=== PATIENT | male | born 1965 | race Caucasian/White ===

== ENCOUNTER 2017-11-18 13:26 | Day surgery (SDC) | payer MEDICARE, SELFPAY ==
[2017-11-18 15:03] VITALS: BP 144/99; PULSE 89; RESP 18; O2SAT 95; BMI 32.5
[2017-11-18 15:48] VITALS: BP 114/93; PULSE 92; RESP 20; O2SAT 98
[2017-11-18 15:49] VITALS: BP 115/85; PULSE 76; RESP 20; O2SAT 99
--- NOTE | 2017-11-18 15:52 | HMH.PMPROC ---
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 He is doing well with his pump. He does have some increasing pain with increased activity. We will refill his pump and increase his infusion today. He does have a normal gait. Motor strength of the lower extremities is 5/5. There is no gross sensory deficit. He is currently going at 1.2 mg per day Procedure Details:: Informed consent was obtained and the risks and benefits of the procedure was explained to the patient. The patient was taken to the procedure room. The pump was interrogated. The area over the pump was prepped using ChloraPrep. The pump was accessed with a 22-gauge needle. Approximately 6 mL's of the intrathecal solution was withdrawn and discarded. The pump was then refilled with 20 mL's of intrathecal morphine 10 mg per ml. The pump was interrogated and the infusion was increased to 1.5 mg per day from 1.2 mg per day. The patient tolerated the procedure well with no complication. Plan and Disposition:: We will follow-up with him in 3 months at his next pump refill.
[2017-11-18 16:26] VITALS: BP 127/85; PULSE 82; RESP 16; O2SAT 97
[2017-11-18 21:06] LABS: Amphetamine/Metha Screen,Urine Negative ng/mL (<1000); Barbiturates Screen,Urine Negative ng/mL (<200); Benzodiazepines Screen,Urine Negative ng/mL (200); Cannabinoid Screen,Urine Negative ng/mL (<50); Cocaine Screen,Urine Negative ng/g (<300); Methadone Screen,Urine Negative ng/mL (<300); Opiate Screen,Urine Negative ng/mL (<300); Phencyclidine Screen,Urine Negative ng/mL (<25)
[2017-11-29 11:08] LABS: Codeine Negative (Cutoff=100); Hydrocodone Negative (Cutoff=100); Hydromorphone Negative (Cutoff=100); Morphine Positive (.)
[2017-11-29 18:28] LABS: Opiates Positive (.)
== END 2017-11-18 16:27 | disposition home or self-care (01) ==
LOC: SC.PAINP 13:28
PROVIDERS: PCP Internal Medicine Adolescent Medicine; Visit Provider Nurse Anesthetist, Certified Registered
DX: M51.16 Intervertebral disc disorders with radiculopathy, lumbar region (principal); M96.1 Postlaminectomy syndrome, not elsewhere classified
CPT/HCPCS: 62370; 80305; 80361; G0480

== ENCOUNTER 2018-02-05 10:05 | Day surgery (SDC) | payer MEDICARE, SELFPAY ==
[2018-02-05 10:16] VITALS: BP 130/70; PULSE 106; RESP 22; TEMP 36.8; O2SAT 96; BMI 33.2
--- NOTE | 2018-02-05 10:20 | PC.NURSE ---
PATIENT ALERT/ORIENTED AND AMBULATORY AT ASSESSMENT. NO RESPIRATORY DISTRESS NOTED, RATE/DEPTH/RHYTHM APPROPRIATE.
--- NOTE | 2018-02-05 10:44 | HMH.PMPROC ---
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 Is doing well with his intrathecal pump. He is currently going at 1.5 mg per day. He does have some increased pain with increased activity and is requesting an increase in his daily dose today. We will refill him and increase him to 1.7 mg per day. He does have a normal gait. Motor strength of the lower extremities is 5 out of 5 there is no gross sensory deficit. Procedure Details:: Informed consent was obtained and the risks and benefits of the procedure was explained to the patient. The patient was taken to the procedure room. The pump was interrogated. The area over the pump was prepped using ChloraPrep. The pump was accessed with a 22-gauge needle. Approximately 6 mL of the intrathecal solution was withdrawn and discarded. The pump was then refilled with 20 mL's of intrathecal morphine 10 mg/mL. The pump was interrogated and the infusion was increased to 1.7 mg per day. PTC will remain the same. The patient tolerated the procedure well with no complication. Plan and Disposition:: We will follow-up with him in 2 weeks. We will reevaluate his symptoms at that time.
[2018-02-05 10:45] VITALS: BP 138/88; PULSE 101; RESP 20; O2SAT 98
[2018-02-05 10:46] VITALS: BP 121/88; PULSE 106; RESP 18
[2018-02-05 11:00] VITALS: BP 134/83; PULSE 98; RESP 18; O2SAT 97
== END 2018-02-05 11:00 | disposition home or self-care (01) ==
LOC: SC.PAINP 10:08
PROVIDERS: PCP Internal Medicine Adolescent Medicine; Visit Provider Anesthesiology
DX: M51.16 Intervertebral disc disorders with radiculopathy, lumbar region (principal); M96.1 Postlaminectomy syndrome, not elsewhere classified
CPT/HCPCS: 62370

== ENCOUNTER → 2018-06-25 11:42 | Outpatient (POV) | payer MEDICARE, SELFPAY ==
[2018-06-25] MEDS: IOPAMIDOL-200 (41%);10ML VIAL 10 ML IV (14:02)
== END ==
PROVIDERS: PCP Internal Medicine Adolescent Medicine; Visit Provider Anesthesiology
DX: Y99.9 Unspecified external cause status (principal)
CPT/HCPCS: Q9966

== ENCOUNTER → 2018-11-08 09:36 | Outpatient (POV) | payer MEDICARE, SELFPAY ==
--- NOTE | 2018-11-08 09:56 | HMH.PMPROC ---
- Procedure Date: 11/08/18 Time: 09:56 Anesthesiologist:: Daphney Phillips APRN Complications:: None Pre-procedure Diagnosis:: Degenerative disc disease lumbar spine with lumbar radiculopathy and postlaminectomy syndrome, sacroiliitis Post-procedure Diagnosis:: Same Indications for Procedure:: Patient is a pleasant 53-year-old white male who presents today for intrathecal pain pump adjustment. Patient has had increasing right SI joint pain. Patient has had SI joint injections in the past with good relief getting up to 80% relief for up to 6 months. Patient is currently on a equal periodic flow of 0.3 mg every 2 hours. He does well with this it denies side effects. Patient is having slight increase in his back pain. We will increase him today. Physical Exam General: Alert and oriented x3, no acute distress, pleasant and cooperative, [on room air] Lungs: Resps E/U, Symmetrical chest expansion, Eyes: PERRL Musculoskeletal: Flexion and extension of lumbar spine somewhat guarded secondary to pain, deep tendon reflexes normal, strength in upper and lower extremities [5/5], [abnormal gait noted], positive Ricco's test on the right side Neurological: speech clear, operator coating furnace equal, no gross sensory deficits Procedure Details:: Informed consent was obtained and the risk and benefits of the procedure were explained to the patient. The patient was taken to the procedure room where noninvasive monitoring was placed including noninvasive blood pressure cuff and pulse oximeter. Patient's pump was interrogated. The infusion rate was increased to 0.325 mg every 2 hours of morphine.. The patient tolerated the procedure well. Plan and Disposition:: We will follow-up with the patient and schedule a right SI joint injection for him. I believe it would be beneficial given his symptomology and his good relief in the past with this injection. Patient has been instructed to call the office if he has any issues prior to his next appointment. This note was dictated using voice recognition software and may contain errors or omissions
[2018-11-08 10:43] VITALS: BP 138/96; PULSE 101; RESP 18; O2SAT 98; BMI 32.5
== END ==
PROVIDERS: PCP Internal Medicine Adolescent Medicine; Visit Provider Clinical Nurse Specialist Family Health
DX: M51.36 Other intervertebral disc degeneration, lumbar region (principal); M96.1 Postlaminectomy syndrome, not elsewhere classified; M46.1 Sacroiliitis, not elsewhere classified
CPT/HCPCS: 62368

== ENCOUNTER → 2019-08-16 13:20 | Outpatient (CLI) | payer MEDICARE, SELFPAY ==
[2019-08-16 16:02] LABS: Amphetamine/Metha Screen,Urine Negative ng/mL (<1000); Barbiturates Screen,Urine Negative ng/mL (<200); Benzodiazepines Screen,Urine Negative ng/mL (<200); Cannabinoid Screen,Urine Negative ng/mL (<50); Cocaine Screen,Urine Negative ng/mL (<300); Methadone Screen,Urine Negative ng/mL (<300); Opiate Screen,Urine Positive ng/mL (<300); Phencyclidine Screen,Urine Negative ng/mL (<25)
[2019-08-22 15:09] LABS: Codeine Negative (Cutoff=100); Hydrocodone Negative (Cutoff=100); Hydromorphone Negative (Cutoff=100); Morphine Positive (.)
[2019-08-23 14:59] LABS: Opiates Positive (.)
== END ==
PROVIDERS: Visit Provider Clinical Nurse Specialist Family Health
DX: Z79.899 Other long term (current) drug therapy (principal)
CPT/HCPCS: 80305; 80361; 80365; G0480

== ENCOUNTER → 2019-12-22 06:18 | Outpatient (CLI) | payer MEDICARE, SELFPAY ==
--- NOTE | 2019-12-22 06:21 | NM_ITS ---
APPROVED REPORT Exam: Nuclear Stress Test Indication: chest pain..short of breath..[id number] Patient Location: Outpatient Stress Tech: Nahomi Jones [place] Tech:Roselyn SidhuJEFFERSON RT(R)(N) Ht: 6 ft 0 in Wt: 237 lbs HR: 84 bpm BP: 123/72 mmHg BSA: 2.29 m2 History: chest pain..short of breath..fatique Procedure: Patient received a 0.4 mg of intravenous Lexiscan, resting heart rate 84 bpm, resting blood pressure 123/72 mmHg, with Lexiscan maximum heart rate achived was 132 bpm which is Less than 85 % of the maximum predicted heart rate and blood pressure was 126/75 mmHg. Electrocardiogram Resting electrocardiogram showed sinus rhythm right ventricular conduction delay, with Lexiscan less than 1.[address] segment depression noted from the baseline EKG. The EKG portion of the Lexiscan Myoview is nondiagnostic. Cardiac Stress and Resting SPECT Images: Cardiac Stress and Resting SPECT images were obtained using technetium 99m Myoview 31.0 mCi stress and 10.51 mCi at rest. Gated SPECT with analysis of segmental wall motion and calculation of the ejection fraction also done. Cardiac stress and resting SPECT images show uniform myocardial activity without segmental perfusion abnormality, computer derived ejection fraction is 54% with no regional wall motion abnormality, right ventricle is mildly enlarged with normal contractility. Conclusion: 1. The EKG portion of the Lexiscan Myoview is nondiagnostic. 2. No scintigraphic evidence of reversible ischemia seen, computer derived ejection fraction 54% with no regional wall motion abnormality, right ventricle is mildly enlarged with normal contractility. 3. Likely normal Lexiscan Myoview study. Electronically signed by : Percy Sims, 12/22/2019 15:11:09
--- NOTE | 2019-12-22 06:21 | CA_ITS ---
APPROVED REPORT Exam: Pharmacologic Technologist: Nahomi Jones, Ht: 6 ft 0 in Wt: 237 lbs BSA: 2.29 m2 Indications: SOB,CP Medical History Medications: Omepazole,,,,, Stress Test Details Test: LEXISCAN Reason for pharmacologic stress test: physical limitation. Reversal agent Aminophyline 100.0 mg, given intravenously for chest pain. HR Resting HR: 93 bpm Max Heart Rate (APMHR): 167 bpm Max HR Achieved: 136 bpm Target HR (85% APMHR): 141 bpm % of APMHR: 81 BP Resting BP: 123/72 mmHg Max BP: 126/75 mmHg ECG Clinical Exercise duration: 04:26 min Highest Stage Achieved: Exercise capacity: 1.0 METs Stress ECG Conclusion SOA, Malaise, Flushed, mild nausea, mild chest pressure symptoms were noted. / No arrhythmias / No significant ST-T changes Unremarkable Lexiscan stress / Myoview images reported separately Electronically signed by : Percy Sims, 12/22/2019 15:09:14
--- NOTE | 2019-12-22 06:21 | CA_ITS ---
APPROVED REPORT EXAM: Comprehensive 2D, Doppler, and color-flow Echocardiogram Silk Screen Processor: Coral Pierce RVT Ht: 6 ft 0 in Wt: 253lbs BSA: 2.35 BP: 121/81 mmHg Indications: Chest Pain, Shortness of Breath, Palpitations,Ex smoker,Fatigue,Edema, Liver disease 2D Dimensions LVOT 2.59 cm (M/F) 1.5-2.5 M-Mode Dimensions RVDd 3.26 cm (0.9-2.6) LVDd 4.15 cm (3.5-5.7) LVDs 2.95 cm (3.5-5.7) IVSd 1.34 cm (0.6-1.1) PWd 0.58 cm (0.6-1.1) EF (Teich) 56.00% FS 28.90% EDV (Teich) 76.40 mL ESV (Teich) 33.60 mL LV Diastology E/A Ratio 0.72 Mitral Valve MV A Velocity 44.00 (40-130 cm/s) Left Ventricle Left atrium is mildly enlarged, left ventricle is normal size, mild concentric left ventricular hypertrophy, visually estimated ejection fraction 55% with no regional wall motion abnormality, endocardial sounds are poorly visualized, grade 1 diastolic dysfunction seen without tissue Doppler evidence of raise left atrial pressure. Right Ventricle Right atrium and right ventricle are mildly enlarged with normal contractility. Aortic Valve Aortic valve is minimally thickened and fibrosed, there is no aortic stenosis or aortic insufficiency. Mitral Valve Mitral valve is grossly normal, there is no mitral stenosis, there is mild mitral regurgitation. Tricuspid Valve Tricuspid valve is grossly normal, there is mild tricuspid regurgitation. Tricuspid regurgitation jet velocity is inadequate for calculation of the right ventricular systolic pressure. Pulmonic Valve Pulmonic valve is poorly visualized. Great Vessels Aortic root is normal size. Pericardium No significant pericardial effusion noted Conclusion 1. Mild biatrial abdomen, normal left ventricular size, mild concentric left ventricular hypertrophy, visually estimated ejection fraction 55% with no regional wall motion abnormality, grade 1 diastolic dysfunction seen without tissue Doppler evidence of raise left atrial pressure. 2. Mildly enlarged right ventricle with normal contractility. 3. Mild mitral and tricuspid regurgitation. 4. No significant pericardial effusion noted. Electronically signed by : Percy Sims, 12/23/2019 13:29:24
--- NOTE | 2019-12-22 06:31 | CT_ITS ---
PROCEDURE: CT CHEST WO CON CLINICAL INDICATION: shortness of breath Multiple calcified splenic granulomas are noted. COMPARISON: No exams were available for comparison TECHNIQUE: Axial images obtained with sagittal and coronal reformats. All CT scans at the facility use one or more dose reduction, viz: automated exposure control, ma/kV adjustment per patient size (including targeted exams where dose is matched to indication, i.e. head), or iterative reconstruction technique. FINDINGS: HEART AND MEDIASTINAL STRUCTURES: Multiple calcified mediastinal and left hilar lymph nodes compatible with healed granulomatous disease is noted. LUNGS AND PLEURAL SPACES: There is no acute infiltrate. There is scarring in the left apex. There is a calcified granuloma in the left upper lobe. There is no pleural or pericardial effusion or intrathoracic mass. There is mild bilateral gynecomastia. BONY STRUCTURES: No acute bony abnormalities apparent. A 5 millimeter sclerotic focus is seen in the anterior right lateral aspect of T9. Benign bone island is favored. UPPER ABDOMEN: There is splenomegaly spleen measuring up to 15.1 centimeters pole to pole. Multiple calcified splenic granulomas are noted. There has been prior cholecystectomy. ADDITIONAL FINDINGS: Spinal electro projects along the posterior central spinal canal at T11. IMPRESSION: No acute cardiopulmonary pathology. Healed granulomatous disease. Nonspecific splenomegaly. Dictated by: Cristobal Licona 12/22/2019 09:45 Electronically signed by Cristobal Licona in [place] 12/22/2019 09:45
--- NOTE | 2019-12-22 08:56 | HMH.ITSHM ---
Current Home Medications as stated by this patient Duke Espinoza or industrial relations representative. [] omeprazole
== END ==
PROVIDERS: PCP Family Medicine; Visit Provider Urology
DX: R06.02 Shortness of breath; R07.89 Other chest pain; R42 Dizziness and giddiness
CPT/HCPCS: 71250; 78452; 93017; 93306; A9502; J2785

== ENCOUNTER 2020-01-26 08:19 | Day surgery (SDC) | payer MEDICARE, SELFPAY ==
[2020-01-26] VITALS (11 sets, daily range): BP systolic 96–134; BP diastolic 56–81; PULSE 54–92; RESP 16–20; TEMP 36.5; O2SAT 90–98; BMI 33.6
--- NOTE | 2020-01-26 | IR_ITS ---
APPROVED REPORT Patient Location: Outpatient Corporate Relations Director: JEFFERSON Soni RT (R) PROCEDURES Left heart catheterization Left ventriculogram Selective coronary angiogram INDICATION Recalcitrant angina pectoris Informed consent was obtained prior to the procedure. COMPLICATIONS none Estimated Blood Loss: less than 10 mls TECHNIQUE One percent lidocaine used to anesthetize the right anterior aspect of the wrist. The right radial artery was accessed via the Seldinger technique. A 6 German sheath was placed in the right radial artery. 2.5 mg of verapamil, 800 mcg of nitroglycerin, 1mg Lidocaine and 5000 U Heparin were given through the arterial sheath. The trap catheter was also used to perform left heart catheterization, left ventriculogram and selective coronary angiogram. At the end of the procedure the sheath was removed good hemostasis was achieved using Traclet band, patient was transferred to the postop holding area in stable condition. ANGIOGRAPHIC RESULTS The left main artery Normal The left anterior descending artery Is proximally normal and has mid vessel 10% luminal irregularities The circumflex artery Mild 10% luminal irregularities The right coronary artery Large dominant normal The KRAUSE ventriculogram reveals Normal 65% The left ventricular end-diastolic pressure 25 mmHg IMPRESSION Mild vwk-oara-cakijyyh coronary artery disease Normal ejection fraction Elevated LVEDP consistent with diastolic dysfunction PLAN 1. Medical management Electronically signed by : Arden Baez, 01/26/2020 10:14:41
[2020-01-26 09:12] LABS: Basophils # 0.1 K/mm3 (0-0.2); Basophils % 1.3 % (0.1-2.0); Eosinophils # 0.1 K/mm3 (0.0-0.4); Eosinophils % 2.7 % (0.1-12.0); Hematocrit 44.6 % (42.0-52.0); Hemoglobin 14.5 g/dL (14.1-18.0); Lymphocytes # 1.6 K/mm3 (0.7-4.5); Lymphocytes % 33.4 % (10-50); Mean Corpuscular HGB Conc 32.5 g/dL (31.8-35.4); Mean Corpuscular Hemoglobin 28.1 pg (27.0-31.2); Mean Corpuscular Volume 86.6 fl (80-94); Mean Platelet Volume 9.6 fl (7.4-10.4); Monocytes # 0.3 K/mm3 (0.1-1.0); Monocytes % 6.3 % (1.7-9.3); Neutrophils # 2.7 K/mm3 (1.8-7.8); Neutrophils % 56.3 % (37.0-80.0); Platelet Count 182 K/mm3 (142-424); Red Blood Count 5.15 M/mm3 (4.60-6.20); Red Cell Distribution Width 13.1 % (11.5-17.5); White Blood Count 4.9 K/mm3 (4.8-10.8)
[2020-01-26 09:15] LABS: Chloride 101 mmol/L (98-107); Potassium 3.9 mmoL/L (3.5-5.1); Sodium 137 mmol/L (136-145)
[2020-01-26 09:18] LABS: Anion Gap 14.9 mEq/L (5-15); Blood Urea Nitrogen 15 mg/dl (9-20); Calcium 9.5 mg/dl (8.4-10.2); Carbon Dioxide 25 mmol/L (22.0-30.0); Creatinine Clearance Estimated 170 mL/min (50-200); Estimated Glomerular Filt Rate 101 ml/min (>60); GFR (African American) 122 ML/MIN (>60); Glucose 119 mg/dl (74-100)
--- NOTE | 2020-01-26 10:18 | CA_ITS ---
APPROVED REPORT Ribber: NARA Laterality: Bilateral Study Quality: Good Indications: dizziness and syncope Doppler Spectral Velocity Analysis dICA (R) 47.10/13.50 cm/s dICA (L) 53.60/19.90 cm/s Maryann (R) 55.90/23.80 cm/s Maryann (L) 51.10/16.60 cm/s pICA (R) 63.10/10.70 cm/s pICA (L) 69.20/14.30 cm/s dCCA (R) 96.00/20.10 cm/s dCCA (L) 121.90/26.40 cm/s pCCA (R) 78.60/10.70 cm/s pCCA (L) 133.90/22.10 cm/s Vert (R) 54.20/5.90 cm/s Vert (L) 41.00/12.90 cm/s ICA/CCA 0.70 ICA/CCA 0.60 Findings Duplex evaluation demonstrates stenosis of the right proximal internal carotid artery <20% with PSV <140 cm/sec, EDV <100 cm/sec, and IC/CC Ratio <4.0.Duplex evaluation demonstrates stenosis of the left proximal internal carotid artery <20% with PSV <140 cm/sec, EDV <100 cm/sec, and IC/CC Ratio <4.0.Antegrade flow seen bilateral vertebral arteries. Conclusion No increased velocities to suggest hemodynamically significant stenosis in either internal carotid artery. Electronically signed by : Rajesh Cruz MD 01/26/2020 16:16:38
--- NOTE | 2020-01-26 13:13 | SUR.PHASEII ---
instructions done over phone with family member, stated understanding.
== END 2020-01-26 13:01 | disposition home or self-care (01) ==
LOC: RT 08:22
PROVIDERS: Internal Medicine; PCP Family Medicine; Visit Provider Physician Assistant
DX: R42 Dizziness and giddiness (principal); R55 Syncope and collapse; I25.118 Atherosclerotic heart disease of native coronary artery with other forms of angina pectoris; I11.0 Hypertensive heart disease with heart failure; I50.9 Heart failure, unspecified; Z87.891 Personal history of nicotine dependence; Z79.899 Other long term (current) drug therapy
CPT/HCPCS: 80048; 85025; 93458; 93880; 99152; C1725; C1769; J1644; Q9967

== ENCOUNTER → 2020-02-16 13:06 | Outpatient (CLI) | payer MEDICARE, SELFPAY ==
[2020-02-16 15:01] LABS: Blood Urea Nitrogen 13 mg/dl (9-20); Calcium 9.9 mg/dl (8.4-10.2); Carbon Dioxide 28 mmol/L (22.0-30.0); Chloride 97 mmol/L (98-107); Estimated Glomerular Filt Rate 88 ml/min (>60); GFR (African American) 107 ML/MIN (>60); Glucose 128 mg/dl (74-100); Sodium 136 mmol/L (136-145)
== END ==
PROVIDERS: Visit Provider Nurse Practitioner Family
DX: I25.118 Atherosclerotic heart disease of native coronary artery with other forms of angina pectoris (principal); R06.02 Shortness of breath; R94.30 Abnormal result of cardiovascular function study, unspecified
CPT/HCPCS: 36415; 80048

== ENCOUNTER → 2020-03-04 09:24 | Outpatient (CLI) | payer MEDICARE, SELFPAY ==
[2020-03-05 17:20] LABS: Covid-19 Nasal PCR Sendout Lex Not Detected
--- NOTE | 2020-03-05 17:36 | PC.NURSE ---
Notified PM retail pharmacy manager of negative COVID results. Attempted to reach patient by phone to give results, no answer, left message for pt to return call.
--- NOTE | 2020-03-05 19:00 | PC.NURSE ---
pt notified of negative COVID 19 results.
== END ==
PROVIDERS: PCP Family Medicine; Visit Provider Anesthesiology
DX: Z03.818 Encounter for observation for suspected exposure to other biological agents ruled out (principal)
CPT/HCPCS: U0003

== ENCOUNTER 2020-03-06 13:51 | Day surgery (SDC) | payer MEDICARE, SELFPAY ==
[2020-03-06 14:08] VITALS: BP 126/72; PULSE 95; RESP 18; O2SAT 96; BMI 32.5
[2020-03-06 14:39] VITALS: BP 123/77; PULSE 79; RESP 18
[2020-03-06 14:40] VITALS: BP 125/78; PULSE 85; RESP 18; O2SAT 99
--- NOTE | 2020-03-06 14:48 | P.PCN_ITS ---
- Procedure Date: 03/06/20 Time: 14:49 Anesthesiologist:: Daphney Phillips APRN Complications:: None Pre-procedure Diagnosis:: Degenerative disc disease lumbar spine with lumbar radiculopathy Post-procedure Diagnosis:: Same Indications for Procedure:: Patient is a very pleasant 54-year-old white male who presents today for intrathecal Pain pump refill and reprogram. Patient's Cyril #[id number] reviewed and appropriate. Patient is currently on morphine periodic flow 0.6 mg every 2 hours. He would like a slight increase today. He rates his pain a 6 out of 10 Physical Exam General: Alert and oriented x3, no acute distress, pleasant and cooperative, [on room air] Lungs: Resps E/U, Symmetrical chest expansion, Eyes: PERRL Musculoskeletal: Flexion and extension of lumbar spine somewhat guarded secondary to pain, deep tendon reflexes normal, strength in upper and lower extremities [5/5], [abnormal gait noted] Neurological: speech clear, criminal analyst equal, no gross sensory deficits Procedure Details:: Informed consent was obtained and the risk and benefits of the procedure were explained to the patient. The patient was taken to the procedure room where noninvasive monitoring was placed including noninvasive blood pressure cuff and pulse oximeter. Patient's pump was interrogated. The area over the pump was cleansed with chlorhexidine as a cleansing solution. In sterile fashion the pump was accessed with a 22-gauge needle. Approximately 7.5 mL's were removed of the pump solution and discarded appropriately. The pump was then refilled with 20 mL's of morphine 35 mg/mL. The needle was withdrawn and a bandage was placed over the puncture site. The infusion rate was reprogrammed to increased 0.7 mg per 2 hours. The patient tolerated the procedure well. Plan and Disposition:: I will follow-up with the patient at his next intrathecal pain pump refill and reprogram he is been instructed to call the office if he has any issues prior to his next appointment. Dr. Schwartz has reviewed this note and agrees with this plan of care. This note was dictated using voice recognition software and may contain errors or omissions
[2020-03-06 14:51] VITALS: BP 115/70; PULSE 83; RESP 18; O2SAT 96
== END 2020-03-06 14:53 | disposition home or self-care (01) ==
LOC: SC.PAINP 13:53
PROVIDERS: PCP Family Medicine; Visit Provider Clinical Nurse Specialist Family Health
DX: M51.16 Intervertebral disc disorders with radiculopathy, lumbar region (principal)
CPT/HCPCS: 62370

== ENCOUNTER 2020-05-07 14:28 | Day surgery (SDC) | payer MEDICARE, SELFPAY ==
[2020-05-07 14:40] VITALS: BP 127/75; PULSE 61; RESP 18; TEMP 36.7; O2SAT 96; BMI 31.8
--- NOTE | 2020-05-07 14:46 | P.PCN_ITS ---
- Procedure Date: 05/07/20 Time: 14:47 Anesthesiologist:: Daphney Phillips APRN Complications:: None Pre-procedure Diagnosis:: Degenerative disc disease lumbar spine with lumbar radiculopathy bilateral knee pain Post-procedure Diagnosis:: Same Indications for Procedure:: Patient is a pleasant 54-year-old white male who presents today for intrathecal pain pump refill and reprogram. Patient's Cyril reviewed and appropriate. Currently on morphine periodic flow going 0.7 mg every 2 hours. Overall doing well. He denies side effects to his medication. He rates his pain today 4 out of 10. Physical Exam General: Alert and oriented x3, no acute distress, pleasant and cooperative, [on room air] Lungs: Resps E/U, Symmetrical chest expansion, Eyes: PERRL Musculoskeletal: Flexion and extension of lumbar spine somewhat guarded secondary to pain, deep tendon reflexes normal, strength in upper and lower extremities [5/5], [abnormal gait noted] Neurological: speech clear, special procedures tech equal, no gross sensory deficits Procedure Details:: Informed consent was obtained and the risk and benefits of the procedure were explained to the patient. The patient was taken to the procedure room where noninvasive monitoring was placed including noninvasive blood pressure cuff and pulse oximeter. Patient's pump was interrogated. The area over the pump was c leansed with chlorhexidine as a cleansing solution. In sterile fashion the pump was accessed with a 22-gauge needle. Approximately 5 mL's were removed of the pump solution and discarded appropriately. The pump was then refilled with 20 mL's of morphine 35 mg/mL. The needle was withdrawn and a bandage was placed over the puncture site. The infusion rate was reprogrammed to continued on periodic flow 0.7 mg every 2 hours. The patient tolerated the procedure well. Plan and Disposition:: We will set the patient up for bilateral intra-articular knee injections given his symptomology I do believe this would be beneficial. We will continue his intrathecal therapy. He is been instructed to call the office if he has any issues prior to his next appointment. Dr. Schwartz has reviewed this note and agrees with this plan of care. This note was dictated using voice recognition software and may contain errors or omissions
[2020-05-07 14:56] VITALS: BP 145/85; PULSE 88; RESP 18; O2SAT 95
[2020-05-07 15:08] VITALS: BP 145/88; PULSE 85; RESP 18; O2SAT 96
[2020-05-07 15:14] VITALS: BP 120/75; PULSE 79; RESP 18; O2SAT 96
== END 2020-05-07 15:15 | disposition home or self-care (01) ==
LOC: SC.PAINP 14:31
PROVIDERS: PCP Family Medicine; Visit Provider Clinical Nurse Specialist Family Health
DX: M51.16 Intervertebral disc disorders with radiculopathy, lumbar region (principal); M25.561 Pain in right knee; M25.562 Pain in left knee; K21.9 Gastro-esophageal reflux disease without esophagitis; Z87.39 Personal history of other diseases of the musculoskeletal system and connective tissue; Z90.49 Acquired absence of other specified parts of digestive tract; Z88.8 Allergy status to other drugs, medicaments and biological substances; Z79.899 Other long term (current) drug therapy
CPT/HCPCS: 62370

== ENCOUNTER 2020-05-25 09:19 | Day surgery (SDC) | payer MEDICARE, SELFPAY ==
[2020-05-25 09:43] VITALS: BP 123/72; PULSE 84; RESP 18; TEMP 36.4; O2SAT 95; BMI 31.1
--- NOTE | 2020-05-25 10:25 | P.PCN_ITS ---
- Procedure Date: 05/25/20 Time: 10:25 Anesthesiologist:: Silvestre Schwartz MD Complications:: None Pre-procedure Diagnosis:: Bilateral knee pain with degenerative osteoarthritis Post-procedure Diagnosis:: Same Indications for Procedure:: This patient is a pleasant 54-year-old white male who we have been treating for low back pain with lumbar radicular symptoms. He does currently have an in trathecal morphine pain pump currently going at 0.7 mg every 2 hours on periodic flow. He is doing very well with his pump. He does have some increasing pain over both knees with degenerative osteoarthritis and chronic knee pain. We will do bilateral intra-articular knee injections today to help him with his pain symptoms. Procedure Details:: Bilateral knee pain Informed consent was obtained and the risk and benefits of the procedure was explained to the patient. Patient was taken to the procedure room. Both knees were prepped using ChloraPrep. a 25-gauge needle was used first laterally then medially to inject 10 mL bupivacaine 0.25% and Depo-Medrol 40 mg into each knee. We used a total of 80 mg Depo-Medrol for both knees. Patient tolerated procedure well with no complications. Plan and Disposition:: We will follow-up with him in 2 weeks. Will reevaluate symptoms at that time. He is commenting that he is having some increasing shoulder pain. Left shoulder is worse. He has had a previous rotator cuff tear. We will look at possibly doing injections in his left shoulder in the future.
[2020-05-25 10:27] VITALS: BP 135/88; BP 140/78; PULSE 85; RESP 18; O2SAT 98
[2020-05-25 10:45] VITALS: BP 105/68; PULSE 69; RESP 20; O2SAT 95
== END 2020-05-25 10:45 | disposition home or self-care (01) ==
LOC: SC.PAINP 09:21
PROVIDERS: PCP Family Medicine; Visit Provider Anesthesiology
DX: M17.0 Bilateral primary osteoarthritis of knee (principal); I10 Essential (primary) hypertension; K21.9 Gastro-esophageal reflux disease without esophagitis; Z87.891 Personal history of nicotine dependence; I25.10 Atherosclerotic heart disease of native coronary artery without angina pectoris; J44.9 Chronic obstructive pulmonary disease, unspecified; F41.9 Anxiety disorder, unspecified; F32.9 Major depressive disorder, single episode, unspecified; Z87.39 Personal history of other diseases of the musculoskeletal system and connective tissue; Z90.49 Acquired absence of other specified parts of digestive tract; G47.9 Sleep disorder, unspecified; Z79.899 Other long term (current) drug therapy
CPT/HCPCS: 20610; J1030

== ENCOUNTER → 2020-06-16 10:31 | Outpatient (CLI) | payer MEDICARE, SELFPAY ==
[2020-06-16 11:43] LABS: Basophils # 0.1 K/mm3 (0-0.2); Eosinophils # 0.1 K/mm3 (0.0-0.4); Eosinophils % 1.6 % (0.1-12.0); Hematocrit 43.1 % (42.0-52.0); Hemoglobin 14.8 g/dL (14.1-18.0); Lymphocytes # 1.7 K/mm3 (0.7-4.5); Lymphocytes % 29.7 % (10-50); Mean Corpuscular HGB Conc 34.3 g/dL (31.8-35.4); Mean Corpuscular Hemoglobin 28.9 pg (27.0-31.2); Mean Corpuscular Volume 84.1 fl (80-94); Mean Platelet Volume 7.7 fl (7.4-10.4); Monocytes # 0.3 K/mm3 (0.1-1.0); Monocytes % 4.8 % (1.7-9.3); Neutrophils # 3.5 K/mm3 (1.8-7.8); Neutrophils % 62.9 % (37.0-80.0); Platelet Count 163 K/mm3 (142-424); Red Blood Count 5.12 M/mm3 (4.60-6.20); Red Cell Distribution Width 13.7 % (11.5-17.5); White Blood Count 5.6 K/mm3 (4.8-10.8)
[2020-06-16 13:02] LABS: Alanine Aminotransferase 14 U/L (12-78); Albumin Level 4.4 g/dl (3.5-5.0); Albumin/Globulin Ratio 1.4 (1.1-1.8); Alkaline Phosphatase 159 U/L (38-126); Anion Gap 15.1 mEq/L (5-15); Aspartate Amino Transferase 22 U/L (17-59); Bilirubin,Total 0.7 mg/dl (0.2-1.3); Blood Urea Nitrogen 15 mg/dl (9-20); Calcium 9.3 mg/dl (8.4-10.2); Carbon Dioxide 27 mmol/L (22.0-30.0); Chloride 99 mmol/L (98-107); Chol/HDL Ratio 6.9 (1-3.5); Cholesterol 264 mg/dl (140-200); Estimated Glomerular Filt Rate 101 ml/min (>60); GFR (African American) 122 ML/MIN (>60); Globulin 3.1 g/dL (1.3-3.2); Glucose 100 mg/dl (74-100); HDL Cholesterol 38 mg/dl (40-60); Potassium 4.1 mmoL/L (3.5-5.1); Sodium 137 mmol/L (136-145); Total Protein,Serum 7.5 g/dl (6.3-8.2); Triglycerides 232 mg/dl (30-150); VLDL Cholesterol 46 mg/dL (0-40)
[2020-06-16 13:13] LABS: Direct LDL Cholesterol 177.31 mg/dL (100-129)
[2020-06-16 13:32] LABS: Thyroid Stimulating Hormone 4.28 uIU/mL (0.465-4.68)
== END ==
PROVIDERS: Visit Provider Family Medicine
DX: I10 Essential (primary) hypertension (principal); F41.1 Generalized anxiety disorder
CPT/HCPCS: 36415; 80053; 80061; 84443; 85025

== ENCOUNTER 2020-07-02 12:26 | Day surgery (SDC) | payer MEDICARE, SELFPAY ==
[2020-07-02 12:45] VITALS: BP 111/66; BP 111/69; PULSE 87; PULSE 91; RESP 18; TEMP 36.4; O2SAT 95; BMI 31.3
[2020-07-02 12:55] VITALS: BP 118/75; PULSE 91
[2020-07-02 12:56] VITALS: BP 119/78; PULSE 92; RESP 18; O2SAT 96
--- NOTE | 2020-07-02 12:59 | P.PCN_ITS ---
- Procedure Date: 07/02/20 Time: 12:59 Anesthesiologist:: Daphney Phillips APRN Complications:: None Pre-procedure Diagnosis:: Degenerative disc disease lumbar spine with lumbar radiculopathy Post-procedure Diagnosis:: Same Indications for Procedure:: Patient is a pleasant 54-year-old white male who we are treating for low back pain with lumbar radiculopathy. He is currently on intrathecal morphine pain pump going at 0.7 mg every 2 hours. Patient denies side effects with medication overall does well. He is going to have a urine drug screen today. His past drug screens have been appropriate. Patient Cyril reviewed and appropriate. Physical Exam General: Alert and oriented x3, no acute distress, pleasant and cooperative, Lungs: Resps E/U, Symmetrical chest expansion, Eyes: PERRL Musculoskeletal: Flexion and extension of lumbar spine somewhat guarded secondary to pain, deep tendon reflexes normal, strength in upper and lower extremities [5/5], normal gait noted Neurological: speech clear, hard hat diver equal, no gross sensory deficits Procedure Details:: Informed consent was obtained and the risk and benefits of the procedure were explained to the patient. The patient was taken to the procedure room where noninvasive monitoring was placed including noninvasive blood pressure cuff and pulse oximeter. Patient's pump was interrogated. The area over the pump was cleansed with chlorhexidine as a cleansing solution. In sterile fashion the pump was accessed with a 22-gauge needle. Approximately 7 mL's were removed of the pump solution and discarded appropriately. The pump was then refilled with 20 mL's of morphine 35 mg/mL. The needle was withdrawn and a bandage was placed over the puncture site. The infusion rate was reprogrammed to continue at 0.7 mg every 2 hours. The patient tolerated the procedure well. Plan and Disposition:: I will see the patient back at his next intrathecal pain pump refill and reprogram he has been instructed to call the office if he has any issues prior to his next appointment. Dr. Schwartz has reviewed this note and agrees with this plan of care. This note was dictated using voice recognition software and may contain errors or omissions
== END 2020-07-02 13:09 | disposition home or self-care (01) ==
LOC: SC.PAINP 12:29
PROVIDERS: PCP Family Medicine; Visit Provider Clinical Nurse Specialist Family Health
DX: M51.16 Intervertebral disc disorders with radiculopathy, lumbar region (principal); I10 Essential (primary) hypertension; K21.9 Gastro-esophageal reflux disease without esophagitis; Z87.39 Personal history of other diseases of the musculoskeletal system and connective tissue; Z90.49 Acquired absence of other specified parts of digestive tract
CPT/HCPCS: 95991

== ENCOUNTER 2020-09-03 13:43 | Day surgery (SDC) | payer MEDICARE, SELFPAY ==
[2020-09-03 14:00] VITALS: BP 122/78; PULSE 96; RESP 18; TEMP 36.4; O2SAT 95; BMI 31.1
[2020-09-03 14:24] VITALS: BP 114/75; PULSE 95; RESP 18
[2020-09-03 14:25] VITALS: BP 117/84; PULSE 85; RESP 18; O2SAT 98
--- NOTE | 2020-09-03 14:32 | HMH.PMPROC ---
- Procedure Date: 09/03/20 Time: 14:32 Anesthesiologist:: Daphney Phillips APRN Complications:: None Pre-procedure Diagnosis:: Degenerative disc disease lumbar spine lumbar radiculopathy Post-procedure Diagnosis:: Same Indications for Procedure:: Patient is a very pleasant 54-year-old white male who presents today for intrathecal pain pump refill and reprogram he would like a slight increase today. He rates the pain today a 5 out of 10. He denies any side effects his medication. [facility] #[id number] reviewed and appropriate. Drug screens have been appropriate Physical Exam General: Alert and oriented x3, no acute distress, pleasant and cooperative, [on room air] Lungs: Resps E/U, Symmetrical chest expansion, Eyes: PERRL Musculoskeletal: Flexion and extension of lumbar spine somewhat guarded secondary to pain, deep tendon reflexes normal, strength in upper and lower extremities [5/5], [abnormal gait noted] Neurological: speech clear, central sterile tech equal, no gross sensory deficits Procedure Details:: Informed consent was obtained and the risk and benefits of the procedure were explained to the patient. The patient was taken to the procedure room where noninvasive monitoring was placed including noninvasive blood pressure cuff and pulse oximeter. Patient's pump was interrogated. The area over the pump was cleansed with chlorhexidine as a cleansing solution. In sterile fashion the pump was accessed with a 22-gauge needle. Approximately 5.5 mL's were removed of the pump solution and discarded appropriately. The pump was then refilled with 20 mL's of morphine 35 mg/mL. The needle was withdrawn and a bandage was placed over the puncture site. The infusion rate was reprogrammed to 0.8 mg every 2 hours. The patient tolerated the procedure well. Plan and Disposition:: We will follow up with the patient at his next intrathecal pain pump refill and reprogram he has been instructed to call the office if he has any issues prior to his next appointment. Dr. Schwartz has reviewed this note and agrees with this plan of care. This note was dictated using voice recognition software and may contain errors or omissions
[2020-09-03 14:35] VITALS: BP 109/73; PULSE 89; RESP 18; O2SAT 95
== END 2020-09-03 14:36 | disposition home or self-care (01) ==
LOC: SC.PAINP 13:45
PROVIDERS: PCP Family Medicine; Visit Provider Clinical Nurse Specialist Family Health
DX: M51.16 Intervertebral disc disorders with radiculopathy, lumbar region (principal); Z45.1 Encounter for adjustment and management of infusion pump; I10 Essential (primary) hypertension; E78.5 Hyperlipidemia, unspecified; I25.10 Atherosclerotic heart disease of native coronary artery without angina pectoris; K21.9 Gastro-esophageal reflux disease without esophagitis; Z90.49 Acquired absence of other specified parts of digestive tract
CPT/HCPCS: 62370

== ENCOUNTER 2020-10-22 13:57 | Day surgery (SDC) | payer MEDICARE, SELFPAY ==
[2020-10-22 14:07] VITALS: BP 117/73; PULSE 90; RESP 18; TEMP 36.4; O2SAT 98; BMI 31.8
[2020-10-22 14:23] VITALS: BP 129/78; PULSE 85; RESP 18
[2020-10-22 14:27] VITALS: BP 130/75; PULSE 94; RESP 18; O2SAT 97
--- NOTE | 2020-10-22 14:30 | HMH.PMPROC ---
- Procedure Date: 10/22/20 Time: 14:30 Anesthesiologist:: Daphney Phillips APRN Complications:: None Pre-procedure Diagnosis:: Degenerative disc disease lumbar spine lumbar radiculopathy Post-procedure Diagnosis:: Same Indications for Procedure:: Patient is a pleasant 55-year-old white male who presents today for intrathecal pain pump refill and reprogram. He rates his pain today 4 out of 10. He denies any side effects his medication he would like a slight increase. [facility] #[id number] reviewed and appropriate. Patient struck screens have been appropriate. Procedure Details:: Informed consent was obtained and the risk and benefits of the procedure were explained to the patient. The patient was taken to the procedure room where noninvasive monitoring was placed including noninvasive blood pressure cuff and pulse oximeter. Patient's pump was interrogated. The area over the pump was cleansed with chlorhexidine as a cleansing solution. In sterile fashion the pump was accessed with a 22-gauge needle. Approximately 7.5 mL's were removed of the pump solution and discarded appropriately. The pump was then refilled with 20 mL's of morphine 35 mg/mL. The needle was withdrawn and a bandage was placed over the puncture site. The infusion rate was reprogrammed to 0.85 mg every 2 hours. The patient tolerated the procedure well. Plan and Disposition:: We will see the patient back at his next intrathecal pain pump refill and reprogram he has been instructed to call the office if he has any issues prior to his next appointment. Dr. Schwartz has reviewed this note and agrees with this plan of care. This note was dictated using voice recognition software and may contain errors or omissions
[2020-10-22 14:42] VITALS: BP 115/68; PULSE 91; RESP 20; O2SAT 98
== END 2020-10-22 14:44 | disposition home or self-care (01) ==
LOC: SC.PAINP 13:59
PROVIDERS: PCP Family Medicine; Visit Provider Clinical Nurse Specialist Family Health
DX: M51.16 Intervertebral disc disorders with radiculopathy, lumbar region (principal); I10 Essential (primary) hypertension; K21.9 Gastro-esophageal reflux disease without esophagitis; F41.9 Anxiety disorder, unspecified; F32.9 Major depressive disorder, single episode, unspecified; K75.9 Inflammatory liver disease, unspecified; Z88.6 Allergy status to analgesic agent; Z79.899 Other long term (current) drug therapy
CPT/HCPCS: 62370

== ENCOUNTER → 2020-12-10 15:17 | Day surgery (SDC) | payer MEDICARE, SELFPAY ==
[2020-12-10 15:34] VITALS: BP 139/83; PULSE 100; RESP 20; TEMP 36.3; O2SAT 98; BMI 32.5
[2020-12-10 15:38] VITALS: BP 124/83; PULSE 107; RESP 18; TEMP 36.8; O2SAT 97
[2020-12-10 15:46] VITALS: BP 125/88; BP 125/89; PULSE 108; RESP 18; O2SAT 98
--- NOTE | 2020-12-10 15:49 | HMH.PMPROC ---
- Procedure Date: 12/10/20 Time: 15:55 Anesthesiologist:: Daphney Phillips APRN Complications:: None Pre-procedure Diagnosis:: Degenerative disc disease lumbar spine lumbar radiculopathy Post-procedure Diagnosis:: Same Indications for Procedure:: Patient is a pleasant 55-year-old white male who presents today for intrathecal pain pump refill and reprogram he rates his pain a 4 out of 10 he does not need any changes to his intrathecal infusion. [facility] #[id number] reviewed and appropriate drug screens have been appropriate. Patient denies side effects with medications. Procedure Details:: Informed consent was obtained and the risk and benefits of the procedure were explained to the patient. The patient was taken to the procedure room where noninvasive monitoring was placed including noninvasive blood pressure cuff and pulse oximeter. Patient's pump was interrogated. The area over the pump was cleansed with chlorhexidine as a cleansing solution. In sterile fashion the pump was accessed with a 22-gauge needle. Approximately 6 mL's were removed of the pump solution and discarded appropriately. The pump was then refilled with 20 mL's of morphine 35 mg/mL. The needle was withdrawn and a bandage was placed over the puncture site. The infusion rate was reprogrammed to continue at 0.85 mg every 2 hours. The patient tolerated the procedure well. Plan and Disposition:: We will follow up with the patient and his next intrathecal pain pump refill and reprogram he has been instructed to call the office if he has any issues prior to his next appointment. Dr. Schwartz has reviewed this note and agrees with this plan of care. This note was dictated using voice recognition software and may contain errors or omissions
[2020-12-10 16:03] VITALS: BP 117/77; PULSE 95; RESP 18; O2SAT 98
== END | disposition home or self-care (01) ==
PROVIDERS: PCP Family Medicine; Visit Provider Clinical Nurse Specialist Family Health
DX: M51.16 Intervertebral disc disorders with radiculopathy, lumbar region (principal); Z45.1 Encounter for adjustment and management of infusion pump; I50.9 Heart failure, unspecified; I11.0 Hypertensive heart disease with heart failure; I25.10 Atherosclerotic heart disease of native coronary artery without angina pectoris; E78.5 Hyperlipidemia, unspecified; K21.9 Gastro-esophageal reflux disease without esophagitis; F32.9 Major depressive disorder, single episode, unspecified; J44.9 Chronic obstructive pulmonary disease, unspecified; Z79.899 Other long term (current) drug therapy; Z88.8 Allergy status to other drugs, medicaments and biological substances
CPT/HCPCS: 95991

== ENCOUNTER 2021-02-04 14:17 | Day surgery (SDC) | payer MEDICARE, SELFPAY ==
[2021-02-04 14:35] VITALS: BP 123/71; PULSE 87; RESP 20; TEMP 36.4; O2SAT 98; BMI 31.8
[2021-02-04 14:52] VITALS: BP 117/73; PULSE 84; RESP 18
[2021-02-04 14:54] VITALS: BP 117/77; PULSE 83; RESP 18; O2SAT 98
[2021-02-04 14:57] VITALS: BP 118/79; PULSE 85; RESP 18; O2SAT 98
--- NOTE | 2021-02-04 15:01 | P.PCN_ITS ---
- Procedure Date: 02/04/21 Time: 15:01 Anesthesiologist:: Daphney Phillips APRN Complications:: None Pre-procedure Diagnosis:: Degenerative disc disease lumbar spine lumbar radiculopathy and back pain Post-procedure Diagnosis:: Same Indications for Procedure:: Patient is a pleasant 55-year-old white male who presents today for intrathecal pain pump refill and reprogram he rates his pain a 6 out of 10. He is recently felt a pop in his lower back and states that he is having increased pain since then. We discussed getting a MRI however we will move forward with ordering steroids prior to this. We will see if this is beneficial for him. We will also increase his intrathecal therapy slightly. [facility] #[id number] reviewed and appropriate. He is currently on intrathecal morphine going at 0.85 mg every 2 hours. He denies side effects to the medication. Procedure Details:: Informed consent was obtained and the risk and benefits of the procedure were explained to the patient. The patient was taken to the procedure room where noninvasive monitoring was placed including noninvasive blood pressure cuff and pulse oximeter. Patient's pump was interrogated. The area over the pump was cleansed with chlorhexidine as a cleansing solution. In sterile fashion the pump was accessed with a 22-gauge needle. Approximately 3.5 mL's were removed of the pump solution and discarded appropriately. The pump was then refilled with 20 mL's of morphine 35 mg/mL. The needle was withdrawn and a bandage was placed over the puncture site. The infusion rate was reprogrammed to 0.875 mg every 2 hours. The patient tolerated the procedure well. Plan and Disposition:: We will give him prednisone 20 mg 1 p.o. twice daily for 5 days if he does not get any relief from this we will move forward with an updated MRI to help determine pathology of his new pain. He has been instructed to call the office if he has any issues. If he does not we will move forward with seeing him at his next intrathecal pain pump refill and reprogram. Dr. Schwartz has reviewed this note and agrees with this plan of care. This note was dictated using voice recognition software and may contain errors or omissions
== END 2021-02-04 14:58 | disposition home or self-care (01) ==
LOC: SC.PAINP 14:18
PROVIDERS: PCP Family Medicine; Visit Provider Clinical Nurse Specialist Family Health
DX: M51.16 Intervertebral disc disorders with radiculopathy, lumbar region (principal); Z45.1 Encounter for adjustment and management of infusion pump; I25.10 Atherosclerotic heart disease of native coronary artery without angina pectoris; J44.9 Chronic obstructive pulmonary disease, unspecified; I10 Essential (primary) hypertension; E78.5 Hyperlipidemia, unspecified; Z88.6 Allergy status to analgesic agent; K21.9 Gastro-esophageal reflux disease without esophagitis; F41.9 Anxiety disorder, unspecified; F32.9 Major depressive disorder, single episode, unspecified; Z79.899 Other long term (current) drug therapy
CPT/HCPCS: 62370

== ENCOUNTER → 2021-03-25 13:41 | Day surgery (SDC) | payer MEDICARE, SELFPAY ==
[2021-03-25 13:59] VITALS: BP 146/86; PULSE 91; RESP 18; TEMP 36.7; O2SAT 96; BMI 29.5
[2021-03-25 14:21] VITALS: BP 123/76; PULSE 87; RESP 18; O2SAT 95
[2021-03-25 14:25] VITALS: BP 123/76; PULSE 87; RESP 18; O2SAT 95
--- NOTE | 2021-03-25 14:33 | P.PCN_ITS ---
- Procedure Date: 03/25/21 Time: 14:34 Anesthesiologist:: Daphney Phillips APRN Complications:: None Pre-procedure Diagnosis:: Degenerative disc disease lumbar spine lumbar radiculopathy back pain, knee pain Post-procedure Diagnosis:: Same Indications for Procedure:: Patient is a pleasant 55-year-old white male who presents today for thecal pain pump refill and reprogram he would like an increase in his morphine infusion. He is currently on 0.875 mg every 2 hours. [facility] #[id number] reviewed and appropriate. Patient is having quite a bit of knee pain. Patient would like to move forward with bilateral intra-articular knee injections has had this in the past with extremely good relief. We will move forward with scheduling this for him today. Procedure Details:: Informed consent was obtained and the risk and benefits of the procedure were explained to the patient. The patient was taken to the procedure room where noninvasive monitoring was placed including noninvasive blood pressure cuff and pulse oximeter. Patient's pump was interrogated. The area over the pump was cleansed with chlorhexidine as a cleansing solution. In sterile fashion the pump was accessed with a 22-gauge needle. Approximately 3 mL's were removed of the pump solution and discarded appropriately. The pump was then refilled with 20 mL's of morphine 35 mg/mL. The needle was withdrawn and a bandage was placed over the puncture site. The infusion rate was reprogrammed to 1 mg every 2 hours. The patient tolerated the procedure well. Plan and Disposition:: We will see the patient back at his next appointment we will schedule him for bilateral intra-articular knee injections has been instructed to call the office if he has any issues prior to his next appointment. Dr. Schwartz has reviewed this note and agrees with this plan of care. This note was dictated using voice recognition software and may contain errors or omissions
== END ==
PROVIDERS: PCP Family Medicine; Visit Provider Clinical Nurse Specialist Family Health
DX: M51.16 Intervertebral disc disorders with radiculopathy, lumbar region (principal); Z45.1 Encounter for adjustment and management of infusion pump; I25.10 Atherosclerotic heart disease of native coronary artery without angina pectoris; E78.5 Hyperlipidemia, unspecified; I10 Essential (primary) hypertension; J44.9 Chronic obstructive pulmonary disease, unspecified; F41.9 Anxiety disorder, unspecified; F32.9 Major depressive disorder, single episode, unspecified
CPT/HCPCS: 62370

== ENCOUNTER 2021-04-12 10:29 | Day surgery (SDC) | payer MEDICARE, SELFPAY ==
[2021-04-12 10:49] VITALS: BP 134/80; PULSE 105; RESP 18; O2SAT 94; BMI 32.5
[2021-04-12 11:19] VITALS: BP 119/99; PULSE 94; RESP 18; O2SAT 99
[2021-04-12 11:22] VITALS: BP 119/75; PULSE 102; RESP 18; O2SAT 96
[2021-04-12 11:35] VITALS: BP 111/81; PULSE 85; RESP 18; O2SAT 94
--- NOTE | 2021-04-12 14:02 | P.PCN_ITS ---
- Procedure Date: 04/12/21 Time: 14:02 Anesthesiologist:: Ana Hylton MD Complications:: None Pre-procedure Diagnosis:: Bilateral knee osteoarthritis Post-procedure Diagnosis:: Same Indications for Procedure:: Patient is a very pleasant 55-year-old white male who presents today with bilateral knee pain related to bilateral knee osteoarthritis. He has previously undergone multiple injections to his knee joint with significant pain relief. He states the last 1 gave him greater than 80% pain relief for many months. He has trialed and failed conservative treatment including oral pain medications as well as physical therapy. Plan for today is for him to undergo repeat intra- articular knee injections today. Procedure Details:: Informed consent was obtained. Risks and benefits of the procedure were explained to the patient. Patient was taken back to the procedure room. Right and left knee was prepped using ChloraPrep. 5 gauge needle was used in a lateral to medial trajectory and the needle was advanced until the intra- articular knee joint was approached. An injectate solution of 10 mL of bupivacaine 0.25% and Depo-Medrol 40 mg was injected into the left knee. This was then repeated on the right side. Patient tolerated the procedure well with no complications. Plan and Disposition:: We will follow up with the patient in 2 weeks. Will reevaluate his pain symptoms at that time.
== END 2021-04-12 11:36 | disposition home or self-care (01) ==
LOC: SC.PAINP 10:30
PROVIDERS: PCP Family Medicine; Visit Provider Anesthesiology Pain Medicine
DX: M17.0 Bilateral primary osteoarthritis of knee (principal)
CPT/HCPCS: 20610; J1030

== ENCOUNTER 2021-05-20 15:12 | Day surgery (SDC) | payer MEDICARE, SELFPAY ==
[2021-05-20 15:23] VITALS: BP 136/79; PULSE 92; RESP 18; TEMP 36.6; O2SAT 98; BMI 31.8
[2021-05-20 15:39] VITALS: BP 118/76; PULSE 94; RESP 18; O2SAT 95
[2021-05-20 15:41] VITALS: BP 118/76; PULSE 90; RESP 18; O2SAT 95
--- NOTE | 2021-05-20 15:45 | P.PCN_ITS ---
- Procedure Date: 05/20/21 Time: 15:45 Anesthesiologist:: Gianna Gustafson APRN Complications:: None Pre-procedure Diagnosis:: Generative disc disease lumbar spine with lumbar radiculopathy symptoms, sacroiliitis bilateral, bilateral knee osteoarthritis Post-procedure Diagnosis:: Same Indications for Procedure:: Patient is a pleasant 55-year-old white male who presents today for intrathecal pain pump refill and reprogram. He is being treated for degenerative disc disease lumbar spine with lumbar radiculopathy symptoms. Patient rates his pain a 5 out of 10 today. He is having bilateral low back pain with radicular symptoms into his bilateral hip and groin. He is having difficulty standing and walking due to the pain. He does not want a change in his intrathecal therapy, however, says that he would like to undergo bilateral SI joint injections he has had these in the past and has done excellent with the injections getting up to 80 to 90% relief for greater than 6 weeks. He is tender to palpation to his bilateral SI joints. He also has positive Ricco's, compression, distraction test today. His [facility] #[id number] has been reviewed and is appropriate. Morphine equivalent is 0. He is continue with home stretching. Physical exam General: Alert and oriented x3, no acute distress, pleasant and cooperative, [on room air] Lungs: Respirations even and unlabored, symmetrical chest expansion Eyes: PERRL Musculoskeletal: Flexion and extension of lumbar spine somewhat guarded secondary to pain, deep tendon reflexes normal, strength in upper and lower extremities [5/5], [abnormal gait noted] Neurological: Speech clear, administrative assistant equal, no gross sensory deficit Procedure Details:: Informed consent was obtained and the risk and benefits of the procedure were explained to the patient. The patient was taken to the procedure room where noninvasive monitoring was placed including noninvasive blood pressure cuff and pulse oximeter. Patient's pump was interrogated. The area over the pump was cleansed with chlorhexidine as a cleansing solution. In sterile fashion the pump was accessed with a 22-gauge needle. Approximately 0.5 mls of the pump solution was removed and discarded appropriately. The pump was then refilled with 20 mL's of morphine 35 mg/mL. The needle was withdrawn and a bandage was placed over the puncture site. The infusion rate was reprogrammed at morphine 12 mg/day. The patient tolerated well with no complication. Plan and Disposition:: We will schedule the patient for bilateral SI joint injections. He does have a positive Ricco's test today as well as positive compression and distraction test. He is tender to palpation to his bilateral SI joints. We will see him back after his injections for reevaluation of symptoms. Patient has been instructed to contact the clinic with any concerns before the next appointment. Dr. Schwartz has reviewed this note and agrees with this plan of care. This note was dictated using voice recognition software and make contain errors or omissions.
[2021-05-20 15:49] VITALS: BP 135/79; PULSE 92; RESP 18; O2SAT 98
== END 2021-05-20 15:51 | disposition home or self-care (01) ==
LOC: SC.PAINP 15:13
PROVIDERS: PCP Family Medicine; Visit Provider Clinical Nurse Specialist Family Health
DX: M51.16 Intervertebral disc disorders with radiculopathy, lumbar region (principal); M46.1 Sacroiliitis, not elsewhere classified; M17.0 Bilateral primary osteoarthritis of knee; Z45.1 Encounter for adjustment and management of infusion pump
CPT/HCPCS: 62370

== ENCOUNTER 2021-05-27 14:58 | Day surgery (SDC) | payer MEDICARE, SELFPAY ==
[2021-05-27 15:11] VITALS: BP 121/70; PULSE 94; RESP 18; TEMP 36.7; O2SAT 98; BMI 31.8
[2021-05-27 15:57] VITALS: BP 126/81; PULSE 89; RESP 18; O2SAT 95
[2021-05-27 15:58] VITALS: BP 128/86; PULSE 91; RESP 18; O2SAT 95
--- NOTE | 2021-05-27 16:05 | P.PCN_ITS ---
- Procedure Date: 05/27/21 Time: 16:05 Anesthesiologist:: Gianna Gustafson APRN Complications:: None Pre-procedure Diagnosis:: Degenerative disc disease lumbar spine with lumbar radiculopathy symptoms, bilateral sacroiliitis Post-procedure Diagnosis:: Same Indications for Procedure:: Patient is a 55-year-old white male who presents today for bilateral SI joint injections. He has pain in bilateral low back with radiation into bilateral buttock and groin. He rates his pain a 7 out of 10. We will perform bilateral SI joint injections today to see if he gets relief. He has positive Ricco's, compression, distraction test. Physical exam General: Alert and oriented x3, no acute distress, pleasant and cooperative, [on room air] Lungs: Respirations even and unlabored, symmetrical chest expansion Eyes: PERRL Musculoskeletal: Flexion and extension of lumbar [spine] somewhat guarded secondary to pain, strength in upper and lower extremities [5/5], [antalgic gait noted] positive Ricco's test, positive distraction test, positive compression test Neurological: Speech clear, [special delivery worker equal], no gross sensory deficit Procedure Details:: Informed consent was obtained and the risk and benefits of the procedure were explained to the patient. The patient was taken to the procedure room and noninvasive monitors were placed including noninvasive blood pressure cuff and pulse oximeter. The patient was placed prone on the procedure table. The left side joint was cleansed using chlorhexidine as a cleansing solution. C-arm fluoroscopy was used to view the left SI joint. The skin and subcutaneous tissue were anesthetized using lidocaine 1.5% and 25-gauge needle. After this a 22-gauge spinal needle was inserted under fluoroscopic guidance into the inferior aspect of the left SI joint. Omnipaque dye was injected and good spread was seen throughout the joint. After this approximately 5 mils of bupivacaine 0.25% and Depo-Medrol 40 mg were incrementally injected into the sacroiliac joint. Then proceeded to the right SI joint. The skin and subcutaneous tissue were anesthetized using lidocaine 1.5% and 25-gauge needle. After this a 22-gauge spinal needle was inserted under fluoroscopic guidance into the inferior aspect of the right SI joint. Omnipaque dye was injected and good spread was seen throughout the right SI joint. After this approximately 5 mils of bupivacaine 0.25% and Depo-Medrol 40 mg were incrementally injected into the right sacroiliac joint The patient tolerated the procedure well with no complications. Plan and Disposition:: We will see the patient back in the clinic in 2 weeks for reevaluation of symptoms. Patient has been instructed to contact the clinic with any concerns before the next appointment. Dr. Schwartz has reviewed this note and agrees with this plan of care. This note was dictated using voice recognition software and make contain errors or omissions.
[2021-05-27 16:10] VITALS: BP 126/80; PULSE 80; RESP 18; O2SAT 98
== END 2021-05-27 16:10 | disposition home or self-care (01) ==
LOC: SC.PAINP 14:59
PROVIDERS: PCP Family Medicine; Visit Provider Clinical Nurse Specialist Family Health
DX: M51.16 Intervertebral disc disorders with radiculopathy, lumbar region (principal); M46.1 Sacroiliitis, not elsewhere classified
CPT/HCPCS: 27096; G0260; J1030; Q9966

== ENCOUNTER 2021-07-05 12:43 | Day surgery (SDC) | payer MEDICARE, SELFPAY ==
[2021-07-05 12:57] VITALS: BP 117/69; PULSE 86; RESP 20; TEMP 37.1; O2SAT 94; BMI 32.5
[2021-07-05 13:07] VITALS: BP 125/72; PULSE 84; RESP 18; O2SAT 95
[2021-07-05 13:17] VITALS: BP 130/76; PULSE 77; RESP 18; O2SAT 95
[2021-07-05 13:36] VITALS: BP 105/66; PULSE 71; RESP 18; O2SAT 94
--- NOTE | 2021-07-05 13:59 | HMH.PMPROC ---
- Procedure Date: 07/05/21 Time: 13:59 Anesthesiologist:: Silvestre Schwartz MD Complications:: None Pre-procedure Diagnosis:: Degenerative disc disease of lumbar spine with lumbar radiculopathy symptoms Post-procedure Diagnosis:: Same Indications for Procedure:: Patient is a pleasant 55-year-old white male who we have been treating for low back pain with lumbar radiculopathy symptoms and sacroiliitis. He is doing very well after his SI joint injections. He presents for refill of his intrathecal morphine pain pump today. Overall he is doing well with his pump. He has no side effects with the medication. [facility] and drug screen are all appropriate. We will refill his pump with intrathecal morphine and keep him at 12 mg/day. Procedure Details:: Informed consent was obtained and the risks and benefits of the procedure was explained to the patient. The patient was taken to the procedure room. The pump was interrogated. The area over the pump was prepped using ChloraPrep. The pump was accessed with a 22-gauge needle. Approximately 4 mL's of the intrathecal solution was withdrawn and discarded. The pump was then refilled with 20 mL's of intrathecal morphine 35 mg/mL. The pump was interrogated and the infusion was continued at 12 mg/day. Patient is on periodic flow so his PTC is disabled. The patient tolerated the procedure well with no complication. Plan and Disposition:: We will follow-up with him at his next pump refill. He has any problems or questions he is to call us back in the pain clinic.
== END 2021-07-05 13:37 | disposition home or self-care (01) ==
LOC: SC.PAINP 12:45
PROVIDERS: PCP Family Medicine; Visit Provider Anesthesiology
DX: M51.16 Intervertebral disc disorders with radiculopathy, lumbar region (principal); Z45.1 Encounter for adjustment and management of infusion pump; E78.5 Hyperlipidemia, unspecified; I11.0 Hypertensive heart disease with heart failure; K21.9 Gastro-esophageal reflux disease without esophagitis; I50.9 Heart failure, unspecified
CPT/HCPCS: 95991

== ENCOUNTER 2021-08-12 13:06 | Day surgery (SDC) | payer MEDICARE, SELFPAY ==
[2021-08-12 13:09] VITALS: BP 120/83; PULSE 92; RESP 18; TEMP 36.8; O2SAT 92; BMI 44.8
--- NOTE | 2021-08-12 13:09 | HMH.PMPROC ---
- Procedure Date: 08/12/21 Time: 13:09 Anesthesiologist:: Gianna Gustafson APRN Complications:: None Pre-procedure Diagnosis:: Degenerative disc disease lumbar spine with lumbar radiculopathy symptoms, chronic back pain Post-procedure Diagnosis:: Same Indications for Procedure:: Patient is a 55-year-old white male who presents today for intrathecal pain pump refill and reprogram. He has been treated for degenerative disc disease lumbar spine with lumbar radiculopathy symptoms. [facility] #[id number] has been reviewed and is appropriate. Drug screens are appropriate. Morphine equivalent is 0. She is currently on periodic flow at morphine 1 mg/day with a daily dose of 12 mg/day. He would like an increase today. He does rate his pain a 7 out of 10. He denies any side effects to the medication. The patient is having worsening low back pain with radiation into bilateral lower extremities. He does say that the pump gives him up to 60% relief, however. Physical exam General: Alert and oriented x3, no acute distress, pleasant and cooperative Lungs: Respirations even and unlabored, symmetrical chest expansion Eyes: PERRL Musculoskeletal: Flexion and extension of lumbar [spine] somewhat guarded secondary to pain, [antalgic gait noted] Neurological: Speech clear, no gross sensory deficit Procedure Details:: Informed consent was obtained and the risk and benefits of the procedure were explained to the patient. The patient was taken to the procedure room where noninvasive monitoring was placed including noninvasive blood pressure cuff and pulse oximeter. Patient's pump was interrogated. The area over the pump was cleansed with chlorhexidine as a cleansing solution. In sterile fashion the pump was accessed with a 22-gauge needle. Approximately 7 mls of the pump solution was removed and discarded appropriately. The pump was then refilled with 20 mL's of morphine 35 mg/mL. The needle was withdrawn and a bandage was placed over the puncture site. The infusion rate was reprogrammed at morphine at 13 mg/day, periodic flow at 1.08 mg every 2 hours.. The patient tolerated well with no complication. Plan and Disposition:: We will see the patient back in the clinic at the next intrathecal refill. Patient has been instructed to contact the clinic with any concerns before the next appointment. Dr. Schwartz has reviewed this note and agrees with this plan of care. This note was dictated using voice recognition software and make contain errors or omissions.
[2021-08-12 13:32] VITALS: BP 118/77; PULSE 84; RESP 18; O2SAT 96
[2021-08-12 13:33] VITALS: PULSE 93; RESP 18; O2SAT 96
[2021-08-12 13:41] VITALS: BP 123/75; PULSE 92; TEMP 36.8; O2SAT 95
== END 2021-08-12 13:40 | disposition home or self-care (01) ==
LOC: SC.PAINP 13:07
PROVIDERS: PCP Family Medicine; Visit Provider Clinical Nurse Specialist Family Health
DX: M51.16 Intervertebral disc disorders with radiculopathy, lumbar region (principal); G89.29 Other chronic pain; Z45.1 Encounter for adjustment and management of infusion pump
CPT/HCPCS: 62370

== ENCOUNTER 2021-09-23 14:47 | Day surgery (SDC) | payer MEDICARE, SELFPAY ==
[2021-09-23 14:50] VITALS: BP 145/83; PULSE 98; RESP 18; TEMP 36.6; O2SAT 95; BMI 32.5
--- NOTE | 2021-09-23 15:10 | HMH.PMPROC ---
- Procedure Date: 09/23/21 Time: 15:11 Anesthesiologist:: Gianna Gustafson APRN Complications:: None Pre-procedure Diagnosis:: Degenerative disc disease lumbar spine with lumbar radiculopathy symptoms Post-procedure Diagnosis:: Same Indications for Procedure:: Patient is a pleasant 56-year-old white male who presents today for intrathecal pain pump [refill] [and reprogram]. The patient is being treated for continued low back pain. He says he is having worsening low back pain at this time with radicular pain into his lower extremities. The pain in his lower extremities has not changed. He says it is the low back pain that has worsened. Injective therapy has not been beneficial for the pain in the past. He has tried home stretching and does take Tylenol which does not give him any long-term relief.. Patient rates pain a 7 out of 10. Drug screen is appropriate. Cyril [ ] has been reviewed and is appropriate. He is currently on morphine at 13 mg/day and is asking for an increase. He is on periodic flow at 1.08 mg every 2 hours. We discussed today the option of changing to Dilaudid. He is on a concentration of morphine at 35 mg per mill. We will increase him today. If he continues to have significant pain, changing him to Dilaudid may be a better option for him rather than continuing to increase his morphine dose. He does not want any imaging of his lumbar spine at this time. Physical exam General: Alert and oriented x3, no acute distress, pleasant and cooperative, [on room air] Lungs: Respirations even and unlabored, symmetrical chest expansion Eyes: PERRL Musculoskeletal: Flexion and extension of lumbar [spine] somewhat guarded secondary to pain, [antalgic gait noted] Neurological: Speech clear, no gross sensory deficit Procedure Details:: Informed consent was obtained and the risk and benefits of the procedure were explained to the patient. The patient was taken to the procedure room where noninvasive monitoring was placed including noninvasive blood pressure cuff and pulse oximeter. Patient's pump was interrogated. The area over the pump was cleansed with chlorhexidine as a cleansing solution. In sterile fashion the pump was accessed with a 22-gauge needle. Approximately 6 mls of the pump solution was removed and discarded appropriately. The pump was then refilled with 20 mL's of morphine 35 mg per mill. The needle was withdrawn and a bandage was placed over the puncture site. The infusion rate was reprogrammed at morphine 13.65 mg/day, periodic flow at 1.16 mg every 2 hours. The patient tolerated well with no complication. Plan and Disposition:: We will see if the patient gets relief with the change in dosing. He may benefit from change of medication to Dilaudid. He is currently on a concentration of morphine 5 mg per male at a dose of 13.65 mg/day. He has been advised we will not be able to continue to increase in this dosing due to high risk of granuloma. He is in agreement he would like to change out to Dilaudid if he does not get relief with his increase today. He has not had any discrepancies in his intrathecal therapy to date. Patient has been instructed to contact the clinic with any concerns before the next appointment. Dr. Schwartz has reviewed this note and agrees with this plan of care. This note was dictated using voice recognition software and make contain errors or omissions.
[2021-09-23 15:21] VITALS: BP 128/79; PULSE 97; RESP 18; O2SAT 96
[2021-09-23 15:22] VITALS: PULSE 95; RESP 18; O2SAT 96
[2021-09-23 15:30] VITALS: BP 133/76; PULSE 87; RESP 20; O2SAT 100
[2021-09-23 19:24] LABS: Amphetamine/Metha Screen,Urine Negative ng/ml (<1000)
[2021-09-23 19:25] LABS: Barbiturates Screen,Urine Negative ng/ml (<200)
[2021-09-23 19:26] LABS: Benzodiazepines Screen,Urine Negative ng/ml (<200); Cannabinoid Screen,Urine Negative ng/ml (<50)
[2021-09-23 19:27] LABS: Cocaine Screen,Urine Negative ng/ml (<300)
[2021-09-23 19:28] LABS: Methadone Screen,Urine Negative ng/ml (<300); Opiate Screen,Urine Positive ng/ml (<300)
[2021-09-23 19:29] LABS: Phencyclidine Screen,Urine Negative ng/ml (<25)
[2021-10-03 18:09] LABS: Codeine Negative (Cutoff=100); Hydrocodone Negative (Cutoff=100); Hydromorphone Negative (Cutoff=100); Morphine Positive (.); Opiates Positive (.)
== END 2021-09-23 15:30 | disposition home or self-care (01) ==
PROVIDERS: PCP Family Medicine; Visit Provider Clinical Nurse Specialist Family Health
DX: M51.16 Intervertebral disc disorders with radiculopathy, lumbar region (principal); Z45.1 Encounter for adjustment and management of infusion pump; Z79.891 Long term (current) use of opiate analgesic
CPT/HCPCS: 62370; 80305; 80361; 80365; G0480

== ENCOUNTER 2021-11-04 12:45 | Day surgery (SDC) | payer MEDICARE, SELFPAY ==
--- NOTE | 2021-11-04 13:23 | HMH.PMPROC ---
- Procedure Date: 11/04/21 Time: 13:23 Anesthesiologist:: IRMA Castro Complications:: None Pre-procedure Diagnosis:: Degenerative disease of lumbar spine with no radiculopathy symptoms Post-procedure Diagnosis:: Same Indications for Procedure:: Patient is a pleasant 56-year-old male who presents today for intrathecal pain pump [refill] [and reprogram]. The patient is being treated for degenerative disc disease of lumbar spine with lumbar radiculopathy symptoms. Patient denies any side effect from this medication. Patient denies any translocation, pain. Patient rates pain a [7] out of 10. Drug screen is appropriate. Cyril [id number] has been reviewed and is appropriate. ORT score is low risk Physical exam General: Alert and oriented x3, no acute distress, pleasant and cooperative, [on room air] Lungs: Respirations even and unlabored, symmetrical chest expansion Eyes: PERRL Musculoskeletal: Flexion and extension of lumbar [spine] somewhat guarded secondary to pain, [antalgic gait noted] Neurological: Speech clear, no gross sensory deficit Procedure Details:: Informed consent was obtained and the risk and benefits of the procedure were explained to the patient. The patient was taken to the procedure room where noninvasive monitoring was placed including noninvasive blood pressure cuff and pulse oximeter. Patient's pump was interrogated. The area over the pump was cleansed with chlorhexidine as a cleansing solution. In sterile fashion the pump was accessed with a 22-gauge needle. Approximately 4.5 mls of the pump solution was removed and discarded appropriately. The pump was then refilled with 20 mL's of morphine 35 mg/mL. The needle was withdrawn and a bandage was placed over the puncture site. The infusion rate was reprogrammed and continued at periodic flow of 1.13 mg every 2 hours with a total dose of 13.56 mg/day. The patient tolerated well with no complication. Plan and Disposition:: We will see the patient back in the clinic at the next intrathecal refill. Patient has been instructed to contact the clinic with any concerns before the next appointment. Dr. Schwartz has reviewed this note and agrees with this plan of care. This note was dictated using voice recognition software and make contain errors or omissions.
[2021-11-04 13:34] VITALS: BP 138/80; PULSE 77; TEMP 36.8; O2SAT 92; BMI 32.5
[2021-11-04 13:42] VITALS: BP 128/81; PULSE 88; RESP 18; O2SAT 96
[2021-11-04 13:46] VITALS: PULSE 81; RESP 18; O2SAT 96
[2021-11-04 13:55] VITALS: BP 124/72; PULSE 71; RESP 20; O2SAT 93
--- NOTE | 2021-11-05 07:52 | HMH.PMPROC ---
- Procedure Date: 11/04/21 Time: 13:00 Anesthesiologist:: Gianna Gustafson APRN Complications:: None Pre-procedure Diagnosis:: Degenerative Disc Disease lumbar spine with lumbar radiculopathy Post-procedure Diagnosis:: same Indications for Procedure:: -Patient is a pleasant 56-year-old male who presents today for intrathecal pain pump [refill] [and reprogram]. The patient is being treated for degenerative disc disease of lumbar spine with lumbar radiculopathy symptoms. Patient denies any side effect from this medication. Patient denies any translocation, pain. Patient rates pain a [7] out of 10. Drug screen is appropriate. Cyril [id number] has been reviewed and is appropriate. ORT score is low risk Physical exam General: Alert and oriented x3, no acute distress, pleasant and cooperative, [on room air] Lungs: Respirations even and unlabored, symmetrical chest expansion Eyes: PERRL Musculoskeletal: Flexion and extension of lumbar [spine] somewhat guarded secondary to pain, [antalgic gait noted] Neurological: Speech clear, no gross sensory deficit Procedure Details:: Procedure Details:: Informed consent was obtained and the risk and benefits of the procedure were explained to the patient. The patient was taken to the procedure room where noninvasive monitoring was placed including noninvasive blood pressure cuff and pulse oximeter. Patient's pump was interrogated. The area over the pump was cleansed with chlorhexidine as a cleansing solution. In sterile fashion the pump was accessed with a 22-gauge needle. Approximately 4.5 mls of the pump solution was removed and discarded appropriately. The pump was then refilled with 20 mL's of morphine 35 mg/mL. The needle was withdrawn and a bandage was placed over the puncture site. The infusion rate was reprogrammed and continued at periodic flow of 1.13 mg every 2 hours with a total dose of 13.56 mg/day. The patient tolerated well with no complication. Plan and Disposition:: We will see the patient back in the clinic at the next intrathecal refill. Patient has been instructed to contact the clinic with any concerns before the next appointment. Dr. Schwartz has reviewed this note and agrees with this plan of care. This note was dictated using voice recognition software and make contain errors or omissions.
== END 2021-11-04 13:57 | disposition home or self-care (01) ==
LOC: SC.PAINP 12:46
PROVIDERS: PCP Family Medicine; Visit Provider Clinical Nurse Specialist Family Health
DX: M51.36 Other intervertebral disc degeneration, lumbar region (principal); Z45.1 Encounter for adjustment and management of infusion pump; E78.5 Hyperlipidemia, unspecified; I11.0 Hypertensive heart disease with heart failure; I50.9 Heart failure, unspecified; K21.9 Gastro-esophageal reflux disease without esophagitis; I25.10 Atherosclerotic heart disease of native coronary artery without angina pectoris; J44.9 Chronic obstructive pulmonary disease, unspecified; M19.90 Unspecified osteoarthritis, unspecified site; F41.9 Anxiety disorder, unspecified; F32.A Depression, unspecified; Z72.0 Tobacco use
CPT/HCPCS: 95991

== ENCOUNTER 2021-12-09 13:07 | Day surgery (SDC) | payer MEDICARE, SELFPAY ==
[2021-12-09 13:13] VITALS: BP 143/78; PULSE 109; RESP 20; TEMP 37.1; O2SAT 96; BMI 33.2
[2021-12-09 13:26] VITALS: BP 140/94; PULSE 55; RESP 20; O2SAT 98
[2021-12-09 13:28] VITALS: BP 142/90; PULSE 98; RESP 18; O2SAT 96
--- NOTE | 2021-12-09 13:28 | P.PCN_ITS ---
- Procedure Date: 12/09/21 Time: 13:28 Anesthesiologist:: Gianna Gustafson APRN Complications:: None Pre-procedure Diagnosis:: Degenerative disc disease lumbar spine with lumbar radiculopathy symptoms Post-procedure Diagnosis:: Same Indications for Procedure:: Patient is a 56-year-old male who presents today for intrathecal pain pump refill and reprogram. Patient is currently being treated for degenerative disease of the lumbar spine with lumbar radiculopathy symptoms. Patient is currently being managed with morphine 35 mg/mL at a periodic flow rate of 1.13 mg every 2 hours total dose of 13.56 mg/day. Side effects from this medication. Patient denies any change in location type of pain. Patient rates his pain today as 7 out of 10. Patient is wanting to change his medication from morphine to Dilaudid and he is also complaining of worsening joint pains. [facility] #[id number] with an active morphine equivalent of 0. Procedure Details:: Informed consent was obtained and the risk and benefits of the procedure were explained to the patient. The patient was taken to the procedure room where noninvasive monitoring was placed including noninvasive blood pressure cuff and pulse oximeter. Patient's pump was interrogated. The area over the pump was cleansed with chlorhexidine as a cleansing solution. In sterile fashion the pump was accessed with a 22-gauge needle. Approximately 7 mls of the pump solution was removed and discarded appropriately. The pump was then refilled with 20 mL's of morphine 35 mg/mL. The needle was withdrawn and a bandage was placed over the puncture site. The infusion rate was continued 1.13 mg every 2 hours with a total dose of 13.56 mg/day. The patient tolerated well with no complication. Plan and Disposition:: I will start the patient on compounding cream for his joint pains. Patient is wanting to change his medication to Dilaudid from Morphine. He is currently on Morphine 35mg/mL at a periodic flow rate of 1.13mg q2h with a total daily dose of 13.56mg/day. I have discussed the patient with Dr. Schwartz and he would like to start the patient on Dilaudid 10 mg/mL at a rate of 1.5 mg/day. Patient will see Dr. Schwartz at his next pain pump refill for a double cap Refill. Dr. Schwartz has reviewed this note and agrees with this plan of care. This note was dictated using voice recognition software and make contain errors or omissions.
[2021-12-09 13:35] VITALS: BP 159/79; PULSE 102; RESP 20; O2SAT 95
[2021-12-09 16:15] LABS: Benzodiazepines Screen,Urine Negative ng/ml (<200)
[2021-12-09 16:16] LABS: Amphetamine/Metha Screen,Urine Negative ng/ml (<1000)
[2021-12-09 16:17] LABS: Barbiturates Screen,Urine Negative ng/ml (<200); Cannabinoid Screen,Urine Negative ng/ml (<50)
[2021-12-09 16:18] LABS: Cocaine Screen,Urine Negative ng/ml (<300); Methadone Screen,Urine Negative ng/ml (<300)
[2021-12-09 16:19] LABS: Opiate Screen,Urine Positive ng/ml (<300)
[2021-12-09 16:20] LABS: Phencyclidine Screen,Urine Negative ng/ml (<25)
[2021-12-22 13:19] LABS: Codeine Negative (Cutoff=100); Hydrocodone Negative (Cutoff=100); Hydromorphone Negative (Cutoff=100); Morphine Positive (.); Opiates Positive (.)
== END 2021-12-09 13:35 | disposition home or self-care (01) ==
LOC: SC.PAINP 13:08
PROVIDERS: PCP Family Medicine; Visit Provider Clinical Nurse Specialist Family Health
DX: M51.16 Intervertebral disc disorders with radiculopathy, lumbar region (principal); Z45.1 Encounter for adjustment and management of infusion pump
CPT/HCPCS: 80305; 80361; 80365; 95991; G0480

== ENCOUNTER 2021-12-20 11:35 | Day surgery (SDC) | payer MEDICARE, SELFPAY ==
[2021-12-20 11:45] VITALS: BP 134/90; PULSE 90; RESP 20; TEMP 36.4; O2SAT 95; BMI 33.2
[2021-12-20 11:46] VITALS: BP 131/89; PULSE 91; RESP 20; O2SAT 93
[2021-12-20 11:50] VITALS: BP 130/88; PULSE 91; RESP 20; O2SAT 93
[2021-12-20 12:04] VITALS: BP 130/71; PULSE 80; RESP 20; O2SAT 95
--- NOTE | 2021-12-20 12:08 | HMH.PMPROC ---
- Procedure Date: 12/20/21 Time: 12:08 Anesthesiologist:: Silvestre Schwartz MD Complications:: None Pre-procedure Diagnosis:: Degenerative disc disease of lumbar spine with lumbar radiculopathy symptoms Post-procedure Diagnosis:: Same Indications for Procedure:: Patient is a pleasant 56-year-old white male who we are treating for low back pain with lumbar radiculopathy symptoms. He currently has an intrathecal morphine pain pump going at 13.5 mg/day. He has good pain relief however has some side effects and is both tolerates this medication. We will rotate opioids and change him to intrathecal Dilaudid today and start him at 1.5 mg/day. Cyril and drug screen are all appropriate. He does have an antalgic gait. Motor strength of the lower extremities is 5/5. There is no gross sensory deficit. Procedure Details:: Informed consent was obtained and the risks and benefits of the procedure was explained to the patient. The patient was taken to the procedure room. The pump was interrogated. The area over the pump was prepped using ChloraPrep. The pump was accessed with a 22-gauge needle. Approximately 16 mL's of the intrathecal solution was withdrawn and discarded. The pump was then refilled with 20 mL's of intrathecal Dilaudid 10 mg per ml. The pump was interrogated and the infusion was started at 1.5 mg/day with a bridge bolus of 22 hours and 10 minutes. The patient tolerated the procedure well with no complication. Plan and Disposition:: This patient will have a 22-hour bridge bolus. Since we are rotating opioids he will go through a period of temporary withdrawal. We'll follow-up with him on Thursday to make adjustments to his intrathecal infusion. Also in the meantime I'll give him Valium 5 mg twice a day for 5 days to help with withdrawal symptoms during the transition.
== END 2021-12-20 12:05 | disposition home or self-care (01) ==
LOC: SC.PAINP 11:36
PROVIDERS: PCP Family Medicine; Visit Provider Anesthesiology
DX: M51.16 Intervertebral disc disorders with radiculopathy, lumbar region (principal); Z45.1 Encounter for adjustment and management of infusion pump; I50.9 Heart failure, unspecified; E78.5 Hyperlipidemia, unspecified; I10 Essential (primary) hypertension; K21.9 Gastro-esophageal reflux disease without esophagitis
CPT/HCPCS: 62370

== ENCOUNTER → 2021-12-26 12:33 | Outpatient (POV) | payer MEDICARE, SELFPAY ==
--- NOTE | 2021-12-26 13:02 | HMH.PAINSOAP ---
[facility] Pain Management SOAP Note Subjective:: Patient is a very pleasant 56-year-old white male who presents today for intrathecal pump adjustment. He is currently being treated for degenerative disease of the lumbar spine lumbar radiculopathy. He was previously on intrathecal morphine at 13.5 mg/day but began experiencing side effects and we switched him to intrathecal Dilaudid and started him at 1.5 mg/day. He states that he has been pretty sick in the past couple days after undergoing this medication change. He notes nausea vomiting as well as diarrhea since the medication change and states that he has not been feeling well overall. He is continuing to take the Valium. He is requesting an increase in his dose settings today. His rates his pain today as a 7 out of 10. [facility] History Medical History: Reports:: Congestive Heart Failure, Coronary Artery Disease, Gastroesophageal Reflux Disease(GERD), Hyperlipidemia, Hypertension Denies:: Cancer, Diabetes Mellitus Type 1, Diabetes Mellitus Type 2, Internal Pacemaker, MRSA, Seizures *Have you ever received a pneumonia vaccine?: No *Have you received a flu vaccine this season?: No Other Medical History: Reports: Arthritis, Liver Disease. Denies: Blood Transfusion Reaction Laterality Cases: Bilateral: Arthroscopy Shoulder Other Surgeries: Yes: Cholecystectomy, Other (pain pump implant). No: Pacemaker Amputation: No Fractures: No - *Social History Smoking Status: Current some day smoker Tobacco Type: smokeless tobacco # Packs/Day (cigarettes): 0 #Yrs smoked (if former smoker): 20 Alcohol Intake: never Substance Use Type: denies use *Occupational Status:: disabled Housing: house Household Members: spouse Family Hx:: Other
--- NOTE | 2021-12-26 13:07 | HMH.PMPROC ---
- Procedure Date: 12/26/21 Time: 13:07 Anesthesiologist:: Ana Hylton MD Complications:: None Pre-procedure Diagnosis:: Degenerative disc disease of lumbar spine with lumbar radiculopathy Post-procedure Diagnosis:: Same Indications for Procedure:: Patient is a very pleasant 56-year-old white male who presents today for intrathecal pump adjustment. He is currently being treated for degenerative disease of the lumbar spine lumbar radiculopathy. He was previously on intrathecal morphine at 13.5 mg/day but began experiencing side effects and we switched him to intrathecal Dilaudid and started him at 1.5 mg/day. He states that he has been pretty sick in the past couple days after undergoing this medication change. He notes nausea vomiting as well as diarrhea since the medication change and states that he has not been feeling well overall. He is continuing to take the Valium. He is requesting an increase in his dose settings today. His rates his pain today as a 7 out of 10. Procedure Details:: Analysis and reprogramming of intrathecal morphine pain pump Informed consent was obtained. The risk and benefits of the procedure were explained to the patient. Patient was taken to the procedure room. The pump was interrogated. Intrathecal Dilaudid infusion was increased by [20]% to [1.95] mg/day. Patient tolerated the procedure well with no complications. Plan and Disposition:: Follow-up with this patient in a week. We will assess his chronic pain symptoms and make further pump adjustments if indicated. [facility] #[id number] was reviewed and appropriate. I discussed with the patient to continue Valium and will prescribe oral Zofran as well to help with his nausea symptoms.
[2021-12-26 13:19] VITALS: BP 148/78; PULSE 109; RESP 18; O2SAT 96; BMI 33.2
== END ==
PROVIDERS: Visit Provider Anesthesiology Pain Medicine
DX: M51.16 Intervertebral disc disorders with radiculopathy, lumbar region (principal); Z45.1 Encounter for adjustment and management of infusion pump
CPT/HCPCS: 62368

== ENCOUNTER → 2022-01-09 10:49 | Outpatient (POV) | payer MEDICARE, SELFPAY ==
[2022-01-09 11:20] VITALS: BP 143/78; PULSE 92; RESP 20; TEMP 36.4; O2SAT 95; BMI 33.9
--- NOTE | 2022-01-09 15:50 | HMH.PMPROC ---
- Procedure Date: 01/09/22 Time: 15:50 Anesthesiologist:: IRMA Castro Complications:: None Pre-procedure Diagnosis:: Degenerative disc disease of the lumbar spine with lumbar radiculopathy symptoms Post-procedure Diagnosis:: Same Indications for Procedure:: Patient is a pleasant 56-year-old male who presents today for follow-up and pump adjustment. We recently changed the patient from morphine to Dilaudid. Patient is currently being managed with Dilaudid 1.95 mg/day. Patient denies any side effects from this medication. Patient denies any change to the location and type of pain. Patient rates his pain today as 5 out of 10. Procedure Details:: Informed consent was obtained and the risk and benefits of the procedure were explained to the patient. Patient was taken to the procedure room where noninvasive monitoring was placed including noninvasive blood pressure cuff and pulse oximeter. Patient's pump was interrogated and was reprogrammed and increased to Dilaudid 2.15 mg/day. The patient tolerated the procedure well with no complications. Plan and Disposition:: We will see the patient back in the clinic at the next intrathecal refill. Patient has been instructed to contact the clinic with any concerns before the next appointment. Dr. Schwartz has reviewed this note and agrees with this plan of care. This note was dictated using voice recognition software and make contain errors or omissions.
== END ==
PROVIDERS: Visit Provider Student in an Organized Health Care Education/Training Program
DX: M51.16 Intervertebral disc disorders with radiculopathy, lumbar region (principal); Z45.1 Encounter for adjustment and management of infusion pump
CPT/HCPCS: 62368

== ENCOUNTER 2022-03-10 12:53 | Day surgery (SDC) | payer MEDICARE, SELFPAY ==
[2022-03-10 13:16] VITALS: BP 108/75; PULSE 81; RESP 20; TEMP 37.2; O2SAT 95; BMI 33.9
[2022-03-10 13:28] VITALS: BP 122/81; PULSE 85; RESP 18; O2SAT 94
[2022-03-10 13:29] VITALS: BP 136/73; PULSE 82; RESP 18; O2SAT 94
--- NOTE | 2022-03-10 13:36 | HMH.PMPROC ---
- Procedure Date: 03/10/22 Time: 13:36 Anesthesiologist:: IRMA Castro Complications:: None Pre-procedure Diagnosis:: Degenerative disc disease of lumbar spine with lumbar radiculopathy symptoms Post-procedure Diagnosis:: Same Indications for Procedure:: Patient is a pleasant 56-year-old male who presents today for intrathecal pain pump [refill] [and reprogram]. The patient is being treated for degenerative disc disease of lumbar spine with lumbar radiculopathy symptoms. Patient is currently being managed with Dilaudid 10 mg/mL at a rate of 2.15 mg/day. Denies any side effect from this medication. Adequately managing his pain. Patient is wanting adjustment today. Patient rates pain a 5 out of 10. Drug screen is appropriate. Cyril [id number] with an active morphine equivalent of 0 has been reviewed and is appropriate. Physical exam General: Alert and oriented x3, no acute distress, pleasant and cooperative, [on room air] Lungs: Respirations even and unlabored, symmetrical chest expansion Eyes: PERRL Musculoskeletal: Flexion and extension of lumbar [spine] somewhat guarded secondary to pain, [antalgic gait noted] Neurological: Speech clear, no gross sensory deficit Procedure Details:: Informed consent was obtained and the risk and benefits of the procedure were explained to the patient. The patient was taken to the procedure room where noninvasive monitoring was placed including noninvasive blood pressure cuff and pulse oximeter. Patient's pump was interrogated. The area over the pump was cleansed with chlorhexidine as a cleansing solution. [Fluoroscopy was used to access the pump]. In sterile fashion the pump was accessed with a 22-gauge needle. Approximately 3.5 mls of the pump solution was removed and discarded appropriately. The pump was then refilled with 20 mL's of Dilaudid 10 mg/mL. The needle was withdrawn and a bandage was placed over the puncture site. The infusion rate was reprogrammed and increased to Dilaudid 2.35 mg/day. The patient tolerated well with no complication. Plan and Disposition:: We will see the patient back in the clinic at the next intrathecal refill. Patient has been instructed to contact the clinic with any concerns before the next appointment. Dr. Schwartz has reviewed this note and agrees with this plan of care. This note was dictated using voice recognition software and make contain errors or omissions.
[2022-03-10 13:41] VITALS: BP 115/76; PULSE 79; RESP 20; O2SAT 97
== END 2022-03-10 13:42 | disposition home or self-care (01) ==
LOC: SC.PAINP 12:54
PROVIDERS: PCP Family Medicine; Visit Provider Student in an Organized Health Care Education/Training Program
DX: M51.16 Intervertebral disc disorders with radiculopathy, lumbar region (principal); Z45.1 Encounter for adjustment and management of infusion pump; I25.10 Atherosclerotic heart disease of native coronary artery without angina pectoris; I10 Essential (primary) hypertension; Z87.891 Personal history of nicotine dependence; J44.9 Chronic obstructive pulmonary disease, unspecified; K21.9 Gastro-esophageal reflux disease without esophagitis; M19.90 Unspecified osteoarthritis, unspecified site; Z88.8 Allergy status to other drugs, medicaments and biological substances
CPT/HCPCS: 62370; Q9966

== ENCOUNTER 2022-05-13 12:49 | Day surgery (SDC) | payer MEDICARE, SELFPAY ==
[2022-05-13 12:59] VITALS: BP 119/73; BP 142/77; PULSE 82; PULSE 88; RESP 18; RESP 20; TEMP 36.9; O2SAT 95; O2SAT 96; BMI 33.9
--- NOTE | 2022-05-13 13:17 | HMH.PMPROC ---
- Procedure Date: 05/13/22 Time: 13:17 Anesthesiologist:: Andrew Zimmer CRNA Complications:: None Pre-procedure Diagnosis:: Degenerative disc disease of lumbar spine with lumbar radiculopathy symptoms Post-procedure Diagnosis:: Same Indications for Procedure:: Patient is a pleasant 56-year-old male who presents today for an intrathecal pain pump refill. Patient is being treated for degenerative disc disease of lumbar spine with lumbar radiculopathy symptoms. Patient is currently being managed with Dilaudid 10 mg/mL at a rate of 2.35 mg/day. He denies any side effects from this medication. He states this is adequately managing his pain. Patient rates his pain a 5 out of 10. His Cyril is [id number]. It has been reviewed and is appropriate. Procedure Details:: Informed consent was obtained and the risk and benefits of the procedure were explained to the patient. The patient was taken to the procedure room where noninvasive monitoring was placed, including a noninvasive blood pressure cuff and pulse oximeter. Patient's pump was interrogated. The area over the pump was cleansed with chlorhexidine as a cleansing solution. In a sterile fashion the pump was accessed with a 22-gauge needle. Approximately 5.5 mL of the pump solution was removed and discarded appropriately. The pump was then refilled with 20 mL of Dilaudid 10 mg/mL. The needle with was withdrawn and a bandage was placed over the puncture site. The infusion rate was continued at Dilaudid 2.35 mg/day. The patient tolerated well with no complication. Plan and Disposition:: Patient was discharged home without incident. We will see the patient back in clinic at the next intrathecal refill. Patient has been instructed to contact the clinic with any questions or concerns before the next appointment. Dr. Schwartz is reviewed this note and agrees with this plan of care. The note was dictated using voice recognition software and may contain errors or admissions.
[2022-05-13 13:18] VITALS: BP 131/74; PULSE 78; RESP 20; O2SAT 95
== END 2022-05-13 13:18 | disposition home or self-care (01) ==
LOC: SC.PAINP 12:50
PROVIDERS: PCP Family Medicine; Visit Provider Nurse Anesthetist, Certified Registered
DX: M51.16 Intervertebral disc disorders with radiculopathy, lumbar region (principal); I10 Essential (primary) hypertension; I25.10 Atherosclerotic heart disease of native coronary artery without angina pectoris
CPT/HCPCS: 95991

== ENCOUNTER 2022-07-22 11:33 | Day surgery (SDC) | payer MEDICARE, SELFPAY ==
[2022-07-22 11:40] VITALS: BP 140/78; PULSE 75; RESP 18; TEMP 36.9; O2SAT 96; BMI 34.5
[2022-07-22 11:45] VITALS: RESP 18; O2SAT 94
[2022-07-22 11:47] VITALS: BP 148/86; PULSE 78; RESP 18; O2SAT 96
--- NOTE | 2022-07-22 11:50 | P.PCN_ITS ---
Procedure Date: 07/22/22 Time: 11:50 Anesthesiologist:: Andrew Zimmer CRNA Complications:: None Pre-procedure Diagnosis:: Degenerative disc disease of lumbar spine with lumbar radiculopathy symptoms Post-procedure Diagnosis:: Same Indications for Procedure:: Patient is a pleasant 56-year-old male who presents today for intrathecal pain pump refill. We are currently treating the patient for degenerative disc disease of lumbar spine with lumbar radiculopathy symptoms. Patient is current ly managed with Dilaudid 10 mg/mL at a rate of 2.35 mg/day. Patient denies any side effects from this medication. Today he rates his pain a 8 out of 10. He states the pain is primarily in his low back that radiates into his lower extremities. Patient also states he has some bilateral knee pain and SI joint pain. Patient denies any new trauma or injury to the site. He is requesting an adjustment of his pump medication at today's visit. Physical exam General: Alert and oriented x3, no acute distress, pleasant and cooperative on room air Lungs: Respirations even and unlabored, symmetrical chest expansion Eyes: PERRL Musculoskeletal: Flexion and extension of lumbar spine somewhat guarded secondary to pain antalgic gait noted Neurological: Speech clear, no gross sensory deficit Procedure Details:: Informed consent was obtained and the risk and benefits of the procedure were discussed with the patient. The patient was taken to the procedure room where noninvasive monitoring was added to the patient including a noninvasive blood pressure cuff and pulse oximeter. Pump was interrogated. The skin around the area of the pump was cleansed with a chlorhexidine as a cleansing solution. In a sterile fashion the pump was accessed using a 22-gauge needle. Then from the interrogation of the system 3.7 mL of pump solution was expected. Approximately 4 mL of pump solution was removed and discarded appropriately. The pump was then refilled with 20 mL of Dilaudid 10 mg/mL. The needle was withdrawn and a bandage placed over the puncture site. The infusion rate was increased by 10% to Dilaudid 2.585 mg/day. The patient tolerated the procedure well with no complication Plan and Disposition:: We will follow-up with the patient in clinic in 2 weeks. At that time we will discuss whether or not the patient needs additional knee injections or SI injections. Patient has been instructed to contact the clinic with any concerns before the next appointment. Dr. Schwartz has read and agrees with this plan of care. This note was dictated using voice recognition and may contain errors or omissions.
[2022-07-22 12:00] VITALS: BP 126/74; PULSE 78; RESP 18; O2SAT 96
== END 2022-07-22 12:00 | disposition home or self-care (01) ==
PROVIDERS: PCP Family Medicine; Visit Provider Nurse Anesthetist, Certified Registered
DX: M51.16 Intervertebral disc disorders with radiculopathy, lumbar region (principal); Z72.0 Tobacco use
CPT/HCPCS: 62370

== ENCOUNTER 2022-09-19 11:02 | Day surgery (SDC) | payer MEDICARE, SELFPAY ==
[2022-09-19 11:14] VITALS: BP 138/81; PULSE 85; RESP 18; O2SAT 94; BMI 32.9
[2022-09-19 11:21] VITALS: BP 131/86; PULSE 89; RESP 18; O2SAT 98
[2022-09-19 11:22] VITALS: BP 131/86; PULSE 89; RESP 18; O2SAT 98
--- NOTE | 2022-09-19 11:25 | EXP.PAIN.PRO ---
Procedure Date: 09/19/22 Time: 11:20 Anesthesiologist:: Andrew Zimmer CRNA Complications:: None Pre-procedure Diagnosis:: Degenerative disc disease of lumbar spine with lumbar radiculopathy symptoms Post-procedure Diagnosis:: Same Indications for Procedure:: Patient is a pleasant 57-year-old male who presents today for intrathecal pain pump refill and reprogram. We are currently treating the patient for degenerative disc disease of lumbar spine with lumbar radiculopathy symptoms. Today he rates his pain a 6 out of 10. Patient denies any new trauma or injury. Patient denies any change of location or type of pain he experiences. Patient is currently managed with Dilaudid 10 mg/mL with a daily rate of 2.585 mg/day. Patient denies any side effects from this medication. He states this medication does help his pain symptoms. Patient does state today that he continues to have pain and he has bilateral hands due to arthritis. General: Alert and oriented x3, no acute distress, pleasant and cooperative Lungs: Respiration even unlabored, symmetrical chest expansion Eyes: PERRL Musculoskeletal: Flexion and extension of lumbar spine somewhat guarded secondary to pain, antalgic gait noted Neurological: Speech clear, no gross sensory deficit Procedure Details:: Informed consent was obtained and the risk and the benefits of the procedure were explained to the patient. The patient was taken to the procedure room where noninvasive monitoring such as a noninvasive blood pressure cuff and pulse oximeter was placed on the patient. The patient's pump was interrogated with 4.1mL expected. The area over the patient's pump was cleansed with ChloraPrep as a cleansing solution. Using a 22-gauge needle and aseptic technique the pump was accessed with 5 mL of solution withdrawn and discarded appropriately. In the pump was filled with 20 mL of solution of Dilaudid 10 mg/mL. The needle was withdrawn and a sterile bandage was placed over the site. The pump was then reinterrogated and continued at morphine 2.585 mg per day. Patient tolerated the procedure well with no complications. Plan and Disposition:: Patient was monitored in the clinic setting for short period of time following this procedure and discharged neurologically intact. I will order the patient a compounding cream at today's visit to help with his hand arthritis. Patient will return to clinic at his next intrathecal refill date. Patient has been counseled to contact the office with any questions or concerns before the next appointment date. Dr. Schwartz is read this note and agrees with this plan of care. This note was dictated using voice recognition software and may contain errors or omissions.
[2022-09-19 11:43] VITALS: BP 103/66; PULSE 80; RESP 20
== END 2022-09-19 11:44 | disposition home or self-care (01) ==
PROVIDERS: PCP Family Medicine; Visit Provider Nurse Anesthetist, Certified Registered
DX: M51.16 Intervertebral disc disorders with radiculopathy, lumbar region (principal)
CPT/HCPCS: 95991

== ENCOUNTER 2022-11-11 09:12 | Day surgery (SDC) | payer MEDICARE, SELFPAY ==
[2022-11-11 09:30] VITALS: BP 127/75; PULSE 85; RESP 18; TEMP 36.9; O2SAT 95; BMI 33.6
--- NOTE | 2022-11-11 09:47 | EXP.PAIN.PRO ---
Procedure Date: 11/11/22 Time: 09:47 Anesthesiologist:: Maranda Mariee APRN Complications:: None Pre-procedure Diagnosis:: Generative disc disease of lumbar spine with lumbar radiculopathy symptoms Post-procedure Diagnosis:: Same Indications for Procedure:: Patient is a pleasant 57-year-old male who presents today for intrathecal pain pump refill and reprogram. The patient is being treated for degenerative disc disease of lumbar spine with lumbar radiculopathy symptoms. Patient is currently being managed with Dilaudid 10 mg/mL with a daily dose of 2.585 mg/day. Patient denies any side effects from this medication. Patient rates pain a 6 out of 10. Patient denies any new trauma or injury. Patient denies any change to location or type of pain he experiences. Patient does state he has been experiencing a more consistent increase of pain and would like a small increase if possible today. Drug screen is appropriate. Cyril has been reviewed and is appropriate. Physical exam General: Alert and oriented x3, no acute distress, pleasant and cooperative Lungs: Respirations even and unlabored, symmetrical chest expansion Eyes: PERRL Musculoskeletal: Flexion and extension of lumbar [spine] somewhat guarded secondary to pain, [antalgic gait noted] Neurological: Speech clear, no gross sensory deficit Procedure Details:: Informed consent was obtained and the risk and benefits of the procedure were explained to the patient. The patient was taken to the procedure room where noninvasive monitoring was placed including noninvasive blood pressure cuff and pulse oximeter. Patient's pump was interrogated. The area over the pump was cleansed with chlorhexidine as a cleansing solution. In sterile fashion the pump was accessed with a 22-gauge needle. Approximately 5.7 mls of solution was expected from the pump interrogation and 6 mL of the pump solution was removed and discarded appropriately. The pump was then refilled with 20 mL's of Dilaudid 15 mg/mL. The needle was withdrawn and a bandage was placed over the puncture site. The infusion rate was reprogrammed and increased to Dilaudid 2.8435 mg/day. The patient tolerated well with no complication. Plan and Disposition:: We will see the patient back in the clinic at the next intrathecal refill. Patient has been instructed to contact the clinic with any concerns before the next appointment. Dr. Schwartz has reviewed this note and agrees with this plan of care. This note was dictated using voice recognition software and make contain errors or omissions. -- It Is medically necessary for this patient to continue to have their intrathecal pump refilled at regular intervals. This patient had an intrathecal pain pump implanted after meeting criteria of chronic intractable pain for greater than 3 months and failing conservative treatments. Patient has committed and been compliant to the treatment plan and all planned follow up care. Since implantation of the intrathecal pain pump, the patient has had decreased pain and been more functional. Oral medications have been reduced including intake of oral opioids. Patient continues to do well with intrathecal therapy with decrease in pain symptoms and increase in functional status. Stopping intrathecal medications can lead to life threatening withdrawal, seizures, cardiac arrest, severe pain, and possible . Pumps that are not refilled at regular intervals can be damages and cause and need for replacement. We continually titrate dose and concentration to optimize pain relief and function. We are limited in concentration for certain drugs to safely deliver medications through the pump and stay within the recommendations from the Polyanalges[employer] Consensus Committee Guidelines. Depending on dose and concentration these pumps may need to be refilled sooner than 3 months as we titrate.
[2022-11-11 09:51] VITALS: BP 127/73; PULSE 79; RESP 18; O2SAT 100
== END 2022-11-11 09:51 | disposition home or self-care (01) ==
PROVIDERS: PCP Family Medicine; Visit Provider Nurse Anesthetist, Certified Registered
DX: M51.16 Intervertebral disc disorders with radiculopathy, lumbar region (principal); F17.290 Nicotine dependence, other tobacco product, uncomplicated
CPT/HCPCS: 62370

== ENCOUNTER 2023-01-27 09:56 | Day surgery (SDC) | payer MEDICARE, SELFPAY ==
[2023-01-27 10:19] VITALS: BP 131/75; PULSE 83; RESP 18; TEMP 36.9; O2SAT 95; BMI 33.9
--- NOTE | 2023-01-27 10:47 | EXP.PAIN.PRO ---
Procedure Date: 01/27/23 Time: 10:40 Anesthesiologist:: Andrew Zimmer CRNA Complications:: None Pre-procedure Diagnosis:: Degenerative disc lumbar spine multilevels. Lumbar radiculopathy. Post-procedure Diagnosis:: Same. Indications for Procedure:: Very pleasant 57-year-old male that comes to clinic today for intrathecal pain pump interrogation refill. Patient states his intrathecal pain pump is doing very well. However, he is asking for a slight increase today due to increased back pain. Patient has been very active with the weather being warm. He is outside doing projects around the house. He rates his pain today 4/10. We will increase his pump by 10% today. He is currently being managed with Dilaudid 15 mg/mL at 2.8435 mg/day. We will increase him to 3.1300 mg/day Procedure Details:: Details of the procedure explained to the patient. The patient taken to procedure room placed in the sitting position. The area over the pump was cleansed using chlorhexidine as a cleansing solution. The pump was interrogated. The pump was accessed with ease using 22-gauge inch and half needle. 5 mL of solution was withdrawn and discarded appropriately. The pump was then filled incrementally with Dilaudid 15 mg/mL at 20 cc. The pump was increased by 10%. The new rate will be 3.1300 mg/day. Patient tolerated procedure without difficulty. There are no complications Plan and Disposition:: Patient was discharged without incident.
[2023-01-27 10:50] VITALS: BP 117/71; PULSE 77; RESP 18; O2SAT 95
== END 2023-01-27 10:50 | disposition home or self-care (01) ==
PROVIDERS: PCP Family Medicine; Visit Provider Nurse Anesthetist, Certified Registered
DX: Z45.1 Encounter for adjustment and management of infusion pump (principal); M51.16 Intervertebral disc disorders with radiculopathy, lumbar region
CPT/HCPCS: 95991

== ENCOUNTER → 2023-02-13 12:45 | Outpatient (POV) | payer MEDICARE, SELFPAY ==
[2023-02-13 13:34] VITALS: BP 132/75; PULSE 82; RESP 20; TEMP 36.7; O2SAT 98; BMI 33.9
--- NOTE | 2023-02-13 14:21 | EXP.PAIN.PRO ---
Procedure Date: 02/13/23 Time: 14:21 Anesthesiologist:: Silvestre Schwartz MD Complications:: None Pre-procedure Diagnosis:: Increasing pain over the pain pump reservoir Post-procedure Diagnosis:: Same Indications for Procedure:: This patient is a pleasant 57-year-old white male who has an intrathecal Dilaudid pain pump in place. He is currently going at 3.13 mg/day. Approximately 2 to 3 days ago he started having pain in the lower lumbar paraspinous area underneath his pump. This pain does seem to be myofascial in origin. Trigger points are identified. We will plan on doing trigger point injections today to help with his pain symptoms. Procedure Details:: Trigger point injections x4 Informed consent was obtained the risk and benefits of the procedure were explained to the patient. Patient was taken the procedure room. The area over the pump was prepped using ChloraPrep. 25-gauge needle was used to inject 10 mL bupivacaine 0.25% and Depo-Medrol underneath the pump into the lumbar paraspinous area. Patient tolerated procedure well with no complications. Plan and Disposition:: We will follow-up with this patient in 2 weeks. Will reevaluate symptoms at that time. We did interrogate the pump. We did not make any changes. He is due for refill on April 15, 2023.
== END | disposition home or self-care (01) ==
PROVIDERS: PCP Family Medicine; Visit Provider Anesthesiology
DX: T85.840A Pain due to nervous system prosthetic devices, implants and grafts, initial encounter (principal); M54.89 Other dorsalgia; M51.16 Intervertebral disc disorders with radiculopathy, lumbar region
CPT/HCPCS: 20552; 99212; G0463

== ENCOUNTER 2023-02-17 14:20 | Day surgery (SDC) | payer MEDICARE, SELFPAY ==
[2023-02-17 14:31] VITALS: BP 119/77; PULSE 80; RESP 18; TEMP 37.1; O2SAT 95; BMI 33.9
[2023-02-17 14:36] VITALS: BP 130/79; PULSE 85; RESP 18; O2SAT 95
--- NOTE | 2023-02-17 14:48 | EXP.PAIN.PRO ---
Procedure Date: 02/17/23 Time: 14:25 Anesthesiologist:: Andrew Zimmer CRNA Complications:: None Pre-procedure Diagnosis:: Right sacroiliitis Post-procedure Diagnosis:: Same. Indications for Procedure:: Very pleasant 57-year-old male that comes our clinic today for right sacroiliac joint injection. He has extreme point tenderness over the right sacroiliac joint. Patient has had this injection in the past with significant improvement. Patient has intrathecal pain pump just above the superior border of the right SI joint. Procedure Details:: Procedure: Right sacroliliac joint injection under fluoroscopy Informed consent was obtained and the risk and benefits of the procedure were explained to the patient.~ The patient was taken to the procedure room and noninvasive monitors were placed including noninvasive blood pressure cuff and pulse oximeter.~ The patient was placed prone on the procedure table.~ The~ right hip was cleansed using Betadine as a cleansing solution.~ C-arm fluorosocpy was used to view the right SI joint.~ The skin and subcutaneous tissues were anesthetized using Lidocaine 1.5% and a 25-gauge needle.~ After this, a 22-gauge spinal needle was inserted under fluoroscopic guidance into the inferior aspect of the right SI joint.~ Omnipaque dye was injected and a good spread was seen throughout the joint.~ After this, approximately 5 mL of bupivacaine 0.25% and Depo-Medrol 40 mg was incrementally injected into the sacroiliac joint.~ The patient tolerated the procedure well with no complications.~ The patient was observed in the Pain Clinic, then discharged home neurologically intact.~ Plan and Disposition:: Patient was discharged without incident.
== END 2023-02-17 14:36 | disposition home or self-care (01) ==
LOC: SC.PAINP 14:21
PROVIDERS: PCP Family Medicine; Visit Provider Nurse Anesthetist, Certified Registered
DX: M46.1 Sacroiliitis, not elsewhere classified (principal)
CPT/HCPCS: 27096; G0260; J1040

== ENCOUNTER 2023-04-07 13:21 | Day surgery (SDC) | payer MEDICARE, SELFPAY ==
[2023-04-07 13:33] VITALS: BP 109/76; PULSE 75; RESP 18; TEMP 36.4; O2SAT 97; BMI 32.3
[2023-04-07 13:38] VITALS: BP 117/72; PULSE 76; RESP 18; O2SAT 98
[2023-04-07 13:41] VITALS: BP 117/72; PULSE 76; RESP 18; O2SAT 97
--- NOTE | 2023-04-07 13:47 | EXP.PAIN.PRO ---
Procedure Date: 04/07/23 Time: 13:45 Anesthesiologist:: Andrew Zimmer CRNA Complications:: None Pre-procedure Diagnosis:: Degenerative disc disease lumbar spine multilevels. Lumbar radiculopathy. Post-procedure Diagnosis:: Same. Indications for Procedure:: Very pleasant 57-year-old male who comes our clinic today for intrathecal pain pump interrogation refill. He is currently being managed with Dilaudid 15 mg/mL at 3.13 mg/day. Patient has no complaints regarding the current rate and/or medication. He is doing very well with his current settings. Procedure Details:: Details of the procedure explained to the patient. Patient taken the procedure room placed in the sitting position. The area over the pump was cleansed using chlorhexidine as a cleansing solution. The pump was interrogated. The pump was accessed with ease using a 22-gauge inch and half needle. 5.5 mL of solution was withdrawn and discarded appropriately. The pump was then filled incrementally with 20 cc of Dilaudid 15 mg/mL. The pump rate will remain the same. Patient tolerated the procedure without incident. Plan and Disposition:: Patient was discharged without incident.
[2023-04-07 13:48] VITALS: BP 108/76; PULSE 77; RESP 16; O2SAT 97
== END 2023-04-07 13:48 | disposition home or self-care (01) ==
PROVIDERS: PCP Family Medicine; Visit Provider Nurse Anesthetist, Certified Registered
DX: Z45.1 Encounter for adjustment and management of infusion pump (principal); M51.16 Intervertebral disc disorders with radiculopathy, lumbar region
CPT/HCPCS: 95991

== ENCOUNTER → 2023-04-27 09:50 | Outpatient (POV) | payer MEDICARE, SELFPAY ==
--- NOTE | 2023-04-27 10:31 | EXP.PAIN.SOA ---
[facility] Pain Management SOAP Note Subjective:: Patient is a pleasant 57-year-old male who presents today for follow-up. We are currently treating the patient for degenerative disc disease of lumbar spine with lumbar radiculopathy symptoms. Today he rates his pain a 5 out of 10. Patient denies any new trauma or injury. He does state that his pain is all in his bilateral knees and describes it as an aching, throbbing sensation that is worse with increased activity. He states the pain does interfere with his ability to perform activities of daily living such as cooking and cleaning or just simple ambulation. Patient states this has been going on for years and progressively worsened over time. Patient denies any previous knee replacement or recent imaging. He does use [id number] medications such as Tylenol and ibuprofen along with heat and Biofreeze however he states over the last couple of months this is not doing as well for relief. Patient is currently being managed with an intrathecal pain pump of Dilaudid 15 mg/mL with a daily dose of 3.13 mg/day. Patient denies any side effects from this medication. P his Cyril is [id number]. Its been reviewed and appropriate. Review of Systems: General: No recent weight changes, no fever, no sleep disturbances Respiratory: No cough, no shortness of air, no recurring pulmonary infections Cardiovascular/peripheral vascular: No chest pain, no palpitations, no edema, no shortness of breath Gastrointestinal: No new onset incontinence, normal bowel movements reported Genitourinary: No new onset incontinence Musculoskeletal: Bilateral knee pain Psychiatric: [Normal mood/affect] Neurological: [Denies weakness in extremities], [denies balance issues] Objective:: Physical Exam: General: Alert and oriented x3, no acute distress, pleasant and cooperative Lungs: Respirations even and unlabored, symmetrical chest expansion Eyes: PERRL Musculoskeletal: Flexion and extension of bilateral knees somewhat guarded secondary to pain, [antalgic gait noted] Neurological: Speech clear, no gross sensory deficit Assessment:: Degenerative disc disease of lumbar spine with lumbar radiculopathy symptoms, bilateral knee pain Plan:: Patient is experiencing significant pain in his bilateral knees with limited range of motion. I will order x-ray imaging of his bilateral knees and I have also discussed with the patient that he may benefit from bilateral intra-articular knee injections. Risk and benefits were discussed with the patient and he would like to proceed forward with this plan of care. We will schedule the patient for bilateral knee intra-articular injections. Patient has been instructed to contact the clinic with any concerns before the next appointment. Dr. Schwartz has reviewed this note and agrees with this plan of care. This note was dictated using voice recognition software and make contain errors or omissions. -- It Is medically necessary for this patient to continue to have their intrathecal pump refilled at regular intervals. This patient had an intrathecal pain pump implanted after meeting criteria of chronic intractable pain for greater than 3 months and failing conservative treatments. Patient has committed and been compliant to the treatment plan and all planned follow up care. Since implantation of the intrathecal pain pump, the patient has had decreased pain and been more functional. Oral medications have been reduced including intake of oral opioids. Patient continues to do well with intrathecal therapy with decrease in pain symptoms and increase in functional status. Stopping intrathecal medications can lead to life threatening withdrawal, seizures, cardiac arrest, severe pain, and possible . Pumps that are not refilled at regular intervals can be damages and cause and need for replacement. We continually titrate dose and concentration to optimize pain relief and function. We are limited in concentration for certain drugs
[2023-04-27 11:45] VITALS: BP 116/76; PULSE 81; RESP 18; O2SAT 99; BMI 32.3
== END ==
PROVIDERS: PCP Family Medicine; Visit Provider Nurse Practitioner Family
DX: M51.16 Intervertebral disc disorders with radiculopathy, lumbar region (principal); M25.561 Pain in right knee; M25.562 Pain in left knee
CPT/HCPCS: 99212; G0463

== ENCOUNTER → 2023-04-27 10:38 | Outpatient (CLI) | payer MEDICARE, SELFPAY ==
--- NOTE | 2023-04-27 10:44 | XR_ITS ---
FINAL REPORT CLINICAL HISTORY: NO INJURY FINDINGS: LEFT KNEE: Three views of the left knee were obtained. There is no acute fracture or dislocation. There is mild degenerative change present. Visualized joint spaces are normally aligned. There is no joint effusion. Soft tissues are unremarkable. IMPRESSION: No acute bony abnormality. Mild degenerative change. Reviewed, Interpreted and Dictated by Remy Mendoza III, MD Transcribed by Gardenia Lund Authenticated and [facility]
--- NOTE | 2023-04-27 10:44 | XR_ITS ---
FINAL REPORT CLINICAL HISTORY: NO INJURY FINDINGS: Three views of the right knee reveal no evidence of fracture or dislocation. The bony alignment is normal. Mild degenerative changes present. There is no evidence of joint effusion. No localized soft tissue abnormality is identified. IMPRESSION: No acute abnormality identified. Mild degenerative change present. Reviewed, Interpreted and Dictated by Remy Mendoza III, MD Transcribed by Gardenia Lund Authenticated and [facility]
== END ==
PROVIDERS: PCP Family Medicine; Visit Provider Nurse Practitioner Family
DX: M25.561 Pain in right knee (principal); M25.562 Pain in left knee
CPT/HCPCS: 73562; 99212; G0463

== ENCOUNTER 2023-05-12 10:55 | Day surgery (SDC) | payer MEDICARE, SELFPAY ==
[2023-05-12 11:04] VITALS: BP 113/67; PULSE 88; RESP 18; TEMP 36.8; O2SAT 94; BMI 32.5
[2023-05-12 11:09] VITALS: BP 121/74; PULSE 89; RESP 18; O2SAT 98
[2023-05-12 11:11] VITALS: BP 121/74; PULSE 89; RESP 18; O2SAT 98
[2023-05-12 11:15] VITALS: BP 117/74; PULSE 81; RESP 18; O2SAT 94
--- NOTE | 2023-05-12 11:27 | P.PCN_ITS ---
Procedure Date: 05/12/23 Time: 11:20 Anesthesiologist:: Andrew Zimmer CRNA Complications:: None Pre-procedure Diagnosis:: Osteoarthritis bilateral knees. Post-procedure Diagnosis:: Same. Indications for Procedure:: Very pleasant 57-year-old male that comes our clinic today for bilateral intra- articular knee injections. Patient describes knee pain as constant, dull, aching. Patient rates his pain 7/10. Patient reports pain increases significantly when ambulating. Procedure Details:: . Procedure Details: Bilateral intra-articular knee injection Informed consent was obtained risk and benefits of the procedure were explained to the patient. Patient was taken the procedure room both knees were prepped using ChloraPrep. A 25-gauge needle was used to inject 10 mL bupivacaine 0.25% and Depo-Medrol 40 mg into each knee. We did a total of 80 mg Depo-Medrol for both knees. The patient tolerated the procedure well with no complications. Plan and Disposition:: Patient was discharged without incident
== END 2023-05-12 11:15 | disposition home or self-care (01) ==
PROVIDERS: PCP Family Medicine; Visit Provider Nurse Anesthetist, Certified Registered
DX: M17.0 Bilateral primary osteoarthritis of knee (principal)
CPT/HCPCS: 20610; J1040

== ENCOUNTER → 2023-05-27 10:44 | Outpatient (POV) | payer MEDICARE, SELFPAY ==
[2023-05-27 10:56] VITALS: BP 121/74; PULSE 75; RESP 20; BMI 33.2
--- NOTE | 2023-05-27 11:42 | EXP.PAIN.SOA ---
[facility] Pain Management SOAP Note Subjective:: Patient is a pleasant 57-year-old male who presents today for follow-up of bilateral intra-articular knee injection on 05/12/2023. We are currently treating the patient for degenerative disc disease of lumbar spine with lumbar radiculopathy symptoms, bilateral knee pain. Today he rates his pain a 4 out of 10. Patient denies any new trauma or injury. Patient denies any change to location or type of pain he experiences. He does state that he had at least 50% improvement in his left knee and that the popping sensation has diminished following this injection. He does state though that the right knee he noticed no additional improvement. Patient does state that his pain today is mostly related to the right knee. He does describe this as an aching, throbbing sensation that is worse with increased activity and does have catching sensations. At her last visit we did send him for x-ray imaging. Patient denies seeing a orthopedic surgeon for his chronic knee pain. He has tried [id number] medications such as Tylenol and ibuprofen along with multiple topicals such as Biofreeze and IcyHot with no additional relief. He does state that he uses a heating pad daily for temporary relief. Patient does have an intrathecal pain pump of Dilaudid 15 mg/mL with a daily dose of 3.13 mg/day. Patient denies any side effects from this medication. His Cyril is [id number]. Its been reviewed and appropriate. Review of Systems: General: No recent weight changes, no fever, no sleep disturbances Respiratory: No cough, no shortness of air, no recurring pulmonary infections Cardiovascular/peripheral vascular: No chest pain, no palpitations, no edema, no shortness of breath Gastrointestinal: No new onset incontinence, normal bowel movements reported Genitourinary: No new onset incontinence Musculoskeletal: Right knee pain Psychiatric: [Normal mood/affect] Neurological: [Denies weakness in extremities], [denies balance issues] Objective:: Physical Exam: General: Alert and oriented x3, no acute distress, pleasant and cooperative Lungs: Respirations even and unlabored, symmetrical chest expansion Eyes: PERRL Musculoskeletal: Flexion and extension of right knee somewhat guarded secondary to pain, [antalgic gait noted] Neurological: Speech clear, no gross sensory deficit FINDINGS: Three views of the right knee reveal no evidence of fracture or dislocation. The bony alignment is normal. Mild degenerative changes present. There is no evidence of joint effusion. No localized soft tissue abnormality is identified. IMPRESSION: No acute abnormality identified. Mild degenerative change present. Reviewed, Interpreted and Dictated by Remy Mendoza III, MD Transcribed by Gardenia Lund Authenticated and . [facility] FINDINGS: LEFT KNEE: Three views of the left knee were obtained. There is no acute fracture or dislocation. There is mild degenerative change present. Visualized joint spaces are normally aligned. There is no joint effusion. Soft tissues are unremarkable. IMPRESSION: No acute bony abnormality. Mild degenerative change. Reviewed, Interpreted and Dictated by Remy Mendoza III, MD Transcribed by Gardenia Lund Authenticated and . [facility] Assessment:: Degenerative disc disease of lumbar spine with lumbar radiculopathy symptoms, bilateral knee pain Plan:: Patient continues to experience significant pain in his right knee with limited range of motion. I will order an MRI without contrast of his right knee. His intrathecal pump will have to be emptied prior to this procedure. I will also send the patient for referral to [facility] for possible surgical intervention. Patient will return to clinic in 4 weeks for reevaluation of symptoms an
== END ==
PROVIDERS: PCP Family Medicine; Visit Provider Nurse Practitioner Family
DX: M51.16 Intervertebral disc disorders with radiculopathy, lumbar region (principal); M25.561 Pain in right knee; M25.562 Pain in left knee
CPT/HCPCS: 99212; G0463

== ENCOUNTER 2023-06-26 13:49 | Day surgery (SDC) | payer MEDICARE, SELFPAY ==
[2023-06-26 14:02] VITALS: BP 120/77; BP 129/73; PULSE 73; PULSE 85; RESP 20; TEMP 36.7; O2SAT 96; BMI 32.5
[2023-06-26 14:05] VITALS: BP 114/79; PULSE 89; RESP 18; O2SAT 98
[2023-06-26 14:06] VITALS: BP 114/79; PULSE 89; RESP 18; O2SAT 98
--- NOTE | 2023-06-26 16:41 | EXP.PAIN.PRO ---
Procedure Date: 06/26/23 Time: 16:41 Anesthesiologist:: Silvestre Schwartz MD Complications:: None Pre-procedure Diagnosis:: Degenerative disc disease of lumbar spine with lumbar radiculopathy symptoms Post-procedure Diagnosis:: Same Indications for Procedure:: The patient is a pleasant 57-year-old white male who we are treating for low back pain with lumbar radiculopathy symptoms. He has an intrathecal Dilaudid pain pump in place. He is having some increasing pain. We will refill his pump today and increase his infusion. He does have an antalgic gait. Motor strength of lower extremities is 5/5. There is no gross sensory deficit. Cyril and drug screen are all appropriate. Procedure Details:: Informed consent was obtained and the risks and benefits of the procedure was explained to the patient. The patient was taken to the procedure room. The pump was interrogated. The area over the pump was prepped using ChloraPrep. The pump was accessed with a 22-gauge needle. Approximately 2 mL's of the intrathecal solution was withdrawn and discarded. The pump was then refilled with 20 mL's of intrathecal Dilaudid 15 mg/mL. The pump was interrogated and the infusion was increased to 3.44 mg/day. The patient tolerated the procedure well with no complication. Plan and Disposition:: We will follow-up with this patient at his next pump refill. This would be on or before September 05, 2023
== END 2023-06-26 14:19 | disposition home or self-care (01) ==
PROVIDERS: PCP Family Medicine; Visit Provider Anesthesiology
DX: M51.16 Intervertebral disc disorders with radiculopathy, lumbar region (principal); Z97.8 Presence of other specified devices
CPT/HCPCS: 95991

== ENCOUNTER 2023-08-25 12:31 | Day surgery (SDC) | payer MEDICARE, SELFPAY ==
[2023-08-25 12:45] VITALS: BP 124/79; PULSE 96; RESP 16; TEMP 36.8; O2SAT 97; BMI 31.7
[2023-08-25 12:57] VITALS: BP 122/78; PULSE 91; RESP 18; O2SAT 98
[2023-08-25 12:58] VITALS: BP 122/78; PULSE 91; RESP 18; O2SAT 98
[2023-08-25 13:00] VITALS: BP 111/83; PULSE 88; RESP 18; O2SAT 97
--- NOTE | 2023-08-25 13:10 | EXP.PAIN.PRO ---
Procedure Date: 08/25/23 Time: 13:12 Anesthesiologist:: Andrew Zimmer CRNA Complications:: None Pre-procedure Diagnosis:: Degenerative disc lumbar spine multilevels. Lumbar radiculopathy. Post-procedure Diagnosis:: Same. Indications for Procedure:: Patient is a very pleasant 57-year-old male that comes our clinic today for intrathecal pain pump interrogation refill. Patient is currently being managed with Dilaudid 15 mg/mL at 3.44 mg/day. Patient reports having some increased low back pain with activity. Having difficulty sleeping at times due to the lumbar back pain. He is requesting an increase today. He rates his pain 6/10. Patient also complained of right sacroiliac joint pain. Upon examination has extreme point tenderness over the right sacroiliac joint. Patient has positive Ricco's test. Positive Gaenslen's test. Positive right sacroiliac joint compression test. Procedure Details:: Details of the procedure explained to the patient. Patient taken to procedure room placed in the sitting position. The air over the pump was cleaned using chlorhexidine as a cleansing solution. The pump was interrogated. The pump was accessed with ease using a 22-gauge inch and a half needle. 5.5 mL of solution was withdrawn from the pump and discarded appropriately. The pump was then filled with 20 mL of solution containing Dilaudid 15 mg/mL. Pump will be increased by 10%. Patient's new rate will be 3.8 mg/day. Patient tolerated procedure without difficulty. There are no complications. Plan and Disposition:: Patient was discharged without incident.
== END 2023-08-25 13:00 | disposition home or self-care (01) ==
LOC: SC.PAINP 12:33
PROVIDERS: PCP Family Medicine; Visit Provider Nurse Anesthetist, Certified Registered
DX: M51.16 Intervertebral disc disorders with radiculopathy, lumbar region (principal); Z97.8 Presence of other specified devices; M46.1 Sacroiliitis, not elsewhere classified
CPT/HCPCS: 95991

== ENCOUNTER 2023-09-22 07:33 | Day surgery (SDC) | payer MEDICARE, SELFPAY ==
[2023-09-22 11:25] VITALS: BP 117/69; PULSE 50; RESP 15; TEMP 36.6; O2SAT 97; BMI 31.7
[2023-09-22 11:37] VITALS: BP 138/75; PULSE 92; O2SAT 94
[2023-09-22 11:39] VITALS: BP 138/75; PULSE 94; O2SAT 95
[2023-09-22 11:49] VITALS: BP 132/85; PULSE 87; RESP 16; O2SAT 97
--- NOTE | 2023-09-22 11:50 | EXP.PAIN.PRO ---
Procedure Date: 09/22/23 Time: 11:40 Anesthesiologist:: Andrew Zimmer CRNA Complications:: None Pre-procedure Diagnosis:: Degenerative disc lumbar spine multilevels. Lumbar radiculopathy. Right sacroiliitis. Post-procedure Diagnosis:: Same. Indications for Procedure:: Patient is a pleasant 58-year-old male comes our clinic today for right sacroiliac joint injection. We currently manage the patient with Dilaudid 15 mg/mL intrathecally. Patient is complaining of right low lumbar hip pain as well as right posterior hip pain. He has extreme point tenderness upon examination of the right sacroiliac joint. He rates his pain 6/10. Procedure Details:: Procedure: Right sacroliliac joint injection under fluoroscopy Informed consent was obtained and the risk and benefits of the procedure were explained to the patient.~ The patient was taken to the procedure room and noninvasive monitors were placed including noninvasive blood pressure cuff and pulse oximeter.~ The patient was placed prone on the procedure table.~ The~ right hip was cleansed using Betadine as a cleansing solution.~ C-arm fluorosocpy was used to view the right SI joint.~ The skin and subcutaneous tissues were anesthetized using Lidocaine 1.5% and a 25-gauge needle.~ After this, a 22-gauge spinal needle was inserted under fluoroscopic guidance into the inferior aspect of the right SI joint.~ Omnipaque dye was injected and a good spread was seen throughout the joint.~ After this, approximately 5 mL of bupivacaine 0.25% and Depo-Medrol 40 mg was incrementally injected into the sacroiliac joint.~ The patient tolerated the procedure well with no complications.~ The patient was observed in the Pain Clinic, then discharged home neurologically intact.~ Plan and Disposition:: Patient was discharged without incident.
== END 2023-09-22 11:49 | disposition home or self-care (01) ==
LOC: SC.PAINP 07:35
PROVIDERS: PCP Family Medicine; Visit Provider Nurse Anesthetist, Certified Registered
DX: M51.16 Intervertebral disc disorders with radiculopathy, lumbar region (principal); M46.1 Sacroiliitis, not elsewhere classified
CPT/HCPCS: 27096; G0260; J1040

== ENCOUNTER 2023-10-30 07:50 | Day surgery (SDC) | payer MEDICARE, SELFPAY ==
[2023-10-30 08:15] VITALS: BP 120/73; BP 126/78; PULSE 86; PULSE 93; PULSE 94; RESP 16; RESP 18; TEMP 37; O2SAT 95; BMI 31.4
--- NOTE | 2023-10-30 08:25 | EXP.PAIN.PRO ---
Procedure Date: 10/30/23 Time: 08:20 Anesthesiologist:: Andrew Zimmer CRNA Complications:: None Pre-procedure Diagnosis:: Degenerative disc lumbar spine multilevels. Lumbar radiculopathy. Lumbar postlaminectomy syndrome. Post-procedure Diagnosis:: Same. Indications for Procedure:: This patient is a very pleasant 58-year-old male comes our clinic today for intrathecal pain pump interrogation and refill. He is currently being managed with Dilaudid 15 mg/mL rate of 3.8 mg/day. He is doing very well with his current settings. He is not requesting any changes. He does not report any side effects or complications from his current intrathecal pain pump management. Procedure Details:: Details of the procedure explained to the patient. The patient taken procedure room placed in the sitting position. The area of the pump was cleansed using chlorhexidine's cleansing solution. The pump was interrogated. The pump was accessed with ease using 22-gauge inch and half needle. 3 mL of solution was withdrawn and discarded appropriately. The pump was then filled with 20 cc of solution containing of Dilaudid 15 mg/mL. Patient tolerated procedure without difficulty. General complications. Plan and Disposition:: Patient was discharged without incident.
[2023-10-30 08:28] VITALS: BP 105/80; PULSE 94; RESP 16; O2SAT 95
== END 2023-10-30 08:28 | disposition home or self-care (01) ==
PROVIDERS: PCP Family Medicine; Visit Provider Nurse Anesthetist, Certified Registered
DX: M51.16 Intervertebral disc disorders with radiculopathy, lumbar region (principal); M96.1 Postlaminectomy syndrome, not elsewhere classified; Z97.8 Presence of other specified devices; Z45.1 Encounter for adjustment and management of infusion pump
CPT/HCPCS: 95991

== ENCOUNTER 2023-12-22 08:24 | Day surgery (SDC) | payer MEDICARE, SELFPAY ==
[2023-12-22 08:34] VITALS: BP 123/74; PULSE 86; RESP 16; TEMP 36.2; O2SAT 94; BMI 31.8
[2023-12-22 08:55] VITALS: BP 142/87; PULSE 84; RESP 18; O2SAT 97
[2023-12-22 08:57] VITALS: BP 142/87; PULSE 84; RESP 18; O2SAT 97
[2023-12-22 09:05] VITALS: BP 119/79; PULSE 83; RESP 16; O2SAT 94
--- NOTE | 2023-12-22 09:11 | EXP.PAIN.PRO ---
Procedure Date: 12/22/23 Time: 08:45 Anesthesiologist:: Andrew Zimmer CRNA Complications:: None Pre-procedure Diagnosis:: Degenerative disc lumbar spine multilevels. Lumbar radiculopathy. Lumbar postlaminectomy syndrome. Right sacroiliitis. Pump end-of-life approaching. Post-procedure Diagnosis:: Same. Indications for Procedure:: Patient is a very pleasant 58-year-old male comes our clinic today for intrathecal pain pump interrogation refill. He is currently being managed with Dilaudid 15 mg/mL at a rate of 3.8 mg/day. Patient is reporting increased low back pain with activity. He describes the low back pain as constant, dull, aching. Patient's main complaint is low right posterior hip pain. Low lumbar back pain off the midline to the right. Patient has extreme point tenderness over the right sacroiliac joint upon examination. Patient has positive Ricco's test on the right. Positive Gaenslen's test on the right. Positive right SI joint compression test. Patient has had success in the past with right sacroiliac joint injections. He is tried and failed conservative measures in addition to his intrathecal pain pump management. Such as acetaminophen, ibuprofen, home exercise program, physical therapy. Patient is nearing end-of-life with his flow Dustin pump. We discussed pump replacement. I answered the patient's questions. I assured him we would do the replacement here in [place]. He wishes to proceed when needed. Procedure Details:: Details of the procedure explained to the patient. The patient taken procedure room placed in the sitting position. The area of the pump is cleansed using chlorhexidine's cleansing solution. The pump was interrogated. The pump was accessed with ease using 22-gauge inch and half needle. 6.5 mL of solution was withdrawn discarded appropriate. The pump was then filled with 20 cc of solution containing Dilaudid 15 mg/mL. The pump rate will be increased by 10% today. His new rate will be 4.18 mg/day. Patient tolerated procedure without difficulty. There are no complications. Plan and Disposition:: We will seek approval from insurance for right sacroiliac joint injection of cortisone. Patient was discharged without incident.
[2023-12-22 10:18] LABS: Benzodiazepines Screen,Urine Negative ng/ml (<200)
[2023-12-22 10:19] LABS: Amphetamine/Metha Screen,Urine Negative ng/ml (<1000); Barbiturates Screen,Urine Negative ng/ml (<200)
[2023-12-22 10:20] LABS: Cannabinoid Screen,Urine Negative ng/ml (<50)
[2023-12-22 10:21] LABS: Cocaine Screen,Urine Negative ng/ml (<300); Methadone Screen,Urine Negative ng/ml (<300)
[2023-12-22 10:23] LABS: Phencyclidine Screen,Urine Negative ng/ml (<25)
[2023-12-22 10:24] LABS: Opiate Screen,Urine Positive ng/ml (<300)
[2023-12-28 00:07] LABS: Codeine Negative (Cutoff=100); Hydrocodone Negative (Cutoff=100); Hydromorphone Positive (.); Morphine Negative (Cutoff=100); Opiates Positive (.)
== END 2023-12-22 09:05 | disposition home or self-care (01) ==
LOC: SC.PAINP 08:25
PROVIDERS: PCP Family Medicine; Visit Provider Nurse Anesthetist, Certified Registered
DX: M51.16 Intervertebral disc disorders with radiculopathy, lumbar region (principal); M96.1 Postlaminectomy syndrome, not elsewhere classified; M46.1 Sacroiliitis, not elsewhere classified; Z97.8 Presence of other specified devices; Z45.1 Encounter for adjustment and management of infusion pump
CPT/HCPCS: 80307; 80361; 80365; 95991; G0480

== ENCOUNTER 2024-02-09 10:49 | Day surgery (SDC) | payer MEDICARE, SELFPAY ==
[2024-02-09 11:21] VITALS: BP 134/77; PULSE 94; RESP 18; TEMP 36.7; O2SAT 98; BMI 30.1
[2024-02-09 11:38] VITALS: BP 128/63; PULSE 96; RESP 18; O2SAT 93
[2024-02-09 11:39] VITALS: BP 128/63; PULSE 96; RESP 18; O2SAT 96
[2024-02-09 11:46] VITALS: BP 118/71; PULSE 74; RESP 18; O2SAT 95
--- NOTE | 2024-02-09 11:53 | P.PCN_ITS ---
Procedure Date: 02/09/24 Time: 11:50 Anesthesiologist:: Andrew Zimmer CRNA Complications:: None Pre-procedure Diagnosis:: Degenerative disc lumbar spine multilevels. Lumbar radiculopathy. Lumbar postlaminectomy syndrome. Post-procedure Diagnosis:: Same. Indications for Procedure:: Patient is a very pleasant 58-year-old male comes our clinic today for intrathecal interrogation and refill. Patient currently being managed with Dilaudid 15 mg/mL at a rate of 4.18 mg/day. He is doing very well with his current settings. He reports today bilateral knee pain. We have injected both knees in the past with significant improvement. However, is been over 6 months since last injection. He reports bilateral knee pain with flexion, extension. Also, pain increases with standing and/or ambulation. Procedure Details:: Details of the procedure explained to the patient. The patient taken the procedure room placed in the sitting position. The area over the pump was cleansed using chlorhexidine as a cleansing solution. The pump was inte rrogated. The pump was accessed with ease using a 22-gauge inch and half needle. 6 mL of solution was withdrawn discarded appropriately. The pump was then filled with 20 cc of a solution containing hydromorphone 15 mg/mL. Patient tolerated procedure without difficulty. There are no complications. Plan and Disposition:: Patient was discharged without incident.
== END 2024-02-09 11:46 | disposition home or self-care (01) ==
PROVIDERS: PCP Family Medicine; Visit Provider Nurse Anesthetist, Certified Registered
DX: M51.16 Intervertebral disc disorders with radiculopathy, lumbar region (principal); M96.1 Postlaminectomy syndrome, not elsewhere classified; Z97.8 Presence of other specified devices; Z45.1 Encounter for adjustment and management of infusion pump
CPT/HCPCS: 95991

== ENCOUNTER 2024-03-01 12:58 | Day surgery (SDC) | payer MEDICARE, SELFPAY ==
[2024-03-01 13:15] VITALS: BP 157/65; PULSE 60; RESP 18; TEMP 36.8; O2SAT 94; BMI 31.1
[2024-03-01 13:20] VITALS: BP 127/74; PULSE 85; RESP 18; O2SAT 98
[2024-03-01] MEDS: BUPIVACAINE 0.25% 10ML INJ 25 MG IJ (13:20)
[2024-03-01] MEDS: LIDOCAINE 1% 5ML PF VIAL 5 ML (13:20)
[2024-03-01] MEDS: methylPREDNISolone ACETATE 80MG/ML VIAL 80 MG (13:20)
[2024-03-01 13:23] VITALS: BP 127/74; PULSE 85; RESP 18; O2SAT 98
--- NOTE | 2024-03-01 13:25 | EXP.PAIN.PRO ---
Procedure Date: 03/01/24 Time: 12:30 Anesthesiologist:: Andrew Zimmer CRNA Complications:: None Pre-procedure Diagnosis:: DJD bilateral knees. Chronic bilateral knee pain. Chronic lumbar back pain. Lumbar postlaminectomy syndrome. Bilateral hip and leg radicular symptoms. Post-procedure Diagnosis:: Same. Indications for Procedure:: Patient is a very pleasant 58-year-old male comes our clinic today for bilateral intra-articular knee injections. Patient reports bilateral knee pain increases with standing and or ambulation. He rates pain 6/10. Patient has had the bilateral knees injected in the past with significant improvement terms of his overall functionality. Patient also asking for increase today in intrathecal pain pump due to the increased pain in his low back. We will increase his intrathecal pain pump by 20%. He is currently being managed with Dilaudid 15 mg/mL at a rate of 4.18 mg/day. Procedure Details:: Details of the procedure explained to the patient. The patient taken the procedure room placed in the sitting position. The area over the knee was cleaned using chlorhexidine as a cleansing solution. Using a 23-gauge inch and half needle the left knee was accessed at the lateral condyle fossa. At this time after negative aspiration 6 cc of solution containing 0.25% Marcaine +1% lidocaine and 40 mg of Depo-Medrol was injected. The same procedure was carried out in the same manner in the right knee. Patient tolerated procedure without difficulty. There are no complications. Details of the procedure were explained to the patient. The patient taken the procedure room placed in the sitting position. The pump was interrogated. The pump was increased by 20%. The new rate will be 5.010 mg/day. Plan and Disposition:: Patient was discharged without incident.
[2024-03-01 13:30] VITALS: BP 129/75; PULSE 86; RESP 18; O2SAT 94
== END 2024-03-01 13:30 | disposition home or self-care (01) ==
PROVIDERS: PCP Family Medicine; Visit Provider Nurse Anesthetist, Certified Registered
DX: M17.0 Bilateral primary osteoarthritis of knee (principal); M25.561 Pain in right knee; M25.562 Pain in left knee; G89.29 Other chronic pain; M54.50 Low back pain, unspecified; M96.1 Postlaminectomy syndrome, not elsewhere classified; Z97.8 Presence of other specified devices; Z45.1 Encounter for adjustment and management of infusion pump
CPT/HCPCS: 20610; 62368; J1010

== ENCOUNTER 2024-03-16 14:56 | Outpatient (POV) | payer MEDICARE, SELFPAY ==
[2024-03-16 15:02] VITALS: BP 142/78; PULSE 74; RESP 18; BMI 31.1
--- NOTE | 2024-03-16 15:38 | EXP.PAIN.SOA ---
[facility] Pain Management SOAP Note Subjective:: Patient is a pleasant 58-year-old male who presents today for follow-up of bilateral intra-articular knee injections on 03/01/2024. Today he rates his pain a 7 out of 10. Patient denies any new trauma or injury. He does state that he did get approximately 70 to 80% relief following these injections however he then did drive to [place] on his bike and the ride down was no problem however coming back seem to really aggravate the symptoms. Patient does state that he feels like he is at his baseline with constant throbbing and popping into his bilateral knees. Patient does state the pain interferes with his ability perform activities of daily living such as cooking and cleaning. 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 Patient states he is still using this cream with some improvement. Patient is currently managed with intrathecal Dilaudid 15 mg/mL with a daily rate of 4.18 mg/day. He denies any problems with this medication. His Cyril has been reviewed and is appropriate. Review of Systems: General: No recent weight changes, no fever, no sleep disturbances Respiratory: No cough, no shortness of air, no recurring pulmonary infections Cardiovascular/peripheral vascular: No chest pain, no palpitations, no edema, no shortness of breath Gastrointestinal: No new onset incontinence, normal bowel movements reported Genitourinary: No new onset incontinence Musculoskeletal: Bilateral knee pain Psychiatric: [Normal mood/affect] Neurological: [Denies weakness in extremities], [denies balance issues] Objective:: Physical Exam: General: Alert and oriented x3, no acute distress, pleasant and cooperative Lungs: Respirations even and unlabored, symmetrical chest expansion Eyes: PERRL Musculoskeletal: Flexion and extension of bilateral knees somewhat guarded secondary to pain, [antalgic gait noted] crepitus noted to his left knee Neurological: Speech clear, no gross sensory deficit Assessment:: Degenerative disc disease of lumbar spine with lumbar radiculopathy symptoms, lumbar postlaminectomy syndrome, bilateral knee pain Plan:: Patient is experiencing worsening pain throughout his bilateral knees following a motorcycle drive to and from [place]. Patient has had significant improvement from intra-articular injections of upwards of 70 to 80%. I have discussed with the patient in future he may benefit from additional intra-articular injections. Risk and benefits were discussed with the patient and he would like to proceed forward with this plan of care. We will schedule the patient for intra-articular knee injections. Patient has continued at home stretching exercise for longer than 6 weeks as well as continuing these exercises between injections with minimal relief. Patient has been instructed to contact the clinic with any concerns before the next appointment. Dr. Schwartz has reviewed this note and agrees with this plan of care. This note was dictated using voice recognition software and make contain errors or omissions. [facility] Disclaimer: The information contained in this section may have been updated after the patient was seen, as this information can be updated by other users. Medical History COPD (chronic obstructive pulmonary disease) Anxiety Rotator cuff arthropathy of both shoulders Surgical History History of repair of left rotator cuff History of repair of right rotator cuff History of cholecystectomy Family History Other No significant family history Social History Smoking Status: Current some day smoker tobacco type: smokeless tobacco second hand exposure: No alcohol intake: never substance use type: denies use current occupational status: employed Travel in the last 8 weeks: None household members: spouse housing: house current occupational exposures/hazards: No caffeine: Yes
== END 2024-03-16 23:59 | disposition home or self-care (01) ==
LOC: SC.PAIN 14:58
PROVIDERS: PCP Family Medicine; Visit Provider Nurse Practitioner Family
DX: M51.16 Intervertebral disc disorders with radiculopathy, lumbar region (principal); M96.1 Postlaminectomy syndrome, not elsewhere classified; M25.561 Pain in right knee; M25.562 Pain in left knee
CPT/HCPCS: 99212; G0463

== ENCOUNTER 2024-03-29 10:58 | Day surgery (SDC) | payer MEDICARE, SELFPAY ==
[2024-03-29 11:15] VITALS: BP 131/72; PULSE 86; RESP 18; TEMP 36.8; O2SAT 97; BMI 31.1
[2024-03-29 11:43] VITALS: BP 111/58; PULSE 76; RESP 18; O2SAT 95
[2024-03-29 11:44] VITALS: BP 111/58; PULSE 80; RESP 18; O2SAT 95
[2024-03-29 11:45] VITALS: BP 131/72; PULSE 70; RESP 18; O2SAT 98
--- NOTE | 2024-03-29 11:57 | EXP.PAIN.PRO ---
Procedure Date: 03/29/24 Time: 11:30 Anesthesiologist:: Andrew Zimmer CRNA Complications:: None Pre-procedure Diagnosis:: Degenerative disc lumbar spine multilevels. Lumbar radiculopathy. Lumbar postlaminectomy syndrome. Post-procedure Diagnosis:: Same. Indications for Procedure:: Patient is a very pleasant 58-year-old male comes our clinic today for intrathecal pain pump interrogation refill. He is currently being managed with Dilaudid 15 mg/mL at a rate of 5 mg/day. He is doing very well with his current settings. He does not request any changes. He is not reporting side effects or complications with his intrathecal pain pump management. He rates his pain today 3/10. Procedure Details:: Details of the procedure explained to the patient. The patient stated procedure room patient sitting position. The area of the pump is cleansed using chlorhexidine's cleansing solution. The pump was interrogated. The pump was accessed with ease using a 22-gauge inch and half needle. 4 mL of solution was withdrawn and discarded appropriate. The pump was then filled with 20 cc of solution containing Dilaudid 15 mg/mL. The rate will continue at 5 mg/day. Patient tolerated procedure without difficulty. No complications. Plan and Disposition:: Patient was discharged without incident.
[2024-03-29 12:40] LABS: Barbiturates Screen,Urine Negative ng/ml (<200)
[2024-03-29 12:41] LABS: Benzodiazepines Screen,Urine Negative ng/ml (<200)
[2024-03-29 12:42] LABS: Amphetamine/Metha Screen,Urine Negative ng/ml (<1000); Cannabinoid Screen,Urine Negative ng/ml (<50)
[2024-03-29 12:43] LABS: Cocaine Screen,Urine Negative ng/ml (<300); Methadone Screen,Urine Negative ng/ml (<300)
[2024-03-29 12:44] LABS: Opiate Screen,Urine Positive ng/ml (<300)
[2024-03-29 12:45] LABS: Phencyclidine Screen,Urine Negative ng/ml (<25)
== END 2024-03-29 11:50 | disposition home or self-care (01) ==
PROVIDERS: Anesthesiology; PCP Family Medicine; Visit Provider Nurse Anesthetist, Certified Registered
DX: M51.16 Intervertebral disc disorders with radiculopathy, lumbar region (principal); M96.1 Postlaminectomy syndrome, not elsewhere classified; Z97.8 Presence of other specified devices; Z45.1 Encounter for adjustment and management of infusion pump
CPT/HCPCS: 80307; 80361; 80365; 95991; G0480

== ENCOUNTER 2024-04-05 11:09 | Day surgery (SDC) | payer MEDICARE, SELFPAY ==
[2024-04-05 11:31] VITALS: BP 110/75; PULSE 98; RESP 18; TEMP 36.6; O2SAT 96; BMI 31.1
--- NOTE | 2024-04-05 11:34 | EXP.PAIN.PRO ---
Procedure Date: 04/05/24 Time: 11:30 Anesthesiologist:: Andrew Zimmer CRNA Complications:: None Pre-procedure Diagnosis:: DJD bilateral knees. Chronic bilateral knee pain. Post-procedure Diagnosis:: Same. Indications for Procedure:: Patient is a pleasant 58-year-old male comes our clinic today for bilateral intra-articular knee injections. Patient has had chronic bilateral knee pain for several years. Patient had bilateral intra-articular knee injections 6 weeks ago. I discussed in detail with the patient regarding the need for orthopedic consultation regarding his bilateral chronic knee pain. We will get this set up for him at his follow-up visit. He describes the bilateral knees as constant, dull, aching pain. Pain intensifies with ambulation. He rates his pain 7/10. Procedure Details:: Procedure Details: Bilateral intra-articular knee injection Informed consent was obtained risk and benefits of the procedure were explained to the patient. Patient was taken the procedure room both knees were prepped using ChloraPrep. A 25-gauge needle was used to inject 10 mL bupivacaine 0.25% and Depo-Medrol 40 mg into each knee. We did a total of 80 mg Depo-Medrol for both knees. The patient tolerated the procedure well with no complications. Plan and Disposition:: Patient was discharged without incident.
[2024-04-05] MEDS: LIDOCAINE 1% 5ML PF VIAL 5 ML (11:35)
[2024-04-05] MEDS: methylPREDNISolone ACETATE 80MG/ML VIAL 80 MG (11:35)
[2024-04-05] MEDS: BUPIVACAINE 0.25% 10ML INJ 25 MG IJ (11:35)
[2024-04-05 11:36] VITALS: BP 110/78; PULSE 84; RESP 18; O2SAT 97
[2024-04-05 11:37] VITALS: BP 110/78; PULSE 84; RESP 18; O2SAT 97
[2024-04-05 11:39] VITALS: BP 123/81; PULSE 81; RESP 18; O2SAT 96
== END 2024-04-05 11:39 | disposition home or self-care (01) ==
PROVIDERS: PCP Family Medicine; Visit Provider Nurse Anesthetist, Certified Registered
DX: M17.0 Bilateral primary osteoarthritis of knee (principal); M25.561 Pain in right knee; M25.562 Pain in left knee; G89.29 Other chronic pain
CPT/HCPCS: 20610; J1010

== ENCOUNTER 2024-04-21 13:39 | Outpatient (POV) | payer MEDICARE, SELFPAY ==
[2024-04-21 13:47] VITALS: BP 125/79; PULSE 92; RESP 16; O2SAT 96; BMI 31.1
--- NOTE | 2024-04-21 14:18 | EXP.PAIN.SOA ---
[facility] Pain Management SOAP Note Subjective:: Patient is a pleasant 58-year-old male who presents today for follow-up of bilateral intra-articular knee injections on 04/05/2024. Today he rates his pain a 8 out of 10. Patient denies any new trauma or injury. He states that he did get significant relief following this injection of more than 50% however it only really lasted 2 days. Patient states that he is back to his baseline and has the constant pain with the right knee being worse than the left. Patient denies any recent advanced imaging. He states that when they had talked about doing imaging they talk like that he did have to take out his pump medication and then it would be about a day before they could put it back in. Patient states he would not be able to tolerate this and did not proceed forward. Patient denies ever seeing a orthopedic provider for his knee pain. Patient does state the pain interferes with his ability perform activities of daily living such as cooking and cleaning. He states he is still using the nervive cream to help with more so his left knee and low back and it does not seem to work as well on the right. He says that the right knee frequently feels like it is getting give out and fall. He is using a brace during today's visit. Patient is currently managed with intrathecal Dilaudid 15 mg/mL with a daily rate of 4.18 mg/day. He denies any problems with this medication. His Cyril has been reviewed and is appropriate. Review of Systems: General: No recent weight changes, no fever, no sleep disturbances Respiratory: No cough, no shortness of air, no recurring pulmonary infections Cardiovascular/peripheral vascular: No chest pain, no palpitations, no edema, no shortness of breath Gastrointestinal: No new onset incontinence, normal bowel movements reported Genitourinary: No new onset incontinence Musculoskeletal: Bilateral knee pain Psychiatric: [Normal mood/affect] Neurological: [Denies weakness in extremities], [denies balance issues] Objective:: Physical Exam: General: Alert and oriented x3, no acute distress, pleasant and cooperative Lungs: Respirations even and unlabored, symmetrical chest expansion Eyes: PERRL Musculoskeletal: Flexion and extension of bilateral knees somewhat guarded secondary to pain, [antalgic gait noted] Neurological: Speech clear, no gross sensory deficit Assessment:: Degenerative disc disease of lumbar spine with lumbar radiculopathy symptoms, bilateral knee pain Plan:: Patient continues to experience significant pain throughout his bilateral knees. I will order an MRI without contrast of his bilateral knees. Patient was counseled that if we have any difficulty getting both knees done that we will do the right first. I have also discussed that we will plan on sending him for referral to orthopedics once we have this advanced imaging. Patient has tried and failed conservative therapy including continued at home exercising and stretching for longer than 6 weeks. Patient will return to clinic in 1 month for reevaluation of symptoms and plan of care. I have counseled the patient that we will try and schedule him for MRI on a Thursday where we can remove the pump medication in the procedure area and then have him return right back after imaging to have the pump refilled. We will see the patient back in the clinic at the next intrathecal refill. Patient has been instructed to contact the clinic with any concerns before the next appointment. Dr. Schwartz has reviewed this note and agrees with this plan of care. This note was dictated using voice recognition software and make contain errors or omissions. -- It Is medically necessary for this patient to continue to have their intrathecal pump refilled at regular intervals. This patient had an intrathecal pain pump implanted after meeting criteria of chronic intractable pain for greater than 3 months and failing conservative treatments. Patient has committed and been compliant to the treatment plan and all planned follow up care. Since implantation of the intrathecal pain pump, the patient has had decreased pain and been more functional. Oral medications have been reduced including intake of oral opioids. Patient continues to do well with intrathecal therapy with decrease in pain symptoms and increase in functional status. Stopping intrathecal medications can lead to life threatening withdrawal, seizures, cardiac arrest, severe pain, and possible . Pumps that are not refilled at regular intervals can be damages and cause and need for replacement. We continually titrate dose and concentration to optimize pain relief and function. We are limited in concentration for certain drugs to safely deliver medications through the pump and stay within the recommendations from the Polyanalgesic Consensus Committee Guidelines. Depending on dose and concentration these pumps may need to be refilled sooner than 3 months as we titrate. [facility] Disclaimer: The information contained in this section may have been updated after the patient was seen, as this information can be updated by other users. Medical History COPD (chronic obstructive pulmonary disease) Anxiety Rotator cuff arthropathy of both shoulders Surgical History History of repair of left rotator cuff History of repair of right rotator cuff History of cholecystectomy Family History Other No significant family history Social History Smoking Status: Current some day smoker tobacco type: smokeless tobacco second hand exposure: No alcohol intake: never substance use type: denies use current occupational status: other Travel in the last 8 weeks: None household members: spouse housing: house current occupational exposures/hazards: No caffeine: Yes
== END 2024-04-21 23:59 | disposition home or self-care (01) ==
LOC: SC.PAIN 13:40
PROVIDERS: PCP Family Medicine; Visit Provider Nurse Practitioner Family
DX: M51.16 Intervertebral disc disorders with radiculopathy, lumbar region (principal); M25.561 Pain in right knee; M25.562 Pain in left knee; Z97.8 Presence of other specified devices
CPT/HCPCS: 99212; G0463

== ENCOUNTER 2024-05-17 08:12 | Day surgery (SDC) | payer MEDICARE, SELFPAY ==
--- NOTE | 2024-05-17 | MR_ITS ---
FINAL REPORT TECHNIQUE: Multiplanar and multisequence imaging the left knee was obtained without contrast. CLINICAL HISTORY: BILATERAL KNEE PAIN. FINDINGS: Bones: There is no acute fracture or marrow edema. The joint space is preserved. There are no full thickness cartilage defects. Menisci: No meniscal tear is present. Ligaments: No cruciate or collateral ligament tear is present. Tendons/Muscles: The quadriceps and patellar tendons are within normal limits. The biceps femoris tendon and iliotibial tract are intact. The popliteus tendon is normal. Other: There is no joint effusion. Remaining soft tissues are normal. IMPRESSION: No acute osseous abnormality, meniscal tear, or ligament tear. No supporting structure injury. Reviewed, Interpreted and Dictated by Taina Franco MD Transcribed by Margaret Navarrete Authenticated and [facility]
--- NOTE | 2024-05-17 | MR_ITS ---
FINAL REPORT TECHNIQUE: Multiplanar and multisequence imaging the right knee was obtained without contrast. CLINICAL HISTORY: BILAT KNEE PAIN FINDINGS: Bones: There is no acute fracture or marrow edema. The joint space is preserved. There are no full thickness cartilage defects. Menisci: No meniscal tear is present. Ligaments: No cruciate or collateral ligament tear is present. Tendons/Muscles: The quadriceps and patellar tendons are within normal limits. The biceps femoris tendon and iliotibial tract are intact. The popliteus tendon is normal. Other: There is no joint effusion. Remaining soft tissues are normal. IMPRESSION: No acute osseous abnormality, meniscal tear, or ligament tear. No supporting structure injury. Reviewed, Interpreted and Dictated by Taina Franco MD Transcribed by Margaret Navarrete Authenticated and [facility]
[2024-05-17 08:28] VITALS: BP 118/72; PULSE 95; RESP 18; TEMP 36.4; O2SAT 94; BMI 30.1
[2024-05-17 08:35] VITALS: BP 108/80; PULSE 92; RESP 18; O2SAT 95
[2024-05-17 08:37] VITALS: BP 108/80; PULSE 86; RESP 18
[2024-05-17 11:28] VITALS: BP 120/81; PULSE 77; RESP 18; O2SAT 97
[2024-05-17 11:30] VITALS: BP 120/81; PULSE 77; RESP 18; O2SAT 97
[2024-05-17 11:35] VITALS: BP 118/72; PULSE 95; RESP 18; TEMP 36.4; O2SAT 98
--- NOTE | 2024-05-17 11:41 | P.PCN_ITS ---
Procedure Date: 05/17/24 Time: 09:00 Anesthesiologist:: Andrew Zimmer CRNA Complications:: None Pre-procedure Diagnosis:: Degenerative disc lumbar spine multilevels. Lumbar radiculopathy. Lumbar postlaminectomy syndrome. Post-procedure Diagnosis:: Same. Indications for Procedure:: Patient is a pleasant 58-year-old male comes our clinic today for intrathecal pain pump interrogation and refill. He is currently being managed with Dilaudid 15 mg/mL at a rate of 5.0100 mg/day. He is doing very well with his current settings. He is not reporting any side effects. He rates his pain 2/10. Procedure Details:: Details of the procedure explained to the patient. The patient taken procedure and placed in sitting position. They over the pumps cleansed using chlorhexidine's cleansing solution. The pump was interrogated. The pump was ac cessed with ease using a 22-gauge inch and half needle. 6 mL of solution was withdrawn discarded appropriately. The pump was then filled with 20 cc of a solution containing Dilaudid 15 mg/mL. The rate will continue as before at 5.0100 mg/day. Patient tolerated procedure without difficulty. There are no complications. Plan and Disposition:: Patient was discharged without incident.
== END 2024-05-17 11:38 | disposition home or self-care (01) ==
LOC: SC.PAINP 08:13 → RAD 09:04
PROVIDERS: PCP Family Medicine; Visit Provider Nurse Practitioner Family
DX: M51.16 Intervertebral disc disorders with radiculopathy, lumbar region (principal); M96.1 Postlaminectomy syndrome, not elsewhere classified
CPT/HCPCS: 73721; 95991

== ENCOUNTER 2024-05-25 13:46 | Outpatient (POV) | payer MEDICARE, SELFPAY ==
--- NOTE | 2024-05-25 14:15 | P.PCN_ITS ---
Procedure Date: 05/25/24 Time: 14:16 Anesthesiologist:: Maranda Mariee APRN Complications:: None Pre-procedure Diagnosis:: Degenerative disc disease of lumbar spine with lumbar radiculopathy symptoms, lumbar postlaminectomy syndrome, bilateral knee pain Post-procedure Diagnosis:: Same Indications for Procedure:: Patient is a pleasant 58-year-old male who presents today for intrathecal adjustment and reprogram as well as follow-up of bilateral knee MRIs. Today he rates his pain a 6 out of 10. Patient denies any new trauma or injury. He does state that he continues to have chronic pain in his low back however states his knee pain continues to be worse. Patient denies any new injury or trauma. Patient did previously have intra-articular knee injections that did provide 50% relief however it was only temporary that it gave improvement. Patient does state the pain is constant and interferes with his ability perform activities of daily living. Patient states that does Have popping and catching sensations in both of his knees. He has been using his nerve V cream along with using knee braces that do help. Patient does have a intrathecal pain pump of Dilaudid 50 mg/mL with a daily dose of 5.01 mg/day. He denies any side effects from this medication. Patient has had a previous spinal cord stimulator in the past that he states was about 9 years ago. Patient states he did not get significant relief with this device and had a bad experience with the placement in the OR. He states this was done by a provider in [place] and so he is hesitant about trying it again. His Cyril has been reviewed and is appropriate. Physical Exam: General: Alert and oriented x3, no acute distress, pleasant and cooperative Lungs: Respirations even and unlabored, symmetrical chest expansion Eyes: PERRL Musculoskeletal: Flexion and extension of bilateral knees somewhat guarded seco ndary to pain, [antalgic gait noted] Neurological: Speech clear, no gross sensory deficit Procedure Details:: Informed consent was obtained and the risk and benefits of the procedure were explained to the patient. Patient was taken to the procedure room where noninvasive monitoring was placed including noninvasive blood pressure cuff and pulse oximeter. Patient's pump was interrogated and was reprogrammed to Dilaudid 5.511 mg/day. The patient tolerated the procedure well with no complications. Plan and Disposition:: Patient tolerated his intrathecal increase with no complications and was discharged neurologically intact. I did review over his bilateral knee MRIs and that they did have no acute findings. I did discuss with the patient that there are other options for his knee pain however I did not believe he would be a candidate for knee replacement at this time. Patient was discussed regarding gel injection and he is interested in this option. I have counseled him that we will send a referral over to Ra Mariee's office for possible evaluation for the gel. Patient is agreeable to this. Patient will return to clinic for his next intrathecal refill and reprogram. We will see the patient back in the clinic at the next intrathecal refill. Patient has been instructed to contact the clinic with any concerns before the next appointment. Dr. Schwartz has reviewed this note and agrees with this plan of care. This note was dictated using voice recognition software and make contain errors or omissions. -- It Is medically necessary for this patient to continue to have their intrathecal pump refilled at regular intervals. This patient had an intrathecal pain pump implanted after meeting criteria of chronic intractable pain for greater than 3 months and failing conservative treatments. Patient has committed and been compliant to the treatment plan and all planned follow up care. Since implantation of the intrathecal pain pump, the patient has had decreased pain and been more functional. Oral medications have been reduced including intake of oral opioids. Patient continues to do well with intrathecal therapy with decrease in pain symptoms and increase in functional status. Stopping intrathecal medications can lead to life threatening withdrawal, seizures, cardiac arrest, severe pain, and possible . Pumps that are not refilled at regular intervals can be damages and cause and need for replacement. We continually titrate dose and concentration to optimize pain relief and function. We are limited in concentration for certain drugs to safely deliver medications through the pump and stay within the recommendations from the Polyanalgesic Consensus Committee Guidelines. Depending on dose and concentration these pumps may need to be refilled sooner than 3 months as we titrate.
[2024-05-25 14:46] VITALS: BP 123/70; PULSE 102; RESP 18; O2SAT 95; BMI 30.1
--- NOTE | 2024-05-26 09:11 | PC.NURSE ---
per Reese, [employer] request pt referred to Dr. Ra Mariee (ortho) for knee gel injections. Contacted their office to obtain appointment time. Notified Pt via phone of appt time 06/01/24 at 11am. Pt given ortho office phone number in case he needed to make changes to appt.
== END 2024-05-25 23:59 | disposition home or self-care (01) ==
PROVIDERS: PCP Family Medicine; Visit Provider Nurse Practitioner Family
DX: G89.29 Other chronic pain (principal); M51.36 Other intervertebral disc degeneration, lumbar region; M54.16 Radiculopathy, lumbar region; M96.1 Postlaminectomy syndrome, not elsewhere classified; M25.561 Pain in right knee; M25.562 Pain in left knee
CPT/HCPCS: 62368; 99213; G0463

== ENCOUNTER 2024-06-01 10:36 | Outpatient (CLI) | payer MEDICARE, SELFPAY ==
--- NOTE | 2024-06-01 10:40 | XR_ITS ---
FINAL REPORT CLINICAL HISTORY: lt knee pain FINDINGS: Left knee Three views were obtained. There is no acute fracture or dislocation. The joint spaces appear normal. No soft tissue abnormality is identified. IMPRESSION: No acute process. Reviewed, Interpreted and Dictated by Leon Ness MD Transcribed by Margaret Navarrete Authenticated and [facility]
--- NOTE | 2024-06-01 10:40 | XR_ITS ---
FINAL REPORT CLINICAL HISTORY: Rt Knee Pain FINDINGS: Right knee Three views were obtained. There is no acute fracture or dislocation. The joint spaces appear normal. No soft tissue abnormality is identified. IMPRESSION: No acute process. Reviewed, Interpreted and Dictated by Leon Ness MD Transcribed by Margaret Navarrete Authenticated and [facility]
== END 2024-06-01 23:59 | disposition home or self-care (01) ==
LOC: RAD 10:37
PROVIDERS: PCP Family Medicine; Visit Provider Physician Assistant
DX: M25.562 Pain in left knee (principal); M25.561 Pain in right knee
CPT/HCPCS: 73562

== ENCOUNTER 2024-06-28 08:58 | Day surgery (SDC) | payer MEDICARE, SELFPAY ==
[2024-06-28 09:21] VITALS: BP 96/71; PULSE 89; RESP 16; TEMP 36.3; O2SAT 95; BMI 31.1
[2024-06-28 09:37] VITALS: BP 116/72; PULSE 81; RESP 18; O2SAT 97
[2024-06-28 09:38] VITALS: BP 116/72; PULSE 81; RESP 18; O2SAT 97
--- NOTE | 2024-06-28 09:47 | EXP.PAIN.PRO ---
Procedure Date: 06/28/24 Time: 09:35 Anesthesiologist:: Andrew Zimmer CRNA Complications:: None Pre-procedure Diagnosis:: Degenerative disc lumbar spine multilevels. Lumbar radiculopathy. Lumbar postlaminectomy syndrome. Lumbar spondylosis. Post-procedure Diagnosis:: Same. Indications for Procedure:: Patient is a very pleasant 58-year-old male that comes our clinic today for intrathecal pain pump interrogation and refill. He is currently being managed with hydromorphone 15 mg/mL at a rate of 5.5110 mg today. He is doing very well with his current settings. He is not really reporting any side effects or complications. He is not requesting any changes. Patient is awake alert [place] x 3. No acute distress. Flexion-extension lumbar spine somewhat guarded secondary to pain. Deep tendon reflexes upper and lower extremities normal. Motor strength upper and lower extremities normal. There is no gross sensory deficit. Gait is normal. Procedure Details:: Details of the procedure explained to the patient. The patient taken procedure room patient sitting position. The area of the puncture cleansed using chlorhexidine as a cleansing solution. The pump was interrogated. The pump was accessed with ease using a 22-gauge inch and half needle. 4.5 mL of solution was withdrawn and discarded appropriately. The pump was then filled with 20 cc of solution containing hydromorphone 15 mg/mL. The rate will continue at 5.5110 mg/day. Patient tolerated the procedure without difficulty. There are no complications. Plan and Disposition:: Patient was discharged without incident.
[2024-06-28 09:48] VITALS: BP 110/74; PULSE 78; RESP 16; O2SAT 96
== END 2024-06-28 09:48 | disposition home or self-care (01) ==
PROVIDERS: PCP Family Medicine; Visit Provider Nurse Anesthetist, Certified Registered
DX: M51.36 Other intervertebral disc degeneration, lumbar region (principal); M96.1 Postlaminectomy syndrome, not elsewhere classified; M47.816 Spondylosis without myelopathy or radiculopathy, lumbar region
CPT/HCPCS: 95991

== ENCOUNTER → 2024-08-02 09:00 | Day surgery (SDC) | payer MEDICARE, SELFPAY ==
[2024-08-02 09:20] VITALS: BP 119/70; PULSE 84; RESP 16; TEMP 36.4; O2SAT 96; BMI 30.9
[2024-08-02 09:34] VITALS: BP 108/72; PULSE 83; RESP 18; O2SAT 98
[2024-08-02 09:36] VITALS: BP 108/72; PULSE 83; RESP 18; O2SAT 98
--- NOTE | 2024-08-02 09:41 | EXP.PAIN.PRO ---
Procedure Date: 08/02/24 Time: 09:30 Anesthesiologist:: Andrew Zimmer CRNA Complications:: None Pre-procedure Diagnosis:: Degenerative disc lumbar spine multilevels. Lumbar radiculopathy. Lumbar postlaminectomy syndrome. Lumbar spondylosis. Post-procedure Diagnosis:: Same. Indications for Procedure:: Patient is a very pleasant 58-year-old male who comes our clinic today for intrathecal pain pump interrogation refill. Patient currently being managed with intrathecal hydromorphone 15 mg/mL at a rate of 5.5110 mg today. He is doing very well with his current settings. He is not requesting any changes. He is not reporting side effects or complications. Patient is awake alert [place] x 3. In no acute distress. Flexion-extension lumbar spine somewhat guarded secondary to pain. Deep tendon reflexes upper lower extremities normal. Motor strength upper and lower extremities normal. There is no gross sensory deficit. Gait is normal. Procedure Details:: Details of the procedure explained to the patient. The patient taken procedure and placed in sitting position. They over the pumps cleansed using chlorhexidine as a cleansing solution. The pump was interrogated. The pump was accessed with ease using a 22-gauge inch and half needle. 8 mL of solution was withdrawn discarded appropriate. The pump was then filled with 20 cc of solution containing hydromorphone 15 mg/mL. There will be no change in intrathecal pain pump rate. Patient tolerated procedure without difficulty. There are no complications. Plan and Disposition:: Patient was discharged without incident.
== END | disposition home or self-care (01) ==
PROVIDERS: PCP Family Medicine; Visit Provider Nurse Anesthetist, Certified Registered
DX: M51.16 Intervertebral disc disorders with radiculopathy, lumbar region (principal); M96.1 Postlaminectomy syndrome, not elsewhere classified; M47.26 Other spondylosis with radiculopathy, lumbar region
CPT/HCPCS: 95991

== ENCOUNTER 2024-08-09 13:30 | Outpatient (CLI) | payer MEDICARE, SELFPAY ==
--- NOTE | 2024-08-09 14:16 | ECG_ITS ---
APPROVED REPORT Exam: Resting ECG HR:82 bpm ECG Measurements Heart Rate 82 AXES PA 178 P 19 QRSd 106 QRS 63 QT 361 T 52 QTc 400 Conclusion SINUS RHYTHM NORMAL ECG UNCONFIRMED REPORT Electronically signed by : Gregory Robertson MD 08/18/2024 16:11:11
[2024-08-09 15:04] LABS: Basophils # 0.1 K/mm3 (0-0.2); Basophils % 0.8 % (0.1-2.0); Eosinophils # 0.1 K/mm3 (0.0-0.4); Hematocrit 42.5 % (42.0-52.0); Hemoglobin 15.1 g/dL (14.1-18.0); Lymphocytes # 1.6 K/mm3 (0.7-4.5); Mean Corpuscular HGB Conc 35.5 g/dL (31.8-35.4); Mean Corpuscular Hemoglobin 30.1 pg (27.0-31.2); Mean Corpuscular Volume 84.8 fl (80-94); Mean Platelet Volume 8.1 fl (7.4-10.4); Monocytes # 0.2 K/mm3 (0.1-1.0); Monocytes % 4.1 % (1.7-9.3); Neutrophils # 3.9 K/mm3 (1.8-7.8); Neutrophils % 67.2 % (37.0-80.0); Platelet Count 171 K/mm3 (142-424); Red Blood Count 5.01 M/mm3 (4.60-6.20); Red Cell Distribution Width 13.7 % (11.5-17.5); White Blood Count 5.8 K/mm3 (4.8-10.8)
[2024-08-09 15:05] LABS: Albumin Level 4.6 g/dl (3.5-5.0); Chloride 97 mmol/L (98-107); Potassium 3.9 mmoL/L (3.5-5.1); Sodium 133 mmol/L (136-145)
[2024-08-09 15:08] LABS: Alanine Aminotransferase 31 U/L (12-78); Albumin/Globulin Ratio 1.5 (1.1-1.8); Alkaline Phosphatase 171 U/L (38-126); Anion Gap 13.9 mEq/L (5-15); Aspartate Amino Transferase 29 U/L (17-59); Bilirubin,Total 0.8 mg/dl (0.2-1.3); Blood Urea Nitrogen 14 mg/dl (9-20); Calcium 9.4 mg/dl (8.4-10.2); Carbon Dioxide 26 mmol/L (22.0-30.0); Estimated Glomerular Filt Rate 116 ml/min (>60); GFR (African American) 141 ML/MIN (>60); Globulin 3.1 g/dL (1.3-3.2); Glucose 375 mg/dl (74-100); Total Protein,Serum 7.7 g/dl (6.3-8.2)
== END 2024-08-09 23:59 | disposition home or self-care (01) ==
LOC: PREOP 13:31
PROVIDERS: PCP Family Medicine; Visit Provider Anesthesiology
DX: G47.9 Sleep disorder, unspecified (principal)
CPT/HCPCS: 80053; 85025; 93005

== ENCOUNTER 2024-08-12 10:01 | Day surgery (SDC) | payer MEDICARE, SELFPAY ==
[2024-08-09 12:45] VITALS: BMI 30.5
[2024-08-09 14:01] VITALS: BMI 30.9
[2024-08-12] VITALS (7 sets, daily range): BP systolic 114–132; BP diastolic 68–83; PULSE 55–84; RESP 16–18; TEMP 36.4–37.1; O2SAT 94–97
[2024-08-12 10:37] LABS: POC Glucose,Bedside 311 (70-110)
[2024-08-12] MEDS: LACTATED RINGERS 1000ML 1,000 ML 25 ML IV (10:45)
[2024-08-12] MEDS: VANCOMYCIN HCL 2,000 MG in 0.9 % SODIUM CHLORIDE 250 ML 125 MG IV (10:45)
[2024-08-12] MEDS: INSULIN HUMAN REGULAR 100 UNITS/ML 10ML VIAL 500 UNIT (11:05)
--- NOTE | 2024-08-12 11:06 | P.PNANES_ITS ---
[facility] Disclaimer: The information contained in this section may have been updated after the patient was seen, as this information can be updated by other users. Medical History COPD (chronic obstructive pulmonary disease) Anxiety Rotator cuff arthropathy of both shoulders Surgical History History of repair of left rotator cuff History of repair of right rotator cuff History of cholecystectomy Family History Other Family history of diabetes mellitus Family history of heart disease Social History (Updated 08/12/24 @ 10:24 by Angela Ross RN) Smoking Status: Former smoker tobacco type: smokeless tobacco second hand exposure: No alcohol intake: never substance use type: denies use current occupational status: disabled and other Travel in the last 8 weeks: None household members: spouse housing: house current occupational exposures/hazards: No caffeine: Yes [facility] Anesthesia Checklist Patient Identification Patient Identification: Arm Band Structural Data Admitted From: Home Planned Operative Procedure/s: Intrathecal Pain Pump Explant and Implant Consent for Planned Operative Procedure(s) Verified: Yes Verified Documents: Surgical Consent and History and Physical NPO Status Verified Time NPO: 00:00 Additional verifications Anesthesia Reactions: No Hx Blood Transfusions: No Blood Transfusion Reaction: No Airway Assessment Mallampati Score:: Class II C-Spine Mobility Assessed: Yes TMJ Mobility Assessed: Yes Dentition: Good Dentition Neurological Assessment Level of Consciousness: Awake, Alert and Appropriate Anesthesia Plan Anesthesia Risk discussed: Yes Anesthesia Plan: Verified ASA Class: III Anesthesia Type: MAC Preoperative Comments Pre-Operative Comments: Preoperative fsbs 311. 5 units regular insulin IV given. Dr. Schwartz notified and is ok to proceed.
[2024-08-12 11:44] LABS: POC Glucose,Bedside 267 (70-110)
[2024-08-12] MEDS: SODIUM CHLORIDE 0.9% 20ML VIAL 40 ML IV (12:28)
[2024-08-12] MEDS: LIDOCAINE 1% W/EPI 1:100,000 20ML VIAL 40 ML (12:28)
[2024-08-12] MEDS: GENTAMICIN 80 MG/2 ML VIAL (12:28)
[2024-08-12] MEDS: ERYTHROMYCIN BASE 1 GM OINT...G. OP (13:22)
[2024-08-12 13:24] LABS: POC Glucose,Bedside 230 (70-110)
[2024-08-12] MEDS: ACETAMINOPHEN 325MG TAB 650 MG PO (13:45)
[2024-08-12] MEDS: MORPHINE 4MG/ML SYRINGE 4 MG IV (13:50)
--- NOTE | 2024-08-12 14:22 | EXP.OP.NOTE ---
Date of procedure: 08/12/24 Pre-op Diagnosis:: Nonfunctioning intrathecal pain pump system for degenerative disease of lumbar spine with lumbar radiculopathy symptoms Post-op Diagnosis:: Same Procedure performed:: Replacement pain pump system with new tunneled intrathecal catheter replacement pain pump generator Surgeon:: Silvestre Schwartz MD [employer] REFEREE:: Abrahan Wright Anesthesia: MAC Estimated blood loss (mL): 5 Clinical Note:: This patient is a pleasant 58-year-old white male who has an intrathecal hydromorphone pain pump in place. This is a Flowonix system which is nonfunctioning. He presents for replacement of his pain pump system today. Will fill him with hydromorphone 15 mg/mL. We will continue him at 5.5 mg/day and put him on flex dosing. Operative findings:: None Operative note:: Informed consent was obtained risk and benefits of the procedure were explained to the patient. The patient was taken operating room placed prone on the procedure table. He was prepped and draped sterile fashion. C-arm fluoroscopy was used to view the pain pump generator. The skin and subcutaneous tissues overlying the generator were anesthetized using lidocaine. I made an incision dissected out the pain pump generator. I disconnected the catheter and tied off with 0 silk ties x 3. C-arm fluoroscopy was then used to view the lumbar spine. The skin and subcutaneous tissues adjacent to the L4-5 and L5-S1 interspace were anesthetized using lidocaine. I made incision dissected down to the lumbar paraspinous fascia. A 17-gauge spinal needle was inserted and advanced into the L4-5 interspace until clear CSF was obtained. After this intrathecal catheter was inserted and advanced to the T11 vertebral body. We were unable to advance any further because of kinking of the catheter. The catheter was posterior and midline. It was adjacent to his old Flowonix catheter. The stylette of the catheter and the needle were withdrawn. The catheter secured to the fascia with an anchor device and 2-0 Prolene. I filled the pump with 20 mL of intrathecal hydromorphone 15 mg/mL. I tunneled the catheter from the back to the pump pocket and attached catheter to the pump. We are able to freely withdraw clear CSF through the sideport. The pump was then placed in the pocket with an antibiotic pouch. Both incisions were then closed with 2-0 Vicryl followed by 4-0 nylon and liz. The patient tolerated the procedure well with no complications. The pump was interrogated patient was put on flex dosing of 0.4 mg boluses every 2 hours total daily dose is 5.5 mg/day. Patient was discharged home neurologic intact with good relief of pain symptoms. Pain and disposition: We will follow-up with this patient in 1 week for wound check. Will follow-up in 2 to 3 weeks for suture and staple removal. The patient's refill date is 09/29/2024. Condition: stable Disposition: PACU Complications:: None
== END 2024-08-12 13:58 | disposition home or self-care (01) ==
PROVIDERS: PCP Family Medicine; Visit Provider Anesthesiology
PROC: (CPT 62350; principal; 2024-08-12 11:30)
DX: M51.16 Intervertebral disc disorders with radiculopathy, lumbar region (principal); T85.695A Other mechanical complication of other nervous system device, implant or graft, initial encounter
CPT/HCPCS: 62350; 62362; 82962; 96374; C1755; C1772; J1580; J2250; J2270; J2704; J3370; J7120

== ENCOUNTER 2024-08-17 08:36 | Outpatient (POV) | payer MEDICARE, SELFPAY ==
--- NOTE | 2024-08-17 09:06 | A.OFFVIS_ITS ---
[facility] Disclaimer: The information contained in this section may have been updated after the patient was seen, as this information can be updated by other users. Medical History COPD (chronic obstructive pulmonary disease) Anxiety Rotator cuff arthropathy of both shoulders Surgical History History of repair of left rotator cuff History of repair of right rotator cuff History of cholecystectomy Family History Other Family history of diabetes mellitus Family history of heart disease Social History (Updated 08/12/24 @ 10:24 by Angela Ross RN) Smoking Status: Former smoker tobacco type: smokeless tobacco second hand exposure: No alcohol intake: never substance use type: denies use current occupational status: disabled and other Travel in the last 8 weeks: None household members: spouse housing: house current occupational exposures/hazards: No caffeine: Yes PM Subjective & Objective Subjective Subjective:: Patient is a pleasant 58-year-old male who presents today for 1 week postop of intrathecal pain pump replacement on 08/12/2024. Today he rates his pain a 7 out of 10. He denies any new trauma or injury. He does state following this procedure for the first few days he did have significant pain and that he was not giving any postop pain meds and that in future he would highly recommend vahe t for him or anyone else. Patient is currently managed with Dilaudid 15 mg/mL with flex dosing ended total 24-hour dose of 5.506 mg/day. He denies any side effects from this medication. His Cyril has been reviewed and is appropriate. Review of Systems: General: No recent weight changes, no fever, no sleep disturbances Respiratory: No cough, no shortness of air, no recurring pulmonary infections Cardiovascular/peripheral vascular: No chest pain, no palpitations, no edema, no shortness of breath Gastrointestinal: No new onset incontinence, normal bowel movements reported Genitourinary: No new onset incontinence Musculoskeletal: Low back pain Psychiatric: [Normal mood/affect] Neurological: [Denies weakness in extremities], [denies balance issues] Pain at rest (0-10 scale): 7 Objective Objective:: Physical Exam: General: Alert and oriented x3, no acute distress, pleasant and cooperative Lungs: Respirations even and unlabored, symmetrical chest expansion Eyes: PERRL Musculoskeletal: Flexion and extension of lumbar [spine] somewhat guarded secondary to pain, [antalgic gait noted] Neurological: Speech clear, no gross sensory deficit Skin: Incisions are clean, dry, well-approximated with minimal erythema noted sutures and liz intact Has patient had previous pain injection?: No Conservative treatment options previously tried: Home exercise plan Length of treatment: Longer than 6 weeks Meds Home Medications and Allergies Home Medications ?Medication ?Instructions ?Recorded ?Confirmed ?Type omeprazole 40 mg capsule,delayed 40 mg PO DAILY GERD 02/05/18 08/12/24 History release sulfamethoxazole 800 1 tab PO BID #14 tabs 08/12/24 Rx mg-trimethoprim 160 mg tablet (Bactrim DS) New Prescriptions to Start Prescriptions: Allergies Allergy/AdvReac Type Severity Reaction Status Date / Time gabapentin [From NEURONTIN] Allergy Unknown HALLUCINATI Verified 08/12/24 10:27 ONS Assessment and Plan *Assessment and plan (1) Degenerative disc disease, lumbar: Status: Acute Category: Medical Code(s): M51.369 - Other intervertebral disc degeneration, lumbar region without mention of lumbar back pain or lower extremity pain (2) Lumbar radiculopathy: Status: Acute Category: Medical Code(s): M54.16 - Radiculopathy, lumbar region Plan Patient is doing well following his intrathecal replacement and does not require any additional adjustments. I did drug and alcohol counselor the patient that he is to continue his postop restrictions the full 6 weeks including minimal bending, twisting or lifting, no submerging in water until his incisions are fully healed and to continue to use his abdominal binder to prevent seroma formation. Patient acknowledges understanding agrees with plan of care. Patient will return to clinic in 2 weeks for suture and staple removal. Patient has been instructed to contact the clinic with any concerns before the next appointment. Dr. Schwartz has reviewed this note and agrees with this plan of care. This note was dictated using voice recognition software and make contain errors or omissions. All injections are used with Lidocaine or Bupivacaine and Depo Medrol.
[2024-08-17 09:14] VITALS: BP 118/72; PULSE 72; RESP 18; O2SAT 98; BMI 25.0
== END 2024-08-17 23:59 | disposition home or self-care (01) ==
LOC: SC.PAIN 08:36
PROVIDERS: PCP Family Medicine; Visit Provider Nurse Practitioner Family
DX: M51.16 Intervertebral disc disorders with radiculopathy, lumbar region (principal); Z87.891 Personal history of nicotine dependence
CPT/HCPCS: 99212; G0463

== ENCOUNTER 2024-08-31 14:38 | Outpatient (POV) | payer MEDICARE, SELFPAY ==
[2024-08-31 15:19] VITALS: BP 129/72; PULSE 80; RESP 18; O2SAT 94; BMI 28.5
--- NOTE | 2024-08-31 15:24 | EXP.PAIN.SOA ---
[facility] Disclaimer: The information contained in this section may have been updated after the patient was seen, as this information can be updated by other users. Medical History COPD (chronic obstructive pulmonary disease) Anxiety Rotator cuff arthropathy of both shoulders Surgical History History of repair of left rotator cuff History of repair of right rotator cuff History of cholecystectomy Family History Other Family history of diabetes mellitus Family history of heart disease Social History (Updated 08/12/24 @ 10:24 by Angela Ross RN) Smoking Status: Former smoker tobacco type: smokeless tobacco second hand exposure: No alcohol intake: never substance use type: denies use current occupational status: disabled Travel in the last 8 weeks: None household members: spouse housing: house current occupational exposures/hazards: No caffeine: Yes PM Subjective & Objective Subjective Subjective:: Patient is a pleasant 58-year-old male who presents today for suture and staple removal. Today he rates his pain a 5 out of 10. He denies any new trauma or injury. Patient does state that he has been having a significant flareup of right groin, hip and upper thigh pain. He states that it is a hard throbbing sensation that is affecting his ability perform activities of daily living such as cooking and cleaning. Patient has had a longstanding history of SI related pain and has gotten significant improvement from injections in the past at these locations. Patient has tried conservative therapy including oral medications, heat and ice, topicals, continued at home stretching exercise for longer than 12 weeks. Patient is currently managed with intrathecal Dilaudid 15 mg/mL with flex dosing of 5.506 mg/day. He denies any side effects from this medication. He states he does not feel like he needs an adjustment on his pump at this time. His Cyril has been reviewed and is appropriate. Review of Systems: General: No recent weight changes, no fever, no sleep disturbances Respiratory: No cough, no shortness of air, no recurring pulmonary infections Cardiovascular/peripheral vascular: No chest pain, no palpitations, no edema, no shortness of breath Gastrointestinal: No new onset incontinence, normal bowel movements reported Genitourinary: No new onset incontinence Musculoskeletal: Low back pain, right hip pain, right groin pain, right upper thigh pain Psychiatric: [Normal mood/affect] Neurological: [Denies weakness in extremities], [denies balance issues] Pain at rest (0-10 scale): 5 Objective Objective:: Physical Exam: General: Alert and oriented x3, no acute distress, pleasant and cooperative Lungs: Respirations even and unlabored, symmetrical chest expansion Eyes: PERRL Musculoskeletal: Flexion and extension of lumbar [spine] somewhat guarded secondary to pain, [antalgic gait noted] point tenderness along right SI with positive right Ricco's, Carlos's, Gaenslen's, compression and distraction exam Neurological: Speech clear, no gross sensory deficit Has patient had previous pain injection?: No Conservative treatment options previously tried: Home exercise plan Length of treatment: Longer than 12 weeks Meds Home Medications and Allergies Home Medications ?Medication ?Instructions ?Recorded ?Confirmed ?Type omeprazole 40 mg capsule,delayed 40 mg PO DAILY GERD 02/05/18 08/17/24 History release sulfamethoxazole 800 1 tab PO BID #14 tabs 08/12/24 08/17/24 Rx mg-trimethoprim 160 mg tablet (Bactrim DS) New Prescriptions to Start Prescriptions: Allergies Allergy/AdvReac Type Severity Reaction Status Date / Time gabapentin [From NEURONTIN] Allergy Unknown HALLUCINATI Verified 08/12/24 10:27 ONS Assessment and Plan *Assessment and plan (1) Sacroiliitis: Status: Acute Category: Medical Code(s): M46.1 - Sacroiliitis, not elsewhere classified (2) Degenerative disc disease, lumbar: Status: Acute Category: Medical Code(s): M51.369 - Other intervertebral disc degeneration, lumbar region without mention of lumbar back pain or lower extremity pain Plan Patient is experiencing significant pain in his right low back/hip/groin area. Patient did have extreme point tenderness along his right SI and a positive right Ricco's, Carlos's, Gaenslen's, compression and distraction exam. I did discuss with the patient that I do believe he would benefit from repeat right SI injection. Patient has had these in the past with his last injection in September 2023 that did provide 80% improvement and lasted longer than 6 months. Patient was gone over regarding the risk and benefits and he would like to proceed forward with this plan of care. We were able to take out all his sutures and liz today and apply skin glue and Steri-Strips. Patient was counseled to continue his postop restrictions the full 6 weeks. Patient will be scheduled for a right SI injection under fluoroscopy. He has tried and failed conservative therapy including continued at home stretching exercise for longer than 12 weeks. Patient has been instructed to contact the clinic with any concerns before the next appointment. Dr. Schwartz has reviewed this note and agrees with this plan of care. This note was dictated using voice recognition software and make contain errors or omissions. All injections are used with Lidocaine or Bupivacaine and Depo Medrol.
== END 2024-08-31 23:59 | disposition home or self-care (01) ==
LOC: SC.PAIN 14:39
PROVIDERS: PCP Family Medicine; Visit Provider Nurse Practitioner Family
DX: M46.1 Sacroiliitis, not elsewhere classified (principal); M51.369 Other intervertebral disc degeneration, lumbar region without mention of lumbar back pain or lower extremity pain; Z73.89 Other problems related to life management difficulty
CPT/HCPCS: 99212; G0463

== ENCOUNTER 2024-09-06 10:51 | Day surgery (SDC) | payer MEDICARE, SELFPAY ==
[2024-09-06 11:06] VITALS: BP 119/70; PULSE 102; RESP 16; TEMP 36.6; O2SAT 96; BMI 28.5
[2024-09-06 11:24] VITALS: BP 126/91; PULSE 85; RESP 18; O2SAT 96
[2024-09-06 11:25] VITALS: BP 126/91; PULSE 87; RESP 18; O2SAT 96
--- NOTE | 2024-09-06 11:33 | EXP.PAIN.PRO ---
Procedure Date: 09/06/24 Time: 11:30 Anesthesiologist:: Andrew Zimmer CRNA Complications:: None Pre-procedure Diagnosis:: Degenerative disc lumbar spine multilevels. Lumbar radiculopathy. Lumbar postlaminectomy and drome. Post-procedure Diagnosis:: Same. Indications for Procedure:: Patient is a very pleasant 59-year-old male who comes our clinic today for intrathecal pain pump interrogation refill. Patient currently being managed with hydromorphone 15 mg/mL at a rate of 5.506 mg/day. He is doing very well with his current settings. He is not reporting any side effects or complications. He is not requesting any changes. Patient is awake alert [place] x 3. In no acute distress. Flexion-extension lumbar spine somewhat guarded secondary to pain. Deep tendon reflexes upper lower extremities normal. Motor strength upper lower extremities normal. There is no gross sensory deficit. Gait is normal. Procedure Details:: Details of the procedure explained to the patient. The patient taken procedure room placed in sitting position. They over the pumps cleansed using chlorhexidine as a cleansing solution. The pump was interrogated. The pump was accessed with ease using a 22-gauge inch and half needle. 10 mL solution was withdrawn and discarded appropriate. The pump was then filled with 20 cc of solution containing hydromorphone 15 mg/mL. Pump rate will remain the same. Patient tolerated procedure without difficulty. There were no complications. Plan and Disposition:: Patient was discharged without incident.
[2024-09-06 11:34] VITALS: BP 108/72; PULSE 80; RESP 16; O2SAT 95
== END 2024-09-06 11:34 | disposition home or self-care (01) ==
PROVIDERS: PCP Family Medicine; Visit Provider Nurse Anesthetist, Certified Registered
DX: M51.16 Intervertebral disc disorders with radiculopathy, lumbar region (principal); M96.1 Postlaminectomy syndrome, not elsewhere classified
CPT/HCPCS: 95991

== ENCOUNTER 2024-09-27 10:50 | Day surgery (SDC) | payer MEDICARE, SELFPAY ==
[2024-09-27 11:13] VITALS: BP 126/82; PULSE 99; RESP 16; TEMP 36.9; O2SAT 98; BMI 28.5
[2024-09-27 11:36] VITALS: BP 161/99; PULSE 92; RESP 18; O2SAT 97
[2024-09-27 11:39] VITALS: BP 161/99; PULSE 92; RESP 18; O2SAT 97
[2024-09-27 11:41] VITALS: BP 124/73; PULSE 87; RESP 16; O2SAT 96
--- NOTE | 2024-09-27 12:12 | EXP.PAIN.PRO ---
Procedure Date: 09/27/24 Time: 10:00 Anesthesiologist:: Andrew Zimmer CRNA Complications:: None Pre-procedure Diagnosis:: Right sacroiliitis. Degenerative disc lumbar spine multilevels. Lumbar radiculopathy. Lumbar postlaminectomy syndrome. Lumbar spondylosis. Multilevel lumbar facet arthropathy Post-procedure Diagnosis:: Same. Indications for Procedure:: Patient is a pleasant 59-year-old male who comes our clinic today for right sacroiliac joint injection of cortisone and local anesthetic. Patient describes right low lumbar back pain as constant, dull, aching. Patient also reports extreme right anterior thigh pain to the knee joint. He is having difficulty with ambulation. Difficulty with sitting. Difficulty transitioning from sitting to standing. Patient is also being managed with intrathecal pain pump of hydromorphone 15 mg/mL at a rate of 5.506 mg/day. He is requesting increase in the intrathecal pain pump. I think this is reasonable. Albumin 20% increase today. His new rate will be 6.603 mg/day. Procedure Details:: Procedure: Right sacroliliac joint injection under fluoroscopy Informed consent was obtained and the risk and benefits of the procedure were explained to the patient.~ The patient was taken to the procedure room and noninvasive monitors were placed including noninvasive blood pressure cuff and pulse oximeter.~ The patient was placed prone on the procedure table.~ The~ right hip was cleansed using Betadine as a cleansing solution.~ C-arm fluorosocpy was used to view the right SI joint.~ The skin and subcutaneous tissues were anesthetized using Lidocaine 1.5% and a 25-gauge needle.~ After this, a 22-gauge spinal needle was inserted under fluoroscopic guidance into the inferior aspect of the right SI joint.~ Omnipaque dye was injected and a good spread was seen throughout the joint.~ After this, approximately 5 mL of bupivacaine 0.25% and Depo-Medrol 40 mg was incrementally injected into the sacroiliac joint.~ The patient tolerated the procedure well with no complications.~ The patient was observed in the Pain Clinic, then discharged home neurologically intact.~ Details of procedure explained to the patient. The intrathecal pain pump was interrogated. The pump rate was increased by 20%. The new rate is 6.603 mg/day. Patient tolerated procedure without difficulty. No complications. Plan and Disposition:: Patient was discharged without incident.
== END 2024-09-27 11:41 | disposition home or self-care (01) ==
LOC: SC.PAINP 10:52
PROVIDERS: PCP Family Medicine; Visit Provider Nurse Anesthetist, Certified Registered
DX: M46.1 Sacroiliitis, not elsewhere classified (principal); M51.16 Intervertebral disc disorders with radiculopathy, lumbar region; M96.1 Postlaminectomy syndrome, not elsewhere classified; M47.26 Other spondylosis with radiculopathy, lumbar region
CPT/HCPCS: 27096; 62368; G0260

== ENCOUNTER 2024-10-14 10:21 | Day surgery (SDC) | payer MEDICARE, SELFPAY ==
[2024-10-14 10:45] VITALS: BP 121/79; BP 123/75; PULSE 89; PULSE 96; RESP 16; RESP 18; TEMP 36.8; O2SAT 94; O2SAT 99; BMI 27.9
--- NOTE | 2024-10-14 11:06 | EXP.PAIN.PRO ---
Procedure Date: 10/14/24 Time: 11:06 Anesthesiologist:: Maranda Mariee APRN Complications:: None Pre-procedure Diagnosis:: Degenerative disc disease of lumbar spine with lumbar radiculopathy symptoms, sacroiliitis Post-procedure Diagnosis:: Same Indications for Procedure:: Patient is a pleasant 59-year-old male who presents today for intrathecal refill and reprogram. Today he rates his pain a 6 out of 10. Patient denies any new trauma or injury. Patient did recently have a right SI injection on 09/27/2024 that did provide significant relief and he is scheduled for his 2-week follow-up coming up. Patient does state that that injection really did help however he does still have some sensations in his upper thigh that just seem to always stick around. Patient was ordered compounded cream in the past however was not covered by his insurance. Patient did try nerve V [id number] and states this did help a lot and he keeps forgetting to sampler pickup additional. Patient is currently managed with Dilaudid 15 mg/mL with a daily dose of 6.603 mg/day. He denies any side effects from this medication. At his last visit he did have his pump increased and stated that that did really help and declines any adjustment today. His Cyril has been reviewed and is appropriate. Physical Exam: General: Alert and oriented x3, no acute distress, pleasant and cooperative Lungs: Respirations even and unlabored, symmetrical chest expansion Eyes: PERRL Musculoskeletal: Flexion and extension of lumbar [spine] somewhat guarded secondary to pain, [antalgic gait noted] Neurological: Speech clear, no gross sensory deficit Procedure Details:: Informed consent was obtained and the risk and benefits of the procedure were explained to the patient. The patient had noninvasive monitoring placed including noninvasive blood pressure cuff and pulse oximeter. Patient's pump was interrogated. The area over the pump was cleansed with chlorhexidine as a cleansing solution. In sterile fashion the pump was accessed with a 22-gauge needle. Approximately 4 mls of the pump solution was removed and discarded appropriately. The pump was then refilled with 20 mL's of Dilaudid 15 mg/mL. The needle was withdrawn and a bandage was placed over the puncture site. The infusion rate was reprogrammed and continued at 6.603 mg/day of Dilaudid. The patient tolerated well with no complication. Plan and Disposition:: Patient tolerated the procedure well with no complications and was discharged neurologically intact. Patient will return to clinic on or before his next intrathecal refill date. We will see the patient back in the clinic at the next intrathecal refill. Patient has been instructed to contact the clinic with any concerns before the next appointment. Dr. Schwartz has reviewed this note and agrees with this plan of care. This note was dictated using voice recognition software and make contain errors or omissions. -- It Is medically necessary for this patient to continue to have their intrathecal pump refilled at regular intervals. This patient had an intrathecal pain pump implanted after meeting criteria of chronic intractable pain for greater than 3 months and failing conservative treatments. Patient has committed and been compliant to the treatment plan and all planned follow up care. Since implantation of the intrathecal pain pump, the patient has had decreased pain and been more functional. Oral medications have been reduced including intake of oral opioids. Patient continues to do well with intrathecal therapy with decrease in pain symptoms and increase in functional status. Stopping intrathecal medications can lead to life threatening withdrawal, seizures, cardiac arrest, severe pain, and possible . Pumps that are not refilled at regular intervals can be damages and cause and need for replacement. We continually titrate dose and concentration to optimize pain relief and function. We are limited in concentration for certain drugs to safely deliver medications through the pump and stay within the recommendations from the [employer] Guidelines. Depending on dose and concentration these pumps may need to be refilled sooner than 3 months as we titrate. A UDS is needed to verify patient's compliance with our office pain contract. This is ordered based off specific treatments related to chronic pain with the potential to abuse certain medications.
[2024-10-14 11:13] VITALS: BP 139/80; PULSE 90; RESP 16; O2SAT 96
== END 2024-10-14 11:13 | disposition home or self-care (01) ==
PROVIDERS: PCP Family Medicine; Visit Provider Nurse Practitioner Family
DX: M51.16 Intervertebral disc disorders with radiculopathy, lumbar region (principal); M46.1 Sacroiliitis, not elsewhere classified
CPT/HCPCS: 62370

== ENCOUNTER 2024-11-18 10:40 | Day surgery (SDC) | payer MEDICARE, SELFPAY ==
--- NOTE | 2024-11-18 10:48 | EXP.PAIN.PRO ---
Procedure Date: 11/18/24 Time: 11:20 Anesthesiologist:: Maranda Mariee APRN Complications:: None Pre-procedure Diagnosis:: Degenerative disc disease of lumbar spine with lumbar radiculopathy symptoms, sacroiliitis, bilateral osteoarthritis of the knees Post-procedure Diagnosis:: Same Indications for Procedure:: Patient is a pleasant 59-year-old male who presents today for intrathecal refill and reprogram. Today he rates his pain a 6 out of 10. He denies any new trauma or injury. He states overall he is doing well with his current dosage and denies any need for adjustment. Patient is currently managed with Dilaudid 15 mg/mL with a daily dose of 6.603 mg/day. He denies any side effects from this medication. His Cyril has been reviewed and is appropriate. Physical Exam: General: Alert and oriented x3, no acute distress, pleasant and cooperative Lungs: Respirations even and unlabored, symmetrical chest expansion Eyes: PERRL Musculoskeletal: Flexion and extension of lumbar [spine] somewhat guarded secondary to pain, [antalgic gait noted] Neurological: Speech clear, no gross sensory deficit Procedure Details:: Informed consent was obtained and the risk and benefits of the procedure were explained to the patient. The patient had noninvasive monitoring placed including noninvasive blood pressure cuff and pulse oximeter. Patient's pump was interrogated. The area over the pump was cleansed with chlorhexidine as a cleansing solution. In sterile fashion the pump was accessed with a 22-gauge needle. Approximately 4.2 mls of the pump solution was removed and discarded appropriately. The pump was then refilled with 20 mL's of Dilaudid 15 mg/mL. The needle was withdrawn and a bandage was placed over the puncture site. The infusion rate was reprogrammed and continued at Dilaudid 6.603 mg/day. The patient tolerated well with no complication. Plan and Disposition:: Patient tolerated his intrathecal refill and reprogram with no complications and was discharged neurologically intact. Patient will return to clinic on or before his next intrathecal refill date. We will see the patient back in the clinic at the next intrathecal refill. Patient has been instructed to contact the clinic with any concerns before the next appointment. Dr. Schwartz has reviewed this note and agrees with this plan of care. This note was dictated using voice recognition software and make contain errors or omissions. -- It Is medically necessary for this patient to continue to have their intrathecal pump refilled at regular intervals. This patient had an intrathecal pain pump implanted after meeting criteria of chronic intractable pain for greater than 3 months and failing conservative treatments. Patient has committed and been compliant to the treatment plan and all planned follow up care. Since implantation of the intrathecal pain pump, the patient has had decreased pain and been more functional. Oral medications have been reduced including intake of oral opioids. Patient continues to do well with intrathecal therapy with decrease in pain symptoms and increase in functional status. Stopping intrathecal medications can lead to life threatening withdrawal, seizures, cardiac arrest, severe pain, and possible . Pumps that are not refilled at regular intervals can be damages and cause and need for replacement. We continually titrate dose and concentration to optimize pain relief and function. We are limited in concentration for certain drugs to safely deliver medications through the pump and stay within the recommendations from the [employer]ensus [employer] Guidelines. Depending on dose and concentration these pumps may need to be refilled sooner than 3 months as we titrate. A UDS is needed to verify patient's compliance with our office pain contract. This is ordered based off specific treatments related to chronic pain with the potential to abuse certain medications.
[2024-11-18 11:08] VITALS: BP 117/74; PULSE 86; RESP 16; TEMP 36.6; O2SAT 96; BMI 28.5
[2024-11-18 11:20] VITALS: BP 119/74; PULSE 90; RESP 18; O2SAT 94
[2024-11-18 11:28] VITALS: BP 119/74; PULSE 90; RESP 18; O2SAT 94
[2024-11-18 11:34] VITALS: BP 107/76; PULSE 85; RESP 16; O2SAT 95
== END 2024-11-18 11:34 | disposition home or self-care (01) ==
PROVIDERS: PCP Family Medicine; Visit Provider Nurse Practitioner Family
DX: M51.16 Intervertebral disc disorders with radiculopathy, lumbar region (principal); M46.1 Sacroiliitis, not elsewhere classified; M17.0 Bilateral primary osteoarthritis of knee
CPT/HCPCS: 62370

== ENCOUNTER 2024-12-23 10:43 | Day surgery (SDC) | payer MEDICARE, SELFPAY ==
[2024-12-23 10:53] VITALS: BP 129/85; PULSE 100; RESP 16; TEMP 36.4; O2SAT 96; BMI 28.5
[2024-12-23 10:59] VITALS: BP 127/83; PULSE 103; RESP 18; O2SAT 98
[2024-12-23 11:00] VITALS: BP 127/83; PULSE 103; RESP 18; O2SAT 98
--- NOTE | 2024-12-23 11:11 | P.PCN_ITS ---
Procedure Date: 12/23/24 Time: 11:05 Anesthesiologist:: Maranda Mariee APRN Complications:: None Pre-procedure Diagnosis:: Degenerative disc disease of lumbar spine with lumbar radiculopathy symptoms Post-procedure Diagnosis:: Same Indications for Procedure:: Patient is a pleasant 59-year-old male who presents today for intrathecal refill and reprogram. Today he rates his pain a 7 out of 10. He denies any new trauma or injury. Patient is currently managed with Dilaudid 50 mg/mL with a daily dose of 6.603 mg/day on flex dosing. He denies any side effects from this medication however is requesting an increase. His Cyril has been reviewed and is appropriate. Physical Exam: General: Alert and oriented x3, no acute distress, pleasant and cooperative Lungs: Respirations even and unlabored, symmetrical chest expansion Eyes: PERRL Musculoskeletal: Flexion and extension of lumbar [spine] somewhat guarded secondary to pain, [antalgic gait noted] Neurological: Speech clear, no gross sensory deficit Procedure Details:: Informed consent was obtained and the risk and benefits of the procedure were explained to the patient. The patient had noninvasive monitoring placed including noninvasive blood pressure cuff and pulse oximeter. Patient's pump was interrogated. The area over the pump was cleansed with chlorhexidine as a cleansing solution. In sterile fashion the pump was accessed with a 22-gauge needle. Approximately 4.1 mls of the pump solution was removed and discarded appropriately. The pump was then refilled with 20 mL's of Dilaudid 15 mg/mL. The needle was withdrawn and a bandage was placed over the puncture site. The infusion rate was reprogrammed and increased roughly 10% to Dilaudid 7.256 mg/day. The patient tolerated well with no complication. Plan and Disposition:: Patient tolerated the procedure well with no complications and was discharged neurologically intact. Patient will return to clinic on or before their next intrathecal refill date. We will see the patient back in the clinic at the next intrathecal refill. Patient has been instructed to contact the clinic with any concerns before the next appointment. Dr. Schwartz has reviewed this note and agrees with this plan of care. This note was dictated using voice recognition software and make contain errors or omissions. -- It Is medically necessary for this patient to continue to have their intrathecal pump refilled at regular intervals. This patient had an intrathecal pain pump implanted after meeting criteria of chronic intractable pain for greater than 3 months and failing conservative treatments. Patient has committed and been compliant to the treatment plan and all planned follow up care. Since implantation of the intrathecal pain pump, the patient has had decreased pain a nd been more functional. Oral medications have been reduced including intake of oral opioids. Patient continues to do well with intrathecal therapy with decrease in pain symptoms and increase in functional status. Stopping intrathecal medications can lead to life threatening withdrawal, seizures, cardiac arrest, severe pain, and possible . Pumps that are not refilled at regular intervals can be damages and cause and need for replacement. We continually titrate dose and concentration to optimize pain relief and function. We are limited in concentration for certain drugs to safely deliver medications through the pump and stay within the recommendations from the Polyanalgesic Consensus Committee Guidelines. Depending on dose and concentration these pumps may need to be refilled sooner than 3 months as we titrate. A UDS is needed to verify patient's compliance with our office pain contract. This is ordered based off specific treatments related to chronic pain with the potential to abuse certain medications.
[2024-12-23 11:21] VITALS: BP 126/76; PULSE 93; RESP 16; O2SAT 97
== END 2024-12-23 11:21 | disposition home or self-care (01) ==
PROVIDERS: PCP Family Medicine; Visit Provider Nurse Practitioner Family
DX: M51.16 Intervertebral disc disorders with radiculopathy, lumbar region (principal)
CPT/HCPCS: 62370

== ENCOUNTER 2024-12-29 14:13 | Outpatient (CLI) | payer MEDICARE, SELFPAY ==
--- NOTE | 2024-12-29 14:16 | XR_ITS ---
FINAL REPORT CLINICAL HISTORY: Shortness of breath, COPD COMPARISON: 11/12/2019 FINDINGS: PA and lateral views of the chest were obtained. No acute pulmonary density is evident. There is no evidence of effusion or other pleural disease. The mediastinum has a normal appearance. The cardiac silhouette is unremarkable. IMPRESSION: Unremarkable chest exam. Reviewed, Interpreted and Dictated by Nikki Woo MD Transcribed by Corin Choi Authenticated and [facility]
== END 2024-12-29 23:59 | disposition home or self-care (01) ==
LOC: RAD 14:13
PROVIDERS: PCP Family Medicine; Visit Provider Family Medicine
DX: R06.02 Shortness of breath (principal); R07.89 Other chest pain
CPT/HCPCS: 71046

== ENCOUNTER 2025-01-05 07:34 | Outpatient (CLI) | payer MEDICARE, SELFPAY ==
--- NOTE | 2025-01-05 07:42 | US_ITS ---
FINAL REPORT TECHNIQUE: Multiple transverse and longitudinal images CLINICAL HISTORY: RUQ PAIN COMPARISON: None FINDINGS: The gallbladder has been surgically resected. The common bile duct measures 6 mm, which is within normal limits in a patient status post cholecystectomy. No fluid collections are seen. Fatty infiltration of the liver is present. The pancreas is not well-visualized secondary to overlying bowel gas. Limited portions of the right kidney are unremarkable. IMPRESSION: Prior cholecystectomy. Fatty infiltration of the liver without evidence of biliary ductal dilatation. Reviewed, Interpreted and Dictated by Nikki Woo MD Transcribed by Gardenia Lund Authenticated and . [facility]
== END 2025-01-05 23:59 | disposition home or self-care (01) ==
PROVIDERS: PCP Family Medicine; Visit Provider Family Medicine
DX: R10.11 Right upper quadrant pain (principal); K74.60 Unspecified cirrhosis of liver; Z90.49 Acquired absence of other specified parts of digestive tract
CPT/HCPCS: 76705

== ENCOUNTER 2025-01-10 11:39 | Outpatient (CLI) | payer MEDICARE, SELFPAY ==
--- NOTE | 2025-01-10 11:40 | CT_ITS ---
APPROVED REPORT Inspector Elevators: CLINICAL INDICATION Chest Pain TECHNIQUE Image Acquisition: A 128 slice MDCT scanner (Digital Trowela View) was used for data acquisition. A noncontrast coronary calcium scan was performed. A CT attenuation threshold of 130 Hounsfield units (HU) was used for the detection of calcium in contiguous voxels of 1 sq mm in area to be counted as individual lesions. Bolus tracking in the ascending aorta with a threshold of 180 HU was performed. Immediately afterwards, ECG synchronized cardiac CT was then performed from the cardiac base to apex using retrospective gating with ECG tube current modulation. A total of 85 mL of Isovue 370 mg/mL contrast medium was administered at 5 mL/sec followed by a saline flush using a biphasic injection protocol. A tube voltage of 120 KVp was used. The patient received the following medications prior to the cardiac CT. 75 mg of oral metoprolol 15 mg of oral ivabradine The average heart rate at the time of acquisition was 69 bpm and regular. Image Reconstruction Transaxial images were reconstructed at 0.67 mm slide thickness. Data was reviewed interactively on an advanced workstation capable of 2 and 3-dimensional displays in all conventional reconstruction formats, including multiplanar reformations, maximum intensity projections, curved multiplanar reformations, and volume rendered reconstructions. When applicable, selected routine images describing the relevant coronary anatomy and pathology were saved and sent to PACS. Complications None Technical Quality Overall image quality was suboptimal due to significant motion artifact. Coronary artery opacification was adequate. Total DLP (Dose-Length Product) is 1541.6 mGy-cm. The reported value represents the total of one or more individual components during the CT acquisition of this date and at this time, and as such, the same value may appear in more than one CT report depending on the interpreting/reporting physicians. COMPARISON None FINDINGS CT Coronary Calcium Scoring LMA (Left Main Artery) = 0 LAD (Left Anterior Descending) = 68 LCX (Left Coronary Circumflex) = 0 RCA (Right Coronary Artery) = 0 Total Calcium Score = 68 using the AJ-130 method. The observed calcium score of 68 is at 67th percentile for subjects of the same age, sex, and race/ethnicity. The interpretation of the calcium heart score is based on the following continuum*: 0 = no calcified plaque detected (risk of coronary artery disease is very low ??? less than 5%) 1-10 = calcium detected in extremely minimal levels (risk of coronary diseases is still low ??? less than 10%) 11-100 = mild levels of plaque detected with certainty (mild or minimal narrowing of heart arteries is likely) 101-400 = definite,at least moderate levels of plaque detected (relatively high risk of a heart attack within 3-5 years) >401-999 = extensive levels of plaque detected (high risk of heart attack, high levels of vascular disease are present, high likelihood of at least one significant coronary narrowing) *The calcium heart score quantifies the burden of coronary calcification/plaque in the coronary arteries. The calcium heart score is not able to evaluate the presence or burden of non-calcified (i.e. soft) plaque. There is no identifiable calcification in the aortic valve, mitral annulus or mitral valve, pericardium, or myocardium. Coronary CT Angiography The coronary arterial system is right dominant. Quantitative Stenosis Grading: Left Main (LM): The left main originates normally from the left sinus of Valsalva. The LM bifurcates into the left anterior descending artery and left circumflex artery. The LM is patent with no evidence of atherosclerosis. Left Anterior Descending (LAD) and Diagonal Branches: The LAD gives off 2 diagonal branch(es). There is mixed calcified/noncalcified plaque in the proximal and mid LAD segments, with up to 70-90% luminal stenosis in the mid LAD segment. There is no evidence of LAD-myocardial bridge. Left Circumflex (LCX) and Obtuse Marginals (OM): The LCX gives off 1 Obtuse Marginal (OM) branch(es). The LCX and its branches are patent with no evidence of atherosclerosis. Right Coronary Artery (RCA): The RCA originates normally from the right sinus of Valsalva. The RCA gives off a posterior descending artery (PDA) and posterolateral (PL) branches. The RCA is difficult to analyze in the setting of significant motion artifact, but grossly the RCA and its branches are patent with no obvious evidence of atherosclerosis. Non-Coronary Cardiac Findings: Analysis of the left ventricular (LV) structure and function was performed after 3-D reconstruction of the LV from axial images, with user-corrected automatic contouring for assessment of LV volumes and user-defined reconstruction from oblique planes for measurement of 3-D cardiac structure and function. -The left ventricle systolic function is normal. -There is no left atrial appendage filling defect. Two right pulmonary veins and two left pulmonary veins drain normally into the left atrium. -No pericardial thickening or calcification. -Central and branch pulmonary arteries in the [id number] are unremarkable. -Thoracic aorta within the visualized thoracic aortic-branches in the [id number] is unremarkable. Extracardiac Structures No significant extra-cardiac findings. Note, however, that this study is focused on the cardiac findings. IMPRESSION -Technically difficult study due to significant motion artifact. Some coronary segments are not well-visualized. -Presence of coronary calcification with an Agatston score = 68 using the AJ-130 method. -The observed calcium score of 68 is at 67th percentile for subjects of the same age, sex, and race/ethnicity. -Mixed calcified/noncalcified plaque in the proximal and mid LAD segments, with possible evidence of significant flow-limiting atherosclerosis of the mid LAD segment (up to 70-90% luminal stenosis). -CAD-RADS 4A. Management recommendations per ACC/AHA guidelines*, as clinically appropriate. *Recommendations: CAD RADS 0: Reassurance. Consider non-atherosclerotic causes of chest pain. CAD RADS 1: Consider non-atherosclerotic causes of chest pain. Consider preventive therapy and risk factor modification. CAD RADS 2: Consider non-atherosclerotic causes of chest pain. Consider preventive therapy and risk factor modification, particularly for patients with nonobstructive plaque in multiple segments. CAD RADS 3: Consider further functional testing. Consider symptom-guided anti-ischemic and preventive pharmacotherapy as well as risk factor modification per published guideline statements. CAD RADS 4A: Consider further functional testing or invasive coronary angiography with revascularization per published guideline statements. Consider symptom-guided anti-ischemic and preventive pharmacotherapy as well as risk factor modification per published guideline statements. CAD RADS 4B: Invasive coronary angiography recommended with revascularization per published guideline statements. Consider symptom-guided anti-ischemic and preventive pharmacotherapy as well as risk factor modification per published guideline statements. CAD RADS 5: Consider invasive angiography and/or viability assessment with revascularization per published guideline statements. Consider symptom-guided anti-ischemic and preventive pharmacotherapy as well as risk factor modification per published guideline statements. CRITICAL RESULT None COMMUNICATION Per this written report The coronary and cardiac findings of this CCTA were reviewed, reported, and signed by Shad Berry MD (It Program Manager) Conclusion Electronically signed by : Corie Berry MD 01/11/2025 13:40:32
[2025-01-10 11:52] VITALS: BMI 28.3
[2025-01-10] MEDS: IVABRADINE HCL 7.5MG TABLET PO (12:02)
[2025-01-10] MEDS: METOPROLOL TARTRATE 50MG TABLET PO (12:03)
[2025-01-10 12:05] VITALS: BP 114/68; PULSE 80; RESP 16; O2SAT 95
[2025-01-10 12:27] LABS: Chloride 97 mmol/L (98-107); Potassium 4.2 mmoL/L (3.5-5.1); Sodium 132 mmol/L (136-145)
[2025-01-10 12:30] LABS: Anion Gap 10.2 mEq/L (5-15); Blood Urea Nitrogen 16 mg/dl (9-20); Carbon Dioxide 29 mmol/L (22.0-30.0); Creatinine Clearance Estimated 135 mL/min (50-200); Estimated Glomerular Filt Rate 99 ml/min (>60); GFR (African American) 120 ML/MIN (>60)
[2025-01-10 12:31] LABS: Calcium 9.5 mg/dl (8.4-10.2); Glucose 322 mg/dl (74-100)
[2025-01-10 12:55] VITALS: BP 130/80; PULSE 64; RESP 18; O2SAT 96
[2025-01-10 12:58] VITALS: BP 122/78; PULSE 64; RESP 16; O2SAT 96
[2025-01-10 13:03] VITALS: BP 123/80; PULSE 65; RESP 16; O2SAT 96
[2025-01-10 13:06] VITALS: BP 122/80; PULSE 67; RESP 18; O2SAT 95
[2025-01-10 13:15] VITALS: BP 119/79; PULSE 66; RESP 18; O2SAT 95
[2025-01-10] MEDS: IOPAMIDOL-370 (76%);100ML BOTTLE 85 ML IV (13:21)
[2025-01-10] MEDS: 0.9 % SODIUM CHLORIDE 50 ML VIAL IV (13:21)
[2025-01-10] MEDS: SODIUM CHLORIDE 0.9% 10ML SYR (RAD ONLY) 10 ML IV (13:21)
--- NOTE | 2025-01-10 13:38 | PC.NURSE ---
1320: Pt transported to echo lab per Coral Pierce.
== END 2025-01-10 23:59 | disposition home or self-care (01) ==
LOC: RAD 11:40
PROVIDERS: PCP Family Medicine; Visit Provider Physician Assistant
DX: I25.118 Atherosclerotic heart disease of native coronary artery with other forms of angina pectoris (principal); I51.89 Other ill-defined heart diseases
CPT/HCPCS: 75574; 80048; 93306; Q9967

== ENCOUNTER 2025-01-20 11:00 | Day surgery (SDC) | payer MEDICARE, SELFPAY ==
--- NOTE | 2025-01-20 11:04 | EXP.PAIN.PRO ---
Procedure Date: 01/20/25 Time: 11:38 Anesthesiologist:: Maranda Mariee APRN Complications:: None Pre-procedure Diagnosis:: Degenerative disc disease of lumbar spine with lumbar radiculopathy symptoms Post-procedure Diagnosis:: Same Indications for Procedure:: Patient is a pleasant 59-year-old male who presents today for intrathecal refill and reprogram. Today he rates his pain a 5 out of 10. He denies any new falls or injuries. He does state that he is having a lot more pain along his low back along the right side and into his right hip. Patient does state he would be interested in repeat injections. Patient has had sacroiliac joint injections with his last 1 in September that did provide significant improvement with overall improved function. Patient does state he would like to get this repeated as the pain is interfering with his ability to perform activities of daily living such as cooking and cleaning. Patient denies any radiating symptoms into his legs. He does describe it as an aching, throbbing sensation that is worse with prolonged positioning such as sitting or standing. Patient has tried conservative treatment with minimal improvement. He is currently managed with Dilaudid 15 mg/mL with a daily dose of 7.256 mg/day. He denies any side effects. Patient does make mention that he is scheduled for a heart cath this coming Thursday. Patient states he has had chronic cardiac related issues in the past. His Cyril has been reviewed and is appropriate. Physical Exam: General: Alert and oriented x3, no acute distress, pleasant and cooperative Lungs: Respirations even and unlabored, symmetrical chest expansion Eyes: PERRL Musculoskeletal: Flexion and extension of lumbar [spine] somewhat guarded secondary to pain, [antalgic gait noted] point tenderness along right SI with positive right Ricco's, Carlos's, Gaenslen's, compression and distraction exam Neurological: Speech clear, no gross sensory deficit Procedure Details:: Informed consent was obtained and the risk and benefits of the procedure were explained to the patient. The patient had noninvasive monitoring placed including noninvasive blood pressure cuff and pulse oximeter. Patient's pump was interrogated. The area over the pump was cleansed with chlorhexidine as a cleansing solution. In sterile fashion the pump was accessed with a 22-gauge needle. Approximately 6.1 mls of the pump solution was removed and discarded appropriately. The pump was then refilled with 20 mL's of Dilaudid 15 mg/mL. The needle was withdrawn and a bandage was placed over the puncture site. The infusion rate was reprogrammed and continued at its current dosage. The patient tolerated well with no complication. Plan and Disposition:: Patient tolerated the procedure well with no complications and was discharged neurologically intact. Patient is experiencing worsening pain along the low back and right. They did have limited range of motion of the lumbar spine along with point tenderness along right SI joints and a positive bilateral Ricco's, Carlos's, Gaenslen's, compression and distraction exam. I did discuss with the patient that I do believe they would benefit from right SI injections. Risk and benefits were discussed with the patient and they would like to proceed forward with this option. Patient has tried and failed conservative therapy including continued at home stretching exercise for longer than 12 weeks. Patient had his last SI injections back in September 2024 that did provide 80% relief and lasted longer than 3 months. Patient has experienced this pain in this area for longer than 3 months. Patient will be injected with less than 1 mL of solution. Patient will be scheduled for right SI injection under fluoroscopy. I did discuss with the patient if anything changes related to his cardiac cath to immediately let us know and we will decide at that time whether or not the patient needs to be rescheduled or canceled for this injection. Patient agrees with this plan of care. Patient has been instructed to contact the clinic with any concerns before the next appointment. Dr. Schwartz has reviewed this note and agrees with this plan of care. This note was dictated using voice recognition software and make contain errors or omissions. All injections are used with Lidocaine or Bupivacaine and Depo Medrol. We will see the patient back in the clinic at the next intrathecal refill. Patient has been instructed to contact the clinic with any concerns before the next appointment. Dr. Schwartz has reviewed this note and agrees with this plan of care. This note was dictated using voice recognition software and make contain errors or omissions. -- It Is medically necessary for this patient to continue to have their intrathecal pump refilled at regular intervals. This patient had an intrathecal pain pump implanted after meeting criteria of chronic intractable pain for greater than 3 months and failing conservative treatments. Patient has committed and been compliant to the treatment plan and all planned follow up care. Since implantation of the intrathecal pain pump, the patient has had decreased pain and been more functional. Oral medications have been reduced including intake of oral opioids. Patient continues to do well with intrathecal therapy with decrease in pain symptoms and increase in functional status. Stopping intrathecal medications can lead to life threatening withdrawal, seizures, cardiac arrest, severe pain, and possible . Pumps that are not refilled at regular intervals can be damages and cause and need for replacement. We continually titrate dose and concentration to optimize pain relief and function. We are limited in concentration for certain drugs to safely deliver medications through the pump and stay within the recommendations from the Polyanalgesic Consensus Committee Guidelines. Depending on dose and concentration these pumps may need to be refilled sooner than 3 months as we titrate. A UDS is needed to verify patient's compliance with our office pain contract. This is ordered based off specific treatments related to chronic pain with the potential to abuse certain medications.
[2025-01-20 11:08] VITALS: BP 112/73; PULSE 81; RESP 16; TEMP 36.9; O2SAT 98; BMI 27.3
[2025-01-20 11:33] VITALS: BP 105/68; PULSE 81; RESP 18; O2SAT 96
[2025-01-20 11:34] VITALS: BP 105/68; PULSE 82; RESP 18; O2SAT 95
[2025-01-20 11:49] VITALS: BP 113/72; PULSE 80; RESP 16; O2SAT 96
== END 2025-01-20 11:49 | disposition home or self-care (01) ==
PROVIDERS: PCP Family Medicine; Visit Provider Nurse Practitioner Family
DX: M51.16 Intervertebral disc disorders with radiculopathy, lumbar region (principal); M46.1 Sacroiliitis, not elsewhere classified
CPT/HCPCS: 62370; 99212; G0463

== ENCOUNTER 2025-01-25 07:53 | Day surgery (SDC) | payer MEDICARE, SELFPAY ==
[2025-01-25] VITALS (12 sets, daily range): BP systolic 112–137; BP diastolic 64–93; PULSE 61–90; RESP 18–20; O2SAT 93–99; BMI 28.5
--- NOTE | 2025-01-25 07:16 | IR_ITS ---
APPROVED REPORT Patient Location: Outpatient PROCEDURES Left heart catheterization Left ventriculogram Selective coronary angiogram Drug-eluting stent deployment to the proximal and mid LAD Drug-eluting stent deployment to the first diagonal artery INDICATION Coronary artery disease, Angina pectoris, Abnormal CCTA Informed consent was obtained prior to the procedure. COMPLICATIONS NONE Estimated Blood Loss: LESS THAN 10 ML TECHNIQUE One percent lidocaine used to anesthetize the right anterior aspect of the wrist. The right radial artery was accessed via the Seldinger technique. A 6 [place] sheath was placed in the right radial artery. 2.5 mg of Verapamil, 800 mcg of nitroglycerin, 1mg Lidocaine and 5000 U Heparin were given through the arterial sheath. The papa catheter was also used to perform left heart catheterization, left ventriculogram and selective coronary angiogram. At the end the diagnostic angiogram therapeutic Was administered with a therapeutic ACT and the guide catheter was placed in left main artery followed by Choice PT export wire placed down the LAD and 1 in the diagonal artery. A 3.5 x 12 mm Dustin frontier stent was placed in the proximal LAD which crossed the first diagonal artery and deployed at 16 randi. There was jailing of the first diagonal artery therefore an additional 3.5 x 12 mm Dustin frontier stent was placed proximal to the for stent yet still overlapping and deployed at 24 randi. Wire was then placed into the first diagonal artery and a 2 mm x 12 mm compliant balloon was used to open the struts going into the first diagonal artery. A 2.25 x 12 mm [place] frontier stent was then placed in the ostial segment and deployed at 20 randi in the proximal diagonal artery. A 3.5 mm balloon was then advanced and deployed at 20 randi to make sure no diagonal artery struts stuck out into the proximal LAD. An additional 3 mm x 22 mm [place] frontier stent was placed distal to the first 3.5 mm stent and deployed at 16 randi. The balloon was brought back and deployed at 24 randi to match the 2 stents. KAMINI-3 flow was present before and after the procedure and the LAD and diagonal artery. At the end the procedure the apparatus was removed the sheath was removed and hemostasis was achieved using TR banding patient was transferred to the postop putting in stable condition ANGIOGRAPHIC RESULTS The left main artery Normal The left anterior descending artery Has proximal 20% stenoses followed by a proximal to mid vessel 70% stenosis immediately adjacent to a large first diagonal artery there is additional 30% stenoses in between the first and second diagonal artery. The first diagonal artery has an ostial 40% stenosis which after the stent became jailed creating more severe stenosis closer to 80 and 90%. The circumflex artery Dominant and normal The right coronary artery Nondominant normal The KRAUSE ventriculogram reveals Normal 65% The left ventricular end-diastolic pressure 15 mmHg IMPRESSION Disease in the proximal to mid LAD as described above which extended to the first diagonal artery Successful stenting the proximal to mid LAD severe disease reduced to 0% with 3 contiguous drug-eluting stents followed by additional bifurcating stent into a large first diagonal artery Normal ejection fraction Normal LVEDP PLAN 1. Effient and aspirin 2. LDL less than 55 achieved high intensity statin 3. Avoidance of tobacco products 4. Risk factor modification 5. Cardiac rehabilitation Electronically signed by : Arden Baez MD 01/25/2025 15:30:22
[2025-01-25 08:18] LABS: Basophils # 0.1 K/mm3 (0-0.2); Basophils % 0.8 % (0.1-2.0); Eosinophils # 0.1 K/mm3 (0.0-0.4); Eosinophils % 1.9 % (0.1-12.0); Hematocrit 45.8 % (42.0-52.0); Hemoglobin 15.8 g/dL (14.1-18.0); Lymphocytes # 1.8 K/mm3 (0.7-4.5); Lymphocytes % 23.7 % (10-50); Mean Corpuscular HGB Conc 34.5 g/dL (31.8-35.4); Mean Corpuscular Hemoglobin 29.9 pg (27.0-31.2); Mean Corpuscular Volume 86.6 fl (80-94); Mean Platelet Volume 10.5 fl (7.4-10.4); Monocytes # 0.5 K/mm3 (0.1-1.0); Monocytes % 6.7 % (1.7-9.3); Neutrophils # 4.9 K/mm3 (1.8-7.8); Neutrophils % 66.5 % (37.0-80.0); Platelet Count 211 K/mm3 (142-424); Red Blood Count 5.29 M/mm3 (4.60-6.20); Red Cell Distribution Width 11.9 % (11.5-17.5); White Blood Count 7.4 K/mm3 (4.8-10.8)
[2025-01-25 08:31] LABS: Blood Urea Nitrogen 11 mg/dl (9-20); Calcium 9.8 mg/dl (8.4-10.2); Carbon Dioxide 26 mmol/L (22.0-30.0); Creatinine Clearance Estimated 136 mL/min (50-200); Estimated Glomerular Filt Rate 99 ml/min (>60); GFR (African American) 120 ML/MIN (>60); Glucose 223 mg/dl (74-100); Potassium 3.9 mmoL/L (3.5-5.1); Sodium 137 mmol/L (136-145)
[2025-01-25 09:36] LABS: Anion Gap 16.9 mEq/L (5-15); Chloride 98 mmol/L (98-107)
[2025-01-25] MEDS: HEPARIN 1,000 UNITS/ML 10ML VIAL (CATH LAB) 10000 UNIT IV (11:09)
[2025-01-25] MEDS: LIDOCAINE 1% 10ML MDV 20 ML IJ (11:09)
[2025-01-25] MEDS: diphenhydrAMINE 50MG/ML VIAL 50 MG IV (11:09)
[2025-01-25] MEDS: HEPARIN 1,000 UNITS/500ML NS (CATH LAB) 3000 UNIT IV (11:09)
[2025-01-25] MEDS: VERAPAMIL 2.5MG/ML 2ML VIAL 2.5 MG IV (11:10)
[2025-01-25] MEDS: NITROGLYCERIN 800MCG/8ML SYR (CATH LAB) 800 MCG IA (11:10)
[2025-01-25] MEDS: 0.9 % SODIUM CHLORIDE 500 ML 25 ML IV (11:10)
[2025-01-25] MEDS: FENTANYL 100MCG/2ML VIAL 50 MCG IV (11:48)
[2025-01-25] MEDS: MIDAZOLAM HCL 1MG/ML 5ML VIAL 1 MG IV (11:48)
[2025-01-25] MEDS: PRASUGREL 10MG TAB 60 MG PO (11:55)
[2025-01-25 14:59] LABS: CATHL Activated Clotting Time > 400 SEC (74-125)
[2025-01-25] MEDS: IOPAMIDOL-370 (76%);100ML BOTTLE 180 ML IV (15:02)
== END 2025-01-25 15:35 | disposition home or self-care (01) ==
PROVIDERS: PCP Family Medicine; Visit Provider Internal Medicine
DX: I25.118 Atherosclerotic heart disease of native coronary artery with other forms of angina pectoris (principal); R06.02 Shortness of breath; R93.1 Abnormal findings on diagnostic imaging of heart and coronary circulation; R94.30 Abnormal result of cardiovascular function study, unspecified; Z95.5 Presence of coronary angioplasty implant and graft; Z87.891 Personal history of nicotine dependence; Z79.85 Long-term (current) use of injectable non-insulin antidiabetic drugs; Z79.899 Other long term (current) drug therapy; J44.9 Chronic obstructive pulmonary disease, unspecified; Z88.8 Allergy status to other drugs, medicaments and biological substances; Z79.82 Long term (current) use of aspirin
CPT/HCPCS: 80048; 85025; 85347; 92928; 92929; 93458; 99152; 99153; C1725; C1760; C1769; C1874; C9600; C9601; J1200; J1644; J3010; Q9967

== ENCOUNTER 2025-01-27 11:08 | Outpatient (CLI) | payer MEDICARE, SELFPAY ==
[2025-01-27 11:39] LABS: Basophils # 0.1 K/mm3 (0-0.2); Basophils % 0.8 % (0.1-2.0); Eosinophils # 0.2 K/mm3 (0.0-0.4); Eosinophils % 2.1 % (0.1-12.0); Hematocrit 45.3 % (42.0-52.0); Hemoglobin 15.4 g/dL (14.1-18.0); Lymphocytes # 1.7 K/mm3 (0.7-4.5); Lymphocytes % 23.1 % (10-50); Mean Corpuscular Hemoglobin 29.6 pg (27.0-31.2); Mean Corpuscular Volume 86.9 fl (80-94); Mean Platelet Volume 10.6 fl (7.4-10.4); Monocytes # 0.4 K/mm3 (0.1-1.0); Monocytes % 5.5 % (1.7-9.3); Neutrophils % 68.1 % (37.0-80.0); Platelet Count 184 K/mm3 (142-424); Red Blood Count 5.21 M/mm3 (4.60-6.20); Red Cell Distribution Width 11.7 % (11.5-17.5); White Blood Count 7.3 K/mm3 (4.8-10.8)
[2025-01-27 12:01] LABS: Anion Gap 14.9 mEq/L (5-15); Blood Urea Nitrogen 9 mg/dl (9-20); Calcium 10.4 mg/dl (8.4-10.2); Carbon Dioxide 28 mmol/L (22.0-30.0); Chloride 95 mmol/L (98-107); Estimated Glomerular Filt Rate 116 ml/min (>60); GFR (African American) 140 ML/MIN (>60); Glucose 307 mg/dl (74-100); Potassium 4.9 mmoL/L (3.5-5.1); Sodium 133 mmol/L (136-145)
== END 2025-01-27 23:59 | disposition home or self-care (01) ==
LOC: LAB 11:09
PROVIDERS: PCP Family Medicine; Visit Provider Internal Medicine
DX: Z95.5 Presence of coronary angioplasty implant and graft (principal); R73.09 Other abnormal glucose; I25.10 Atherosclerotic heart disease of native coronary artery without angina pectoris; R93.1 Abnormal findings on diagnostic imaging of heart and coronary circulation
CPT/HCPCS: 36415; 80048; 85025

== ENCOUNTER 2025-02-14 09:18 | Day surgery (SDC) | payer MEDICARE, SELFPAY ==
[2025-02-14 09:28] VITALS: BP 109/69; PULSE 88; RESP 16; TEMP 36.5; O2SAT 96; BMI 27.6
--- NOTE | 2025-02-14 09:43 | EXP.PAIN.PRO ---
Procedure Date: 02/14/25 Time: 09:33 Anesthesiologist:: Andrew Zimmer CRNA Complications:: None Pre-procedure Diagnosis:: Right sacroiliitis. Degenerative disc lumbar spine multilevels. Lumbar radiculopathy. Lumbar spondylosis. Lumbar postlaminectomy syndrome Post-procedure Diagnosis:: Same. Indications for Procedure:: Patient is a very pleasant 59-year-old male who comes our clinic today for right sacroiliac joint injection to cortisone local anesthetic. Patient describes low lumbar back pain mainly on the right as well as right posterior hip pain. Difficulty transitioning from sitting to standing. Procedure Details:: Procedure: Right sacroliliac joint injection under fluoroscopy Informed consent was obtained and the risk and benefits of the procedure were explained to the patient.~ The patient was taken to the procedure room and noninvasive monitors were placed including noninvasive blood pressure cuff and pulse oximeter.~ The patient was placed prone on the procedure table.~ The~ right hip was cleansed using Betadine as a cleansing solution.~ C-arm fluorosocpy was used to view the right SI joint.~ The skin and subcutaneous tissues were anesthetized using Lidocaine 1.5% and a 25-gauge needle.~ After this, a 22-gauge spinal needle was inserted under fluoroscopic guidance into the inferior aspect of the right SI joint.~ Omnipaque dye was injected and a good spread was seen throughout the joint.~ After this, approximately 5 mL of bupivacaine 0.25% and Depo-Medrol 40 mg was incrementally injected into the sacroiliac joint.~ The patient tolerated the procedure well with no complications.~ The patient was observed in the Pain Clinic, then discharged home neurologically intact.~ Plan and Disposition:: Patient was discharged without incident.
[2025-02-14 09:46] VITALS: BP 110/69; PULSE 88; RESP 16; O2SAT 94
[2025-02-14 10:03] VITALS: BP 128/43; PULSE 90; RESP 18; O2SAT 95
[2025-02-14] MEDS: methylPREDNISolone ACETATE 80MG/ML VIAL 80 MG (10:03)
[2025-02-14] MEDS: LIDOCAINE 1% 5ML PF VIAL 5 ML (10:03)
[2025-02-14] MEDS: BUPIVACAINE 0.25% 10ML INJ 25 MG IJ (10:03)
[2025-02-14 10:07] VITALS: BP 128/43; PULSE 90; RESP 18; O2SAT 95
== END 2025-02-14 09:46 | disposition home or self-care (01) ==
PROVIDERS: PCP Family Medicine; Visit Provider Nurse Anesthetist, Certified Registered
DX: M46.1 Sacroiliitis, not elsewhere classified (principal); M51.16 Intervertebral disc disorders with radiculopathy, lumbar region; M47.26 Other spondylosis with radiculopathy, lumbar region; M96.1 Postlaminectomy syndrome, not elsewhere classified
CPT/HCPCS: 27096; G0260; J1010

== ENCOUNTER → 2025-02-16 13:04 | Day surgery (SDC) | payer MEDICARE, SELFPAY ==
[2025-02-16 13:10] VITALS: BP 114/57; PULSE 64; RESP 16; O2SAT 95; BMI 27.8
--- NOTE | 2025-02-16 13:13 | P.PCN_ITS ---
Procedure Date: 02/16/25 Time: 13:32 Anesthesiologist:: Maranda Mariee APRN Complications:: None Pre-procedure Diagnosis:: Degenerative disc disease of lumbar spine with lumbar radiculopathy symptoms, osteoarthritis bilateral knees, sacroiliitis Post-procedure Diagnosis:: Same Indications for Procedure:: Patient is a pleasant 59-year-old male who presents today for intrathecal refill and reprogram. Today he rates his pain a 6 out of 10. Patient denies any new falls or injuries. He does state that that right SI injection he got last week already feels like it is providing significant relief. Patient is writing at least a 70 to 80% improvement and feels like it is getting better day-to-day. He states that severe pain is not like what it was.Patient is currently managed with intrathecal Dilaudid 15 mg/mL with a daily dose of 7.256 mg/day. He denies any side effects.His Cyril has been reviewed and is appropriate. Physical Exam: General: Alert and oriented x3, no acute distress, pleasant and cooperative Lungs: Respirations even and unlabored, symmetrical chest expansion Eyes: PERRL Musculoskeletal: Flexion and extension of lumbar [spine] somewhat guarded secondary to pain, [antalgic gait noted] Neurological: Speech clear, no gross sensory deficit Procedure Details:: Informed consent was obtained and the risk and benefits of the procedure were explained to the patient. The patient had noninvasive monitoring placed i ncluding noninvasive blood pressure cuff and pulse oximeter. Patient's pump was interrogated. The area over the pump was cleansed with chlorhexidine as a cleansing solution. In sterile fashion the pump was accessed with a 22-gauge needle. Approximately 6.2 mls of the pump solution was removed and discarded appropriately. The pump was then refilled with 20 mL's of Dilaudid 15 mg/mL. The needle was withdrawn and a bandage was placed over the puncture site. The infusion rate was reprogrammed and continued at its current dosage. The patient tolerated well with no complication. Plan and Disposition:: Patient tolerated the procedure well with no complications and was discharged neurologically intact. I did discuss with the patient regarding his improvement following his right SI injection and we will cancel his follow-up appointment next week for the same issue. Patient will return to clinic on or before his next refill date. Patient agrees with this plan of care. Patient will return to clinic on or before their next intrathecal refill date. We will see the patient back in the clinic at the next intrathecal refill. Patient has been instructed to contact the clinic with any concerns before the next appointment. Dr. Schwartz has reviewed this note and agrees with this plan of care. This note was dictated using voice recognition software and make contain errors or omissions. -- It Is medically necessary for this patient to continue to have their intrathecal pump refilled at regular intervals. This patient had an intrathecal pain pump implanted after meeting criteria of chronic intractable pain for greater than 3 months and failing conservative treatments. Patient has committed and been compliant to the treatment plan and all planned follow up care. Since implantation of the intrathecal pain pump, the patient has had decreased pain and been more functional. Oral medications have been reduced including intake of oral opioids. Patient continues to do well with intrathecal therapy with decrease in pain symptoms and increase in functional status. Stopping intrathecal medications can lead to life threatening withdrawal, seizures, cardiac arrest, severe pain, and possible . Pumps that are not refilled at regular intervals can be damages and cause and need for replacement. We continually titrate dose and concentration to optimize pain relief and function. We are limited in concentration for certain drugs to safely deliver medications through the pump and stay within the recommendations from the [employer] Consensus [employer] Guidelines. Depending on dose and concentration these pumps may need to be refilled sooner than 3 months as we titrate. A UDS is needed to verify patient's compliance with our office pain contract. This is ordered based off specific treatments related to chronic pain with the potential to abuse certain medications.
[2025-02-16 13:29] VITALS: BP 116/71; PULSE 75; RESP 16; O2SAT 97
[2025-02-16 14:41] VITALS: BP 125/68; PULSE 86; RESP 16; O2SAT 97
== END | disposition home or self-care (01) ==
PROVIDERS: PCP Family Medicine; Visit Provider Nurse Practitioner Family
DX: M51.16 Intervertebral disc disorders with radiculopathy, lumbar region (principal); M17.0 Bilateral primary osteoarthritis of knee; M46.1 Sacroiliitis, not elsewhere classified
CPT/HCPCS: 62370

== ENCOUNTER 2025-03-02 12:35 | Outpatient (CLI) | payer MEDICARE, SELFPAY ==
[2025-03-02 12:49] LABS: Basophils # 0.1 K/mm3 (0-0.2); Basophils % 0.8 % (0.1-2.0); Eosinophils % 0.5 % (0.1-12.0); Hematocrit 45.4 % (42.0-52.0); Hemoglobin 15.7 g/dL (14.1-18.0); Lymphocytes # 1.4 K/mm3 (0.7-4.5); Lymphocytes % 18.2 % (10-50); Mean Corpuscular HGB Conc 34.6 g/dL (31.8-35.4); Mean Corpuscular Hemoglobin 30.4 pg (27.0-31.2); Mean Corpuscular Volume 87.8 fl (80-94); Mean Platelet Volume 9.8 fl (7.4-10.4); Monocytes # 0.4 K/mm3 (0.1-1.0); Monocytes % 4.5 % (1.7-9.3); Neutrophils # 5.9 K/mm3 (1.8-7.8); Neutrophils % 75.6 % (37.0-80.0); Nucleated Red Blood Cells # 0 10^3/uL; Nucleated Red Blood Cells % 0 %; Platelet Count 206 K/mm3 (142-424); Red Blood Count 5.17 M/mm3 (4.60-6.20); Red Cell Distribution Width 12.6 % (11.5-17.5); Red Cell Distribution Width-SD 40.5 fL; White Blood Count 7.8 K/mm3 (4.8-10.8)
[2025-03-02 13:16] LABS: Alanine Aminotransferase 29 U/L (12-78); Alkaline Phosphatase 145 U/L (38-126); Anion Gap 9.9 mEq/L (5-15); Aspartate Amino Transferase 27 U/L (17-59); Bilirubin,Direct 0.2 mg/dl (0.0-0.4); Bilirubin,Indirect 0.7 mg/dL (0.0-0.9); Bilirubin,Total 0.9 mg/dl (0.2-1.3); Bilirubin,Unconjugated 0.7 mg/dL (0.0-1.1); Blood Urea Nitrogen 14 mg/dl (9-20); Calcium 10.5 mg/dl (8.4-10.2); Carbon Dioxide 31 mmol/L (22.0-30.0); Chloride 100 mmol/L (98-107); Chol/HDL Ratio 4.2 (1-3.5); Cholesterol 159 mg/dl (140-200); Estimated Glomerular Filt Rate 116 ml/min (>60); GFR (African American) 140 ML/MIN (>60); Glucose 227 mg/dl (74-100); HDL Cholesterol 38 mg/dl (40-60); Magnesium 2.2 mg/dl (1.6-2.3); Potassium 3.9 mmoL/L (3.5-5.1); Sodium 137 mmol/L (136-145); Total Protein,Serum 7.9 g/dl (6.3-8.2); Triglycerides 207 mg/dl (30-150); VLDL Cholesterol 41 mg/dL (0-40)
[2025-03-02 13:26] LABS: Direct LDL Cholesterol 71.69 mg/dL (100-129)
[2025-03-02 13:32] LABS: Free T4 (Free Thyroxine) 1.18 ng/dl (0.78-2.19)
[2025-03-02 13:35] LABS: Troponin I < 0.01 ng/ml (0.00-0.034)
[2025-03-02 13:49] LABS: Thyroid Stimulating Hormone 1.05 uIU/mL (0.465-4.68)
== END 2025-03-02 23:59 | disposition home or self-care (01) ==
LOC: LAB 12:36
PROVIDERS: PCP Family Medicine; Visit Provider Physician Assistant
DX: I25.118 Atherosclerotic heart disease of native coronary artery with other forms of angina pectoris (principal); I51.89 Other ill-defined heart diseases; R94.30 Abnormal result of cardiovascular function study, unspecified; R06.02 Shortness of breath; E11.9 Type 2 diabetes mellitus without complications
CPT/HCPCS: 36415; 80048; 80061; 80076; 83036; 83735; 84439; 84443; 84484; 85025

== ENCOUNTER 2025-03-03 15:56 | Emergency (ER) | payer MEDICARE, SELFPAY ==
--- NOTE | 2025-03-03 15:51 | ED_ITS ---
<Statement entered by Pura Porter MD - 03/03/25 19:41> I was consulted by the MICHELE, and we discussed the complexity of the problems being addressed. I approved the treatment and management plan for this patient's care in the emergency department, thus performing a substantive portion of the medical decision making. Pura Porter MD, CATA, FACEP Discharge Plan Disposition Patient Disposition: Home, Self-Care Condition: Good Prescriptions Prescriptions: New ranolazine 500 mg tablet extended release 12 hr 500 mg PO BID Qty: 60 0RF ondansetron 4 mg tablet,disintegrating 4 mg PO QID PRN (Reason: nausea and vomiting) Qty: 10 0RF No Action aspirin [Adult Low Dose Aspirin] 81 mg tablet,delayed release (DR/EC) 81 mg PO DAILY Qty: 30 5RF nitroglycerin 0.4 mg tablet, sublingual 0.4 mg sublingual Q5M PRN (Reason: chest pain) Qty: 25 0RF Rx Instructions: do not exceed 3 doses per episode metoprolol succinate 25 mg tablet extended release 24 hr 25 mg PO QDAY Qty: 90 3RF Ozempic 0.25 mg or 0.5 mg (2 mg/3 mL) pen injector 0.25 mg SQ QWEEK Patient Comments: INJECT 0.25 MG SUBCUTANEOUSLY ONCE A WEEK FOR 4 WEEKS, THEN INCREASE TO 0.5 MG ONCE A WEEK THEREAFTER DIRECTED sertraline 50 mg tablet 50 mg PO DAILY PRN Patient Comments: TAKE 1 TABLET BY MOUTH ONCE DAILY isosorbide mononitrate 60 mg tablet extended release 24 hr 60 mg PO DAILY Qty: 30 2RF hydroxyzine HCl 25 mg tablet 25 mg PO QID PRN (Reason: Anxiety) Rx Instructions: MAY TAKE HALF TO WHOLE TAB omeprazole 40 MG capsule,delayed release(DR/EC) 40 mg PO DAILY atorvastatin [Lipitor] 40 mg Tablet 40 mg PO HS Qty: 30 3RF prasugrel HCl [Effient] 10 mg Tablet 10 mg PO DAILY Qty: 30 6RF Referrals Follow up/Referrals: Provider,Referral, MD [Primary Care Provider] - See instructions Activity Restrictions/Add. Instructions Additional Instructions/Restrictions: As we discussed I have sent Ranexa and Zofran into your pharmacy. If your symptoms worsen or persist return to the ER. Otherwise Dr. Baez wants to see you in clinic at 1 PM on Thursday. Clinical Impressions Clinical Impression: Chest pain Stand Alone Forms Stand Alone Forms: Work/School Release Instructions Patient Instructions: DI for Chest Pain Print Language Print Language: Bengali Discharge ED Provider: Pura Porter HPI General Chief Complaint: Chest Pain Stated Complaint: CP Time Seen by Provider: 03/03/25 16:02 History of Present Illness HPI narrative: Patient presents for evaluation of chest pain. Patient recently underwent stent placement by Dr. Baez at the end of December. He has been having intermittent chest pain since his stent placement. He actually saw cardiology for those symptoms yesterday and ultimately his workup revealed a normal troponin and they started him on Imdur. Patient states however that his chest pain continued unabated since starting his medication. He was advised to come to the ER for further evaluation. Patient also reports he has been nauseated and has not eaten today. He denies any shortness of breath fever chills hemoptysis hematochezia melena vomiting or diarrhea. Related Data Home Medications ?Medication ?Instructions ?Recorded ?Confirmed omeprazole 40 mg capsule,delayed 40 mg PO DAILY GERD 02/05/18 03/02/25 release semaglutide 0.25 mg or 0.5 mg (2 0.25 mg SQ QWEEK 01/16/25 03/02/25 mg/3 mL) subcutaneous pen injector (Ozempic) hydroxyzine HCl 25 mg tablet 25 mg PO QID PRN Anxiety 01/20/25 03/02/25 sertraline 50 mg tablet 50 mg PO DAILY PRN 03/02/25 03/02/25 Previous Rx's ?Medication ?Instructions ?Recorded aspirin 81 mg tablet,delayed 81 mg PO DAILY #30 tabs 01/05/25 release (Adult Low Dose Aspirin) metoprolol succinate 25 mg 25 mg PO QDAY #90 tabs 01/05/25 tablet,extended release 24 hr nitroglycerin 0.4 mg sublingual 0.4 mg sublingual Q5M PRN chest 01/05/25 tablet pain #25 tabs atorvastatin 40 mg tablet (Lipitor) 40 mg PO HS #30 tabs 01/25/25 prasugrel HCl 10 mg tablet 10 mg PO DAILY #30 tabs 01/25/25 (Effient) isosorbide mononitrate 60 mg 60 mg PO DAILY #30 tabs 03/02/25 tablet,extended release 24 hr ondansetron 4 mg disintegrating 4 mg PO QID PRN nausea and 03/03/25 tablet vomiting #10 tabs ranolazine 500 mg tablet,extended 500 mg PO BID #60 tabs 03/03/25 release,12 hr Allergies Allergy/AdvReac Type Severity Reaction Status Date / Time gabapentin (From NEURONTIN) Allergy Unknown HALLUCINATI Verified 03/02/25 12:10 ONS PFSH PFS Disclaimer: The information contained in this section may have been updated after the patient was seen, as this information can be updated by other users. Medical History (Updated 03/03/25 @ 17:01 by IRMA Ricardo) Diabetes Chest pain Abnormal findings on diagnostic imaging of heart and coronary circulation Diastolic dysfunction Coronary artery disease CAD (coronary artery disease) COPD (chronic obstructive pulmonary disease) Anxiety Rotator cuff arthropathy of both shoulders Surgical History History of back surgery History of repair of left rotator cuff History of repair of right rotator cuff History of cholecystectomy Family History Other Family history of diabetes mellitus Family history of heart disease Social History Smoking Status: Never smoker second hand exposure: No alcohol intake: never substance use type: denies use current occupational status: other Travel in the last 8 weeks?: None household members: spouse housing: house current occupational exposures/hazards: No caffeine: Yes Have you lived/traveled outside [place] in past 30 days?: No Contact w/someone who lives/traveled outside US past 30 days?: No Exposure to someone with infectious disease in past 14 days?: No Do you have a fever (greater than 100.4 F or 38 C)?: No Have you tested positive for COVID-19?: No Exposed to someone with COVID-19 in past 14 days?: No Do you have a sore throat?: No Do you have a cough?: No Do you have any weakness?: No Do you have any diarrhea?: No Are you experiencing any unusual bleeding?: No Do you have any muscle aches/pain?: No Do you have any abdominal pain?: No Are you experiencing loss of taste or smell?: No Other Medical History Have you received the Flu Vaccine for this season: No Have you received the Pneumonia Vaccine: No ROS Obtained: Yes Systems reviewed as appropriate & no additional complaints except as documented Physical Exam General General appearance: alert and in no apparent distress Respiratory Respiratory exam: Present normal lung sounds bilaterally Cardiovascular Cardiovascular exam: Present regular rate Neurological Exam Neurological exam: Present alert and oriented X3 HEART Score HEART Score HEART Score assessment performed?: Yes History (anamnesis): Slightly suspicious ECG: Non-specific disturbance Age: 45-65 years Risk factors: Atherosclerosis history Troponin: </= normal limit HEART Score: 4 Critical Care Critical Care Time Critical Care Time: Yes Attestation: On 03/03/25, the high probability of a clinically significant, sudden or life threatening deterioration of the following system(s) required my full and direct attention, intervention and personal management. The time I documented below is in addition to time spent performing reported procedures but includes the following listed in this critical care notation. Total Time Total Critical Care Time: 35 Medical Decision Making Medical Records Medical records reviewed: Yes I reviewed the patient's medical records. Cyril Inquiry Pt receiving controlled substance: No Vital Signs Vital Signs: 03/03/25 15:54 03/03/25 16:09 03/03/25 16:30 Temperature 98 F Temperature Source Oral Pulse Rate 71 75 Pulse Rate [Left] 73 Respiratory Rate 18 24 Blood Pressure 97/64 L Blood Pressure [Right Arm] 108/69 L Blood Pressure Mean [Right Arm] 82 Blood Pressure Source [Right Arm] Automatic Cuff Blood Pressure Position [Right Arm] Sitting 02 Sat by Pulse Oximetry 98 97 Oxygen Delivery Method Room Air Lab Data Lab results reviewed: Yes I reviewed the patient's lab results. Labs: Lab Results 03/03/25 15:53: Sodium 134 L, Potassium 4.3, Chloride 101, Carbon Dioxide 29, Anion Gap 8.3, BUN 15, Creatinine 0.70, Estimated Creat Clear 151, Estimated GFR 116, Est GFR ( Amer) 140, Glucose 186 H, Calcium 9.6, Troponin I < 0.01 03/03/25 15:53 Response Orders (Tests/Meds): ED MEDICATIONS Discontinued Medications Generic Name Dose Route Start Last Admin Trade Name Freq PRN Reason Stop Dose Admin Ketorolac Tromethamine 15 mg 03/03/25 16:02 03/03/25 16:16 Ketorolac 30mg/Ml Vial IV 03/03/25 16:03 15 mg ONCE ONE Administration Ranolazine 500 mg 03/03/25 16:54 03/03/25 17:10 Ranolazine 500mg Er Tablet PO 03/03/25 16:55 500 mg ONCE ONE Administration ORDERS Category Date Time Status BMP [Basic Metabolic Panel] Stat Lab 03/03/25 15:53 Completed BNP [NT Pro Brain Natriuretic Pep.] Stat Lab 03/03/25 15:53 Received HIV Combo Stat Lab 03/03/25 15:53 Received Hepatitis C Ab Qual. W/ RFX Stat Lab 03/03/25 15:53 Received Procalcitonin Stat Lab 03/03/25 15:53 Received Trop I [Troponin I] Stat Lab 03/03/25 15:53 Completed Troponin I Q3H Lab 03/03/25 19:15 Ordered Troponin I Q3H Lab 03/03/25 22:15 Ordered MDM Narrative Medical Decision Narrative: In summary patient is a 59-year-old male who presents to the emergency department for evaluation of chest pain. Patient is hemodynamically stable with a blood pressure 108/69 pulse 73 with sinus rhythm on the bedside monitor breathing 18 times a minute satting at 90% on room air upon arrival, afebrile at 98. Physical exam reveals no reproducible chest pain on palpation, breath sounds clear and equal bilaterally to the bases with adventitious sounds no dependent edema noted.. Differential diagnosis includes ACS versus angina versus reperfusion pain etc. Initial workup will be conducted with hematologic labs twelve-lead EKG. Initial interventions include Toradol. Initial workup reviewed by me shows that his hematologic labs are significant for an undetectable troponin and given his ongoing continuous chest pain since yesterday and an undetectable troponin yesterday as well as today only 1 troponin will be done.. Upon repeat evaluation patient reported significant improvement in his chest pain after Toradol. Given this I had interactive discussion with Dr. Baez regarding patient's presentation is OBRIEN and patient management and Dr. Baez advised to start the patient on Ranexa and advised him to follow-up in clinic on Thursday at 1 PM. If he has recurrence of his chest pain worsening of his signs or symptoms to return to the ER. Patient given the details of this conversation and he is comfortable going home with those follow- up instructions. Thus patient will be discharged with a prescription for Ranexa with first dose given here and Zofran follow-up at 1 PM with cardiology on Thursday and strict return precautions.
--- NOTE | 2025-03-03 15:53 | ECG_ITS ---
APPROVED REPORT Exam: Resting ECG HR:69 bpm ECG Measurements Heart Rate [address] 172 P 34 QRSd 101 QRS 73 QT 371 T 51 QTc 391 Conclusion SINUS RHYTHM NORMAL ECG UNCONFIRMED REPORT Electronically signed by : Rocky Porter, 03/03/2025 22:59:29
[2025-03-03 15:54] VITALS: BP 108/69; PULSE 73; RESP 18; TEMP 36.6; O2SAT 98; BMI 27.8
[2025-03-03 16:09] VITALS: PULSE 71
[2025-03-03 16:15] LABS: Blood Urea Nitrogen 15 mg/dl (9-20); Calcium 9.6 mg/dl (8.4-10.2); Carbon Dioxide 29 mmol/L (22.0-30.0); Creatinine Clearance Estimated 151 mL/min (50-200); Estimated Glomerular Filt Rate 116 ml/min (>60); GFR (African American) 140 ML/MIN (>60); Glucose 186 mg/dl (74-100); Potassium 4.3 mmoL/L (3.5-5.1); Sodium 134 mmol/L (136-145)
[2025-03-03] MEDS: KETOROLAC 30MG/ML VIAL 15 MG IV (16:16)
[2025-03-03 16:20] LABS: Anion Gap 8.3 mEq/L (5-15); Chloride 101 mmol/L (98-107)
[2025-03-03 16:30] VITALS: BP 97/64; PULSE 75; RESP 24; O2SAT 97
[2025-03-03 16:31] LABS: Troponin I < 0.01 ng/ml (0.00-0.034)
[2025-03-03] MEDS: RANOLAZINE 500MG ER TABLET 500 MG PO (17:10)
[2025-03-03 17:14] LABS: HIV Combo NEGATIVE (Negative)
[2025-03-03 17:17] VITALS: BP 111/71; PULSE 83; RESP 18; TEMP 36.6
[2025-03-03 17:21] LABS: Hepatitis C Ab Qual. W/ RFX NEGATIVE (Negative)
[2025-03-03 17:28] LABS: NT Pro Brain Natriuretic Pep. < 20.0 pg/mL (0-125)
[2025-03-03 17:36] LABS: Procalcitonin 0.077 ng/mL (0.0-2.0)
== END 2025-03-03 17:19 | disposition home or self-care (01) ==
PROVIDERS: Physician Assistant; Emergency Provider Student in an Organized Health Care Education/Training Program
DX: R07.89 Other chest pain (principal); R11.0 Nausea; Z11.59 Encounter for screening for other viral diseases; Z11.4 Encounter for screening for human immunodeficiency virus [HIV]
CPT/HCPCS: 80048; 83880; 84145; 84484; 86803; 87389; 93005; 96374; 99284; J1885

== ENCOUNTER 2025-03-17 15:27 | Day surgery (SDC) | payer MEDICARE, SELFPAY ==
[2025-03-17 15:33] VITALS: BP 109/75; PULSE 79; RESP 16; O2SAT 95; BMI 27.1
--- NOTE | 2025-03-17 15:37 | P.HP_ITS ---
History of Present Illness *Admission Date: 03/17/25 *Reason for visit:: Intrathecal refill; DDD *History of present illness: Degenerative disc disease [facility] Disclaimer: The information contained in this section may have been updated after the patient was seen, as this information can be updated by other users. Medical History HLD (hyperlipidemia) Diabetes Chest pain Abnormal findings on diagnostic imaging of heart and coronary circulation Diastolic dysfunction Coronary artery disease CAD (coronary artery disease) COPD (chronic obstructive pulmonary disease) Anxiety Rotator cuff arthropathy of both shoulders Surgical History History of back surgery History of repair of left rotator cuff History of repair of right rotator cuff History of cholecystectomy Family History Other Family history of diabetes mellitus Family history of heart disease Social History Smoking Status: Never smoker second hand exposure: No alcohol intake: never substance use type: denies use current occupational status: other Travel in the last 8 weeks?: None household members: spouse housing: house current occupational exposures/hazards: No caffeine: Yes Have you lived/traveled outside US in past 30 days?: No Contact w/someone who lives/traveled outside US past 30 days?: No Exposure to someone with infectious disease in past 14 days?: No Do you have a fever (greater than 100.4 F or 38 C)?: No Have you tested positive for COVID-19?: No Exposed to someone with COVID-19 in past 14 days?: No Do you have a sore throat?: No Do you have a cough?: No Do you have any weakness?: No Do you have any diarrhea?: No Are you experiencing any unusual bleeding?: No Do you have any muscle aches/pain?: No Do you have any abdominal pain?: No Are you experiencing loss of taste or smell?: No Other Medical History Have you received the Flu Vaccine for this season: No Have you received the Pneumonia Vaccine: No Review of Systems Review of Systems Review of systems:: pertinent systems reviewed and negative unless documented below Review of systems (narrative): Review of Systems: General: No recent weight changes, no fever, no sleep disturbances Respiratory: No cough, no shortness of air, no recurring pulmonary infections Cardiovascular/peripheral vascular: No chest pain, no palpitations, no edema, no shortness of breath Gastrointestinal: No new onset incontinence, normal bowel movements reported Genitourinary: No new onset incontinence Musculoskeletal: Chronic back pain Psychiatric: [Normal mood/affect] Neurological: [Denies weakness in extremities], [denies balance issues] Meds Home Medications and Allergies Home Medications ?Medication ?Instructions ?Recorded ?Confirmed ?Type omeprazole 40 mg capsule,delayed 40 mg PO DAILY GERD 02/05/18 03/17/25 History release aspirin 81 mg tablet,delayed 81 mg PO DAILY #30 tabs 01/05/25 03/17/25 Rx release (Adult Low Dose Aspirin) metoprolol succinate 25 mg 25 mg PO QDAY #90 tabs 01/05/25 03/17/25 Rx tablet,extended release 24 hr nitroglycerin 0.4 mg sublingual 0.4 mg sublingual Q5M PRN chest 01/05/25 03/17/25 Rx tablet pain #25 tabs semaglutide 0.25 mg or 0.5 mg (2 0.25 mg SQ QWEEK 01/16/25 03/17/25 History mg/3 mL) subcutaneous pen injector (Ozempic) hydroxyzine HCl 25 mg tablet 25 mg PO QID PRN Anxiety 01/20/25 03/17/25 History prasugrel HCl 10 mg tablet 10 mg PO DAILY #30 tabs 01/25/25 03/17/25 Rx (Effient) sertraline 50 mg tablet 50 mg PO DAILY 03/02/25 03/17/25 History ondansetron 4 mg disintegrating 4 mg PO QID PRN nausea and 03/03/25 03/17/25 Rx tablet vomiting #10 tabs ranolazine 500 mg tablet,extended 500 mg PO BID #60 tabs 03/03/25 03/17/25 Rx release,12 hr evolocumab 140 mg/mL subcutaneous 140 mg SQ Q2W #3 mL 03/07/25 03/17/25 Rx syringe (Repatha Syringe) New Prescriptions to Start Prescriptions: Allergies Allergy/AdvReac Type Severity Reaction Status Date / Time gabapentin (From NEURONTIN) Allergy Unknown HALLUCINATI Verified 05/06/25 10:50 ONS Exam Constitutional Constitutional: no acute distress *Routine HEENT Exam Head: Present normocephalic and atraumatic Eye: Present PERRL ENT: Present mucous membranes moist *Routine Neck Exam Neck: Present supple *Routine Respiratory Exam Respiratory: Present CTA bilaterally *Routine Cardiovascular Exam Cardiovascular: Present RRR *Routine Abdominal Exam Abdominal: Present soft *Routine Rectal Exam Rectal:: deferred *Routine Genitalia Exam Genitalia:: normal male Routine Back/Spine/Pelvis Exam Back/Spine: Present pain with flexion *Routine Skin Exam Skin: Present intact and warm *Routine Neurological Exam Neurological: Present alert and oriented X3 Routine Psychiatric Exam Psychiatric: Present normal affect and normal thought process Assessment and Plan *Assessment and plan (1) Degenerative disc disease, lumbar: Status: Acute Category: Medical Code(s): M51.369 - Other intervertebral disc degeneration, lumbar region without mention of lumbar back pain or lower extremity pain (2) Lumbar radiculopathy: Status: Acute Category: Medical Code(s): M54.16 - Radiculopathy, lumbar region Plan Patient has been instructed to contact the clinic with any concerns before the next appointment. Dr. Schwartz has reviewed this note and agrees with this plan of care. This note was dictated using voice recognition software and make contain errors or omissions. All injections are used with Lidocaine, Bupivacaine and dexamethasone. Occasionally urine drug screen is needed to verify patient's compliance with our office pain contract. This is ordered based off specific treatments related to chronic pain with the potential to abuse certain medications.
--- NOTE | 2025-03-17 15:38 | P.PCN_ITS ---
Procedure Date: 03/17/25 Time: 16:08 Anesthesiologist:: Maranda Mariee APRN Complications:: None Pre-procedure Diagnosis:: Degenerative disc disease of lumbar spine with lumbar radiculopathy symptoms Post-procedure Diagnosis:: Same Indications for Procedure:: Patient is a pleasant 59-year-old male who presents today for intrathecal refill and reprogram. Today he rates his pain a 5 out of 10. He denies any new trauma or injury. He is currently managed with Dilaudid 15 mg/mL with a daily dose of 7.256 mg/day. He denies any side effects. His Cyril has been reviewed and is appropriate. Physical Exam: General: Alert and oriented x3, no acute distress, pleasant and cooperative Lungs: Respirations even and unlabored, symmetrical chest expansion Eyes: PERRL Musculoskeletal: Flexion and extension of lumbar [spine] somewhat guarded secondary to pain, [antalgic gait noted] Neurological: Speech clear, no gross sensory deficit Procedure Details:: Informed consent was obtained and the risk and benefits of the procedure were explained to the patient. The patient had noninvasive monitoring placed including noninvasive blood pressure cuff and pulse oximeter. Patient's pump was interrogated. The area over the pump was cleansed with chlorhexidine as a cleansing solution. In sterile fashion the pump was accessed with a 22-gauge needle. Approximately 5.8 mls of the pump solution was removed and discarded appropriately. The pump was then refilled with 20 mL's of Dilaudid 15 mg/mL. The needle was withdrawn and a bandage was placed over the puncture site. The infusion rate was reprogrammed and continued at its current dosage. The patient tolerated well with no complication. Plan and Disposition:: Patient tolerated the procedure well with no complications and was discharged neurologically intact. Patient will return to clinic on or before their next intrathecal refill date. We will see the patient back in the clinic at the next intrathecal refill. Patient has been instructed to contact the clinic with any concerns before the next appointment. Dr. Schwartz has reviewed this note and agrees with this plan of care. This note was dictated using voice recognition software and make contain errors or omissions. -- It Is medically necessary for this patient to continue to have their intrathecal pump refilled at regular intervals. This patient had an intrathecal pain pump implanted after meeting criteria of chronic intractable pain for greater than 3 months and failing conservative treatments. Patient has committed and been compliant to the treatment plan and all planned follow up care. Since implantation of the intrathecal pain pump, the patient has had decreased pain and been more functional. Oral medications have been reduced including intake of oral opioids. Patient continues to do well with intrathecal therapy with decrease in pain symptoms and increase in functional status. Stopping intrathecal medications can lead to life threatening withdrawal, seizures, cardiac arrest, severe pain, and possible . Pumps that are not refilled at regular intervals can be damages and cause and need for replacement. We continually titrate dose and concentration to optimize pain relief and function. We are limited in concentration for certain drugs to safely deliver medications through the pump and stay within the recommendations from the Polyanalgesic Con sensus Committee Guidelines. Depending on dose and concentration these pumps may need to be refilled sooner than 3 months as we titrate. A UDS is needed to verify patient's compliance with our office pain contract. This is ordered based off specific treatments related to chronic pain with the potential to abuse certain medications.
[2025-03-17 16:10] VITALS: BP 107/68; PULSE 79; RESP 16; O2SAT 95
[2025-03-17 16:20] VITALS: BP 112/68; PULSE 63; RESP 16; O2SAT 98
== END 2025-03-17 16:20 | disposition home or self-care (01) ==
PROVIDERS: PCP Family Medicine; Visit Provider Nurse Practitioner Family
DX: M51.16 Intervertebral disc disorders with radiculopathy, lumbar region (principal)
CPT/HCPCS: 62370

== ENCOUNTER 2025-04-21 11:28 | Day surgery (SDC) | payer MEDICARE, SELFPAY ==
--- NOTE | 2025-04-21 11:36 | EXP.PM.HP ---
History of Present Illness *Admission Date: 04/21/25 *Reason for visit:: Intrathecal refill; DDD *History of present illness: Same [facility] Disclaimer: The information contained in this section may have been updated after the patient was seen, as this information can be updated by other users. Medical History HLD (hyperlipidemia) Diabetes Chest pain Abnormal findings on diagnostic imaging of heart and coronary circulation Diastolic dysfunction Coronary artery disease CAD (coronary artery disease) COPD (chronic obstructive pulmonary disease) Anxiety Rotator cuff arthropathy of both shoulders Surgical History History of back surgery History of repair of left rotator cuff History of repair of right rotator cuff History of cholecystectomy Family History Other Family history of diabetes mellitus Family history of heart disease Social History Smoking Status: Never smoker second hand exposure: No alcohol intake: never substance use type: denies use current occupational status: other Travel in the last 8 weeks?: None household members: spouse housing: house current occupational exposures/hazards: No caffeine: Yes Have you lived/traveled outside US in past 30 days?: No Contact w/someone who lives/traveled outside US past 30 days?: No Exposure to someone with infectious disease in past 14 days?: No Do you have a fever (greater than 100.4 F or 38 C)?: No Have you tested positive for COVID-19?: No Exposed to someone with COVID-19 in past 14 days?: No Do you have a sore throat?: No Do you have a cough?: No Do you have any weakness?: No Do you have any diarrhea?: No Are you experiencing any unusual bleeding?: No Do you have any muscle aches/pain?: No Do you have any abdominal pain?: No Are you experiencing loss of taste or smell?: No Other Medical History Have you received the Flu Vaccine for this season: No Have you received the Pneumonia Vaccine: No Review of Systems Review of Systems Review of systems:: pertinent systems reviewed and negative unless documented below Review of systems (narrative): Review of Systems: General: No recent weight changes, no fever, no sleep disturbances Respiratory: No cough, no shortness of air, no recurring pulmonary infections Cardiovascular/peripheral vascular: No chest pain, no palpitations, no edema, no shortness of breath Gastrointestinal: No new onset incontinence, normal bowel movements reported Genitourinary: No new onset incontinence Musculoskeletal: Chronic back pain Psychiatric: [Normal mood/affect] Neurological: [Denies weakness in extremities], [denies balance issues] Meds Home Medications and Allergies Home Medications ?Medication ?Instructions ?Recorded ?Confirmed ?Type omeprazole 40 mg capsule,delayed 40 mg PO DAILY GERD 02/05/18 03/17/25 History release aspirin 81 mg tablet,delayed 81 mg PO DAILY #30 tabs 01/05/25 03/17/25 Rx release (Adult Low Dose Aspirin) metoprolol succinate 25 mg 25 mg PO QDAY #90 tabs 01/05/25 03/17/25 Rx tablet,extended release 24 hr nitroglycerin 0.4 mg sublingual 0.4 mg sublingual Q5M PRN chest 01/05/25 03/17/25 Rx tablet pain #25 tabs semaglutide 0.25 mg or 0.5 mg (2 0.25 mg SQ QWEEK 01/16/25 03/17/25 History mg/3 mL) subcutaneous pen injector (Ozempic) hydroxyzine HCl 25 mg tablet 25 mg PO QID PRN Anxiety 01/20/25 03/17/25 History prasugrel HCl 10 mg tablet 10 mg PO DAILY #30 tabs 01/25/25 03/17/25 Rx (Effient) sertraline 50 mg tablet 50 mg PO DAILY 03/02/25 03/17/25 History ondansetron 4 mg disintegrating 4 mg PO QID PRN nausea and 03/03/25 03/17/25 Rx tablet vomiting #10 tabs ranolazine 500 mg tablet,extended 500 mg PO BID #60 tabs 03/03/25 03/17/25 Rx release,12 hr evolocumab 140 mg/mL subcutaneous 140 mg SQ Q2W #3 mL 03/07/25 03/17/25 Rx syringe (Repatha Syringe) New Prescriptions to Start Prescriptions: Allergies Allergy/AdvReac Type Severity Reaction Status Date / Time gabapentin (From NEURONTIN) Allergy Unknown HALLUCINATI Verified 03/07/25 10:50 ONS Exam Constitutional Constitutional: no acute distress *Routine HEENT Exam Head: Present normocephalic and atraumatic Eye: Present PERRL ENT: Present mucous membranes moist *Routine Neck Exam Neck: Present supple *Routine Respiratory Exam Respiratory: Present CTA bilaterally *Routine Cardiovascular Exam Cardiovascular: Present RRR *Routine Abdominal Exam Abdominal: Present soft *Routine Rectal Exam Rectal:: deferred *Routine Genitalia Exam Genitalia:: deferred Routine Back/Spine/Pelvis Exam Back/Spine: Present pain with flexion *Routine Skin Exam Skin: Present intact and warm *Routine Neurological Exam Neurological: Present alert and oriented X3 Routine Psychiatric Exam Psychiatric: Present normal affect and normal thought process Assessment and Plan *Assessment and plan (1) Degenerative disc disease, lumbar: Status: Acute Category: Medical Code(s): M51.369 - Other intervertebral disc degeneration, lumbar region without mention of lumbar back pain or lower extremity pain (2) Lumbar radiculopathy: Status: Acute Category: Medical Code(s): M54.16 - Radiculopathy, lumbar region Plan Patient has been instructed to contact the clinic with any concerns before the next appointment. Dr. Schwartz has reviewed this note and agrees with this plan of care. This note was dictated using voice recognition software and make contain errors or omissions. All injections are used with Lidocaine, Bupivacaine and dexamethasone. Occasionally urine drug screen is needed to verify patient's compliance with our office pain contract. This is ordered based off specific treatments related to chronic pain with the potential to abuse certain medications.
--- NOTE | 2025-04-21 11:37 | P.PCN_ITS ---
Procedure Date: 04/21/25 Time: 11:47 Anesthesiologist:: Maranda Mariee APRN Complications:: None Pre-procedure Diagnosis:: Degenerative disc disease of lumbar spine with lumbar radiculopathy symptoms, chronic pain syndrome Post-procedure Diagnosis:: Same Indications for Procedure:: Patient is a pleasant 59-year-old male who presents today for intrathecal refill and reprogram. Today he rates his pain a 4 in his back however does right as 6 out of 10 in his right hip. Patient denies any new falls or injuries. He does state that he has been increasing his activity with the warmer weather and has been walking a lot and feels like this is aggravated some of his previous symptoms. Patient did have SI injections back in January that did provide 80% relief. He states that he really felt like these have really helped and are just now starting to wear off and would like to see about go ahead and getting scheduled for repeat injection. He does state the pain is interfering with his ability to perform activities of daily living such as cooking and cleaning.Patient is managed with intrathecal Dilaudid 15 mg/mL with a daily dose of 7.256 mg/day. He denies any side effects.His Cyril has been reviewed and is appropriate. Physical Exam: General: Alert and oriented x3, no acute distress, pleasant and cooperative Lungs: Respirations even and unlabored, symmetrical chest expansion Eyes: PERRL Musculoskeletal: Flexion and extension of lumbar [spine] somewhat guarded secondary to pain, [antalgic gait noted] point tenderness along right SI with positive right Ricco's, Carlos's, Gaenslen's, compression and distraction exam Neurological: Speech clear, no gross sensory deficit Procedure Details:: Informed consent was obtained and the risk and benefits of the procedure were explained to the patient. The patient had noninvasive monitoring placed including noninvasive blood pressure cuff and pulse oximeter. Patient's pump was interrogated. The area over the pump was cleansed with chlorhexidine as a cleansing solution. In sterile fashion the pump was accessed with a 22-gauge needle. Approximately 2.8 mls of the pump solution was removed and discarded appropriately. The pump was then refilled with 20 mL's of Dilaudid 15 mg/mL. The needle was withdrawn and a bandage was placed over the puncture site. The infusion rate was reprogrammed and increased 10% to Dilaudid 7.985 mg/day. The patient tolerated well with no complication. Plan and Disposition:: Patient tolerated the procedure well with no complications and was discharged neurologically intact. Patient is experiencing worsening pain along the right hip. They did have limited range of motion of the lumbar spine along with point tenderness along right SI joints and a positive right Ricco's, Carlos's, Gaens dee's, compression and distraction exam. I did discuss with the patient that I do believe they would benefit from right SI injections. Risk and benefits were discussed with the patient and they would like to proceed forward with this option. Patient has tried and failed conservative therapy. Patient has been actively doing conservative treatment including oral medication, heat and ice, topicals, at home exercising and stretching for longer than 12 weeks. Patient is having to adjust their activity based off the increased pain resulting in activity modification. I do believe the patient would benefit from SI injection. Patient's last injection in the SI joint was in January that did provide 80% relief and has lasted up until this last week. This will be a therapeutic injection with less than 1.5 mL of solution to be injected. Patient may still be a candidate of possible SI fusion in future. We will continue to monitor this. Patient will be scheduled for right SI injection under f luoroscopy. Patient will also be given a intrathecal refill date at today's appointment as well. Patient agrees with this plan of care. Patient has been instructed to contact the clinic with any concerns before the next appointment. Dr. Schwartz has reviewed this note and agrees with this plan of care. This note was dictated using voice recognition software and make contain errors or omissions. All injections are used with Lidocaine or Bupivacaine and dexamethasone unless diagnostic in which no steroids were injected. All injections are used with Lidocaine or Bupivacaine and dexamethasone unless diagnostic in which no steroids were injected. Patient will return to clinic on or before their next intrathecal refill date. We will see the patient back in the clinic at the next intrathecal refill. Patient has been instructed to contact the clinic with any concerns before the next appointment. Dr. Schwartz has reviewed this note and agrees with this plan of care. This note was dictated using voice recognition software and make contain errors or omissions. -- It Is medically necessary for this patient to continue to have their intrathecal pump refilled at regular intervals. This patient had an intrathecal pain pump implanted after meeting criteria of chronic intractable pain for greater than 3 months and failing conservative treatments. Patient has committed and been compliant to the treatment plan and all planned follow up care. Since implantation of the intrathecal pain pump, the patient has had decreased pain and been more functional. Oral medications have been reduced including intake of oral opioids. Patient continues to do well with intrathecal therapy with decrease in pain symptoms and increase in functional status. Stopping intrathecal medications can lead to life threatening withdrawal, seizures, cardiac arrest, severe pain, and possible . Pumps that are not refilled at regular intervals can be damages and cause and need for replacement. We continually titrate dose and concentration to optimize pain relief and function. We are limited in concentration for certain drugs to safely deliver medications through the pump and stay within the recommendations from the Polyanalgesic Consensus Committee Guidelines. Depending on dose and concentration these pumps may need to be refilled sooner than 3 months as we titrate. A UDS is needed to verify patient's compliance with our office pain contract. This is ordered based off specific treatments related to chronic pain with the potential to abuse certain medications.
[2025-04-21 11:45] VITALS: BP 109/64; BP 115/66; PULSE 73; PULSE 77; RESP 16; RESP 18; TEMP 36.4; O2SAT 97; BMI 27.1
[2025-04-21 11:55] VITALS: BP 122/71; PULSE 78; RESP 16; O2SAT 97
== END 2025-04-21 11:55 | disposition home or self-care (01) ==
PROVIDERS: PCP Family Medicine; Visit Provider Nurse Practitioner Family
DX: Z45.1 Encounter for adjustment and management of infusion pump (principal); M51.16 Intervertebral disc disorders with radiculopathy, lumbar region; G89.4 Chronic pain syndrome; E78.5 Hyperlipidemia, unspecified; E11.9 Type 2 diabetes mellitus without complications; I25.10 Atherosclerotic heart disease of native coronary artery without angina pectoris; J44.9 Chronic obstructive pulmonary disease, unspecified; F41.9 Anxiety disorder, unspecified; Z79.82 Long term (current) use of aspirin; Z79.899 Other long term (current) drug therapy; Z79.85 Long-term (current) use of injectable non-insulin antidiabetic drugs; Z88.8 Allergy status to other drugs, medicaments and biological substances
CPT/HCPCS: 62370

== ENCOUNTER 2025-05-16 13:51 | Day surgery (SDC) | payer MEDICARE, SELFPAY ==
[2025-05-16 14:01] VITALS: BP 113/64; PULSE 73; RESP 18; O2SAT 99; BMI 27.1
--- NOTE | 2025-05-16 14:17 | EXP.PAIN.PRO ---
Procedure Date: 05/16/25 Time: 14:10 Anesthesiologist:: Andrew Zimmer CRNA Complications:: None Pre-procedure Diagnosis:: Right sacroiliitis Post-procedure Diagnosis:: Same Indications for Procedure:: Patient is a very pleasant 59-year-old male who comes our clinic today for right sacroiliac joint injection cortisone local anesthetic. Patient describes right low lumbar back pain as constant, dull, aching. Right posterior hip pain. Difficulty transitioning from sitting to standing. Difficulty with ambulation due to right posterior hip pain. He rates his pain 7/10. Patient reporting today he is having very similar issues on the left side. Left sacroiliitis. He has extreme point tenderness over the left sacroiliac joint. He reports difficulty transitioning from sitting to standing due to the left sided low lumbar back pain. He has positive Gaenslen's, Carlos's, Ricco's test on the left. Left sacroiliac joint compression test positive. He rates pain 7/10. He is requesting left sacroiliac joint injection in the near future. We will submit for left sacroiliac joint injection approval.. Procedure Details:: Procedure: Right sacroliliac joint injection under fluoroscopy Informed consent was obtained and the risk and benefits of the procedure were explained to the patient.~ The patient was taken to the procedure room and noninvasive monitors were placed including noninvasive blood pressure cuff and pulse oximeter.~ The patient was placed prone on the procedure table.~ The~ right hip was cleansed using Betadine as a cleansing solution.~ C-arm fluorosocpy was used to view the right SI joint.~ The skin and subcutaneous tissues were anesthetized using Lidocaine 1.5% and a 25-gauge needle.~ After this, a 22-gauge spinal needle was inserted under fluoroscopic guidance into the inferior aspect of the right SI joint.~ Omnipaque dye was injected and a good spread was seen throughout the joint.~ After this, approximately 5 mL of bupivacaine 0.25% and dexamethasone 10 mg mg was incrementally injected into the sacroiliac joint.~ The patient tolerated the procedure well with no complications.~ The patient was observed in the Pain Clinic, then discharged home neurologically intact.~ Plan and Disposition:: Patient was discharged without incident.
[2025-05-16] MEDS: LIDOCAINE 1% 5ML PF VIAL 5 ML (14:23)
[2025-05-16] MEDS: BUPIVACAINE 0.25% 10ML INJ 25 MG IJ (14:23)
[2025-05-16] MEDS: DEXAMETHASONE 10MG/ML 1ML VIAL 10 MG (14:23)
[2025-05-16 14:24] VITALS: BP 113/64; PULSE 73; RESP 18; O2SAT 94
[2025-05-16 14:25] VITALS: BP 113/64; PULSE 73; RESP 18; O2SAT 99
[2025-05-16 14:28] VITALS: BP 102/67; PULSE 80; RESP 18; O2SAT 97
== END 2025-05-16 14:28 | disposition home or self-care (01) ==
PROVIDERS: PCP Family Medicine; Visit Provider Nurse Anesthetist, Certified Registered
DX: M46.1 Sacroiliitis, not elsewhere classified (principal); M25.551 Pain in right hip; F41.9 Anxiety disorder, unspecified; I25.10 Atherosclerotic heart disease of native coronary artery without angina pectoris; E11.9 Type 2 diabetes mellitus without complications; E78.5 Hyperlipidemia, unspecified; I51.89 Other ill-defined heart diseases; J44.9 Chronic obstructive pulmonary disease, unspecified; Z88.6 Allergy status to analgesic agent; Z79.82 Long term (current) use of aspirin; Z79.02 Long term (current) use of antithrombotics/antiplatelets; Z79.899 Other long term (current) drug therapy; Z79.84 Long term (current) use of oral hypoglycemic drugs
CPT/HCPCS: G0260; J0665; J1100; J2003

== ENCOUNTER 2025-05-18 09:34 | Day surgery (SDC) | payer MEDICARE, SELFPAY ==
--- NOTE | 2025-05-18 09:42 | EXP.PM.HP ---
History of Present Illness *Admission Date: 05/18/25 *Reason for visit:: Intrathecal refill; DDD *History of present illness: Same [facility] Disclaimer: The information contained in this section may have been updated after the patient was seen, as this information can be updated by other users. Medical History HLD (hyperlipidemia) Diabetes Chest pain Abnormal findings on diagnostic imaging of heart and coronary circulation Diastolic dysfunction Coronary artery disease CAD (coronary artery disease) COPD (chronic obstructive pulmonary disease) Anxiety Rotator cuff arthropathy of both shoulders Surgical History History of back surgery History of repair of left rotator cuff History of repair of right rotator cuff History of cholecystectomy Family History Other Family history of diabetes mellitus Family history of heart disease Social History Smoking Status: Never smoker second hand exposure: No alcohol intake: never substance use type: denies use current occupational status: other Travel in the last 8 weeks?: None household members: spouse housing: house current occupational exposures/hazards: No caffeine: Yes Have you lived/traveled outside [place] in past 30 days?: No Contact w/someone who lives/traveled outside [place] past 30 days?: No Exposure to someone with infectious disease in past 14 days?: No Do you have a fever (greater than 100.4 F or 38 C)?: No Have you tested positive for COVID-19?: No Exposed to someone with COVID-19 in past 14 days?: No Do you have a sore throat?: No Do you have a cough?: No Do you have any weakness?: No Do you have any diarrhea?: No Are you experiencing any unusual bleeding?: No Do you have any muscle aches/pain?: No Do you have any abdominal pain?: No Are you experiencing loss of taste or smell?: No Other Medical History Have you received the Flu Vaccine for this season: No Have you received the Pneumonia Vaccine: No Review of Systems Review of Systems Review of systems:: pertinent systems reviewed and negative unless documented below Review of systems (narrative): Review of Systems: General: No recent weight changes, no fever, no sleep disturbances Respiratory: No cough, no shortness of air, no recurring pulmonary infections Cardiovascular/peripheral vascular: No chest pain, no palpitations, no edema, no shortness of breath Gastrointestinal: No new onset incontinence, normal bowel movements reported Genitourinary: No new onset incontinence Musculoskeletal: Chronic back pain Psychiatric: [Normal mood/affect] Neurological: [Denies weakness in extremities], [denies balance issues] Meds Home Medications and Allergies Home Medications ?Medication ?Instructions ?Recorded ?Confirmed ?Type omeprazole 40 mg capsule,delayed 40 mg PO DAILY GERD 02/05/18 05/16/25 History release aspirin 81 mg tablet,delayed 81 mg PO DAILY #30 tabs 01/05/25 05/16/25 Rx release (Adult Low Dose Aspirin) metoprolol succinate 25 mg 25 mg PO QDAY #90 tabs 01/05/25 05/16/25 Rx tablet,extended release 24 hr nitroglycerin 0.4 mg sublingual 0.4 mg sublingual Q5M PRN chest 01/05/25 05/16/25 Rx tablet pain #25 tabs hydroxyzine HCl 25 mg tablet 25 mg PO QID PRN Anxiety 01/20/25 05/16/25 History prasugrel HCl 10 mg tablet 10 mg PO DAILY #30 tabs 01/25/25 05/16/25 Rx (Effient) sertraline 50 mg tablet 50 mg PO DAILY 03/02/25 05/16/25 History ondansetron 4 mg disintegrating 4 mg PO QID PRN nausea and 03/03/25 05/16/25 Rx tablet vomiting #10 tabs ranolazine 500 mg tablet,extended 500 mg PO BID #60 tabs 03/03/25 05/16/25 Rx release,12 hr evolocumab 140 mg/mL subcutaneous 140 mg SQ Q2W #3 mL 03/07/25 05/16/25 Rx syringe (Repatha Syringe) empagliflozin 25 mg tablet 25 mg PO DAILY 05/15/25 05/16/25 History New Prescriptions to Start Prescriptions: Allergies Allergy/AdvReac Type Severity Reaction Status Date / Time gabapentin (From NEURONTIN) Allergy Unknown HALLUCINATI Verified 05/15/25 13:04 ONS Exam Constitutional Constitutional: no acute distress *Routine HEENT Exam Head: Present normocephalic and atraumatic Eye: Present PERRL ENT: Present mucous membranes moist *Routine Neck Exam Neck: Present supple *Routine Respiratory Exam Respiratory: Present CTA bilaterally *Routine Cardiovascular Exam Cardiovascular: Present RRR *Routine Abdominal Exam Abdominal: Present soft *Routine Rectal Exam Rectal:: deferred *Routine Genitalia Exam Genitalia:: deferred Routine Back/Spine/Pelvis Exam Back/Spine: Present pain with flexion *Routine Skin Exam Skin: Present intact, dry and warm *Routine Neurological Exam Neurological: Present alert and oriented X3 Routine Psychiatric Exam Psychiatric: Present normal affect and normal thought process Assessment and Plan *Assessment and plan (1) Sacroiliitis: Status: Acute Category: Medical Code(s): M46.1 - Sacroiliitis, not elsewhere classified (2) Lumbar radiculopathy: Status: Acute Category: Medical Code(s): M54.16 - Radiculopathy, lumbar region (3) Degenerative disc disease, lumbar: Status: Acute Category: Medical Code(s): M51.369 - Other intervertebral disc degeneration, lumbar region without mention of lumbar back pain or lower extremity pain Plan Patient has been instructed to contact the clinic with any concerns before the next appointment. Dr. Schwartz has reviewed this note and agrees with this plan of care. This note was dictated using voice recognition software and make contain errors or omissions. All injections are used with Lidocaine, Bupivacaine and dexamethasone. Occasionally urine drug screen is needed to verify patient's compliance with our office pain contract. This is ordered based off specific treatments related to chronic pain with the potential to abuse certain medications.
--- NOTE | 2025-05-18 09:43 | P.PCN_ITS ---
Procedure Date: 05/18/25 Time: 10:48 Anesthesiologist:: Maranda Mariee APRN Complications:: None Pre-procedure Diagnosis:: Degenerative disc disease of lumbar spine with lumbar radiculopathy symptoms, chronic pain syndrome Post-procedure Diagnosis:: Same Indications for Procedure:: Patient is a pleasant 59-year-old male who presents today for intrathecal refill and reprogram. He rates his pain today as 7 out of 10. He denies any new trauma or injury. He does state that he did notice significant improvement with his last pump increase as well as he has right SI injection that he just hide. He states it was a world of difference in his upper thigh symptoms have dramatically went down. He is rating at least 80% improvement. Patient is currently managed with Dilaudid 15 mg/mL with a daily dose of 7.985 mg/day. He denies any side effects. His Cyril has been reviewed and is appropriate. Physical Exam: General: Alert and oriented x3, no acute distress, pleasant and cooperative Lungs: Respirations even and unlabored, symmetrical chest expansion Eyes: PERRL Musculoskeletal: Flexion and extension of lumbar [spine] somewhat guarded secondary to pain, [antalgic gait noted] Neurological: Speech clear, no gross sensory deficit Procedure Details:: Informed consent was obtained and the risk and benefits of the procedure were explained to the patient. The patient had noninvasive monitoring placed including noninvasive blood pressure cuff and pulse oximeter. Patient's pump was interrogated. The area over the pump was cleansed with chlorhexidine as a cleansing solution. In sterile fashion the pump was accessed with a 22-gauge needle. Approximately 5.2 mls of the pump solution was removed and discarded appropriately. The pump was then refilled with 20 mL's of Dilaudid 15 mg/mL. The needle was withdrawn and a bandage was placed over the puncture site. The infusion rate was reprogrammed and continued at its current dosage. The patient tolerated well with no complication. Plan and Disposition:: Patient tolerated the procedure well with no complications and was discharged neurologically intact. Patient did ask whether or not if we had any uptight about if he would be able to get his left SI joint injected. He states that he spoke with Pat on the day of his injection regarding this. I did funeral pre arrangement counselor him that our accounting manager controller is out of the office today and that I will have her follow-up with him on Thursday. Patient agrees with this plan of care. Patient will return to clinic on or before their next intrathecal refill date. We will see the patient back in the clinic at the next intrathecal refill. Patient has been instructed to contact the clinic with any concerns before the next appointment. Dr. Schwartz has reviewed this note and agrees with this plan of care. This note was dictated using voice recognition software and make contain errors or omissions. -- It Is medically necessary for this patient to continue to have their intrathecal pump refilled at regular intervals. This patient had an intrathecal pain pump implanted after meeting criteria of chronic intractable pain for greater than 3 months and failing conservative treatments. Patient has committed and been compliant to the treatment plan and all planned follow up care. Since implantation of the intrathecal pain pump, the patient has had decreased pain and been more functional. Oral medications have been reduced including intake of oral opioids. Patient continues to do well with intrathecal therapy with decrease in pain symptoms and increase in functional status. Stopping intrathe quinton medications can lead to life threatening withdrawal, seizures, cardiac arrest, severe pain, and possible . Pumps that are not refilled at regular intervals can be damages and cause and need for replacement. We continually titrate dose and concentration to optimize pain relief and function. We are limited in concentration for certain drugs to safely deliver medications through the pump and stay within the recommendations from the [employer] Consensus [employer] Guidelines. Depending on dose and concentration these pumps may need to be refilled sooner than 3 months as we titrate. A UDS is needed to verify patient's compliance with our office pain contract. This is ordered based off specific treatments related to chronic pain with the potential to abuse certain medications.
[2025-05-18 10:02] VITALS: BP 118/63; PULSE 62; RESP 18; O2SAT 94; BMI 27.1
[2025-05-18 10:55] VITALS: BP 110/66; PULSE 65; RESP 18; O2SAT 96
[2025-05-18 11:11] VITALS: BP 118/63; PULSE 62; RESP 18; O2SAT 94
== END 2025-05-18 10:55 | disposition home or self-care (01) ==
PROVIDERS: PCP Family Medicine; Visit Provider Nurse Practitioner Family
DX: Z45.1 Encounter for adjustment and management of infusion pump (principal); M51.16 Intervertebral disc disorders with radiculopathy, lumbar region; G89.4 Chronic pain syndrome; F41.9 Anxiety disorder, unspecified; I25.10 Atherosclerotic heart disease of native coronary artery without angina pectoris; E11.9 Type 2 diabetes mellitus without complications; E78.5 Hyperlipidemia, unspecified; Z88.8 Allergy status to other drugs, medicaments and biological substances; Z79.82 Long term (current) use of aspirin; Z79.899 Other long term (current) drug therapy
CPT/HCPCS: 62370

== ENCOUNTER 2025-06-16 10:22 | Day surgery (SDC) | payer MEDICARE, SELFPAY ==
[2025-06-16 10:40] VITALS: BP 111/67; PULSE 70; RESP 18; O2SAT 94; BMI 27.8
--- NOTE | 2025-06-16 10:44 | EXP.PAIN.PRO ---
Procedure Date: 06/16/25 Time: 10:51 Anesthesiologist:: Maranda Mariee APRN Complications:: None Pre-procedure Diagnosis:: Degenerative disc disease of lumbar spine with lumbar radiculopathy symptoms, chronic pain syndrome Post-procedure Diagnosis:: Same Indications for Procedure:: Patient is a pleasant 59-year-old male who presents today for intrathecal refill and reprogramming. He does currently rate his pain an 8 out of 10 today. He denies any new falls or injuries. He is having a lot of pain in his bilateral knees and bilateral shoulders. Patient did have gel injections there at Dr. Mariee's office and states that he is going to go over there and see them and see if he can get repeat of these injections. He does state that both of his shoulders are very tender and worse with increased activity. He states the pain does interfere with his ability perform activities of daily living such as cooking and cleaning. Patient has had rotator cuff repairs and denies any total shoulder replacement. Patient denies any prior injections for his shoulders however this has been a site of chronic pain for longer than a year. Patient is interested in any options we may be able to provide. He has currently managed with Dilaudid 15 mg/mL with a daily dose of 7.985 mg/day. He denies any side effects. His Cyril has been reviewed and is appropriate. Physical Exam: General: Alert and oriented x3, no acute distress, pleasant and cooperative Lungs: Respirations even and unlabored, symmetrical chest expansion Eyes: PERRL Musculoskeletal: Flexion and extension of bilateral shoulders somewhat guarded secondary to pain, [antalgic gait noted] Neurological: Speech clear, no gross sensory deficit Procedure Details:: Informed consent was obtained and the risk and benefits of the procedure were explained to the patient. The patient had noninvasive monitoring placed including noninvasive blood pressure cuff and pulse oximeter. Patient's pump was interrogated. The area over the pump was cleansed with chlorhexidine as a cleansing solution. In sterile fashion the pump was accessed with a 22-gauge needle. Approximately 4.4 mls of the pump solution was removed and discarded appropriately. The pump was then refilled with 20 mL's of Dilaudid 15 mg/mL. The needle was withdrawn and a bandage was placed over the puncture site. The infusion rate was reprogrammed and increased to 15% to 9.181 mg/day. The patient tolerated well with no complication. Plan and Disposition:: Patient tolerated the procedure well with no complications and was discharged neurologically intact. I did review over with the patient that I do believe he would benefit from bilateral intra-articular shoulder injections. Risk and benefits were discussed with patient and he does state that he would like to proceed forward with this however is dealing with his mother and her treatments. He states that he knows this next month is a little bit busier so he will call us if he wants to proceed forward between now and his next appointment otherwise he will get it scheduled after. Patient has had chronic bilateral shoulder pain related to a longstanding history of rotator cuff tears. Patient has had surgical intervention tried oral medications, heat and ice, topicals, at home stretching exercise for longer than 12 weeks as well as physical therapy. We will continue to follow-up with him and get him scheduled for the bilateral shoulder intra-articular injections without fluoroscopic or ultrasound guidance in future. Patient will return to clinic on or before their next intrathecal refill date. We will see the patient back in the clinic at the next intrathecal refill. Patient has been instructed to contact the clinic with any concerns before the next appointment. Dr. Schwartz has reviewed this note and agrees with this plan of care. This note was dictated using voice recognition software and make contain errors or omissions. -- It Is medically necessary for this patient to continue to have their intrathecal pump refilled at regular intervals. This patient had an intrathecal pain pump implanted after meeting criteria of chronic intractable pain for greater than 3 months and failing conservative treatments. Patient has committed and been compliant to the treatment plan and all planned follow up care. Since implantation of the intrathecal pain pump, the patient has had decreased pain and been more functional. Oral medications have been reduced including intake of oral opioids. Patient continues to do well with intrathecal therapy with decrease in pain symptoms and increase in functional status. Stopping intrathecal medications can lead to life threatening withdrawal, seizures, cardiac arrest, severe pain, and possible . Pumps that are not refilled at regular intervals can be damages and cause and need for replacement. We continually titrate dose and concentration to optimize pain relief and function. We are limited in concentration for certain drugs to safely deliver medications through the pump and stay within the recommendations from the [employer]al[employer] Consensus [employer] Guidelines. Depending on dose and concentration these pumps may need to be refilled sooner than 3 months as we titrate. A UDS is needed to verify patient's compliance with our office pain contract. This is ordered based off specific treatments related to chronic pain with the potential to abuse certain medications.
[2025-06-16 10:49] VITALS: BP 112/67; PULSE 74; RESP 18; O2SAT 97
[2025-06-16 11:08] VITALS: BP 112/68; PULSE 55; RESP 18; O2SAT 100
== END 2025-06-16 11:08 | disposition home or self-care (01) ==
PROVIDERS: PCP Family Medicine; Visit Provider Nurse Practitioner Family
DX: Z45.1 Encounter for adjustment and management of infusion pump (principal); M51.16 Intervertebral disc disorders with radiculopathy, lumbar region; G89.4 Chronic pain syndrome; M46.1 Sacroiliitis, not elsewhere classified; M25.562 Pain in left knee; M25.561 Pain in right knee; M25.512 Pain in left shoulder; M25.511 Pain in right shoulder; E78.5 Hyperlipidemia, unspecified; E11.9 Type 2 diabetes mellitus without complications; I25.10 Atherosclerotic heart disease of native coronary artery without angina pectoris; J44.9 Chronic obstructive pulmonary disease, unspecified; I51.89 Other ill-defined heart diseases; F41.9 Anxiety disorder, unspecified; Z79.82 Long term (current) use of aspirin; Z79.899 Other long term (current) drug therapy; Z79.02 Long term (current) use of antithrombotics/antiplatelets; Z79.84 Long term (current) use of oral hypoglycemic drugs; Z88.8 Allergy status to other drugs, medicaments and biological substances
CPT/HCPCS: 62370

== ENCOUNTER 2025-09-15 07:37 | Day surgery (SDC) | payer MEDICARE, SELFPAY ==
[2025-09-15] VITALS (15 sets, daily range): BP systolic 91–123; BP diastolic 52–74; PULSE 55–74; RESP 14–18; TEMP 36.6; O2SAT 90–97; BMI 27.8
--- NOTE | 2025-09-15 07:04 | IR_ITS ---
APPROVED REPORT Patient Location: Outpatient PROCEDURES Left heart catheterization Left ventriculogram Selective coronary angiogram INDICATION Abnormal Myoview, Angina pectoris, Known coronary artery disease Informed consent was obtained prior to the procedure. COMPLICATIONS NONE Estimated Blood Loss: LESS THAN 10 ML TECHNIQUE One percent lidocaine used to anesthetize the right anterior aspect of the wrist. The right radial artery was accessed via the Seldinger technique. A 6 Dominican sheath was placed in the right radial artery. 2.5 mg of Verapamil, 800 mcg of nitroglycerin, 1mg Lidocaine and 5000 U Heparin were given through the arterial sheath. The JL3 catheter was also used to perform left heart catheterization, left ventriculogram and selective coronary angiogram. At the end of the procedure the sheath was removed good hemostasis was achieved using Traclet band, patient was transferred to the postop holding area in stable condition. ANGIOGRAPHIC RESULTS The left main artery Normal The left anterior descending artery Has a stent in the proximal to mid segment which is widely patent free of in-stent restenosis with excellent proximal and distal transitioning. There is a bifurcating stent in the first diagonal artery which is widely patent with ostial 20 to 30% stenosis with excellent distal transitioning The circumflex artery Nondominant with 10 to 20% luminal regularities The right coronary artery Dominant normal The KRAUSE ventriculogram reveals Preserved to slightly reduced at 50 to 55% The left ventricular end-diastolic pressure Elevated at 20 mmHg IMPRESSION Coronary artery disease as described above Preserved ejection fraction to slightly reduced ejection fraction of 50 to 55% Elevated LVEDP PLAN 1. Medical management with risk factor modification 2. Consider cardiac MRI due to slight LV dysfunction Electronically signed by : Arden Baez MD 09/15/2025 10:19:40
[2025-09-15 08:06] LABS: Hematocrit 46.6 % (42.0-52.0); Hemoglobin 15.7 g/dL (14.1-18.0); Immature Granulocytes % 0.3 %; Mean Corpuscular HGB Conc 33.7 g/dL (31.8-35.4); Mean Corpuscular Hemoglobin 29.8 pg (27.0-31.2); Mean Corpuscular Volume 88.6 fl (80-94); Nucleated Red Blood Cells % 0 %; Platelet Count 171 K/mm3 (142-424); Red Blood Count 5.26 M/mm3 (4.60-6.20); Red Cell Distribution Width-SD 40.3 fL; White Blood Count 6.3 K/mm3 (4.8-10.8)
[2025-09-15 08:14] LABS: Anion Gap 12.2 mEq/L (5-15); Blood Urea Nitrogen 18 mg/dl (9-20); Calcium 9.3 mg/dl (8.4-10.2); Carbon Dioxide 23 mmol/L (22.0-30.0); Chloride 102 mmol/L (98-107); Creatinine Clearance Estimated 149 mL/min (50-200); Creatinine,Serum 0.70 mg/dl (0.66-1.25); Estimated Glomerular Filt Rate 115 ml/min (>60); GFR (African American) 140 ML/MIN (>60); Glucose 166 mg/dl (74-100); Potassium 4.2 mmoL/L (3.5-5.1); Sodium 133 mmol/L (136-145)
[2025-09-15] MEDS: LIDOCAINE 1% 10ML MDV 10 ML IJ (10:04)
[2025-09-15] MEDS: NITROGLYCERIN 800MCG/8ML SYR (CATH LAB) 800 MCG IA (10:04)
[2025-09-15] MEDS: HEPARIN 1,000 UNITS/500ML NS (CATH LAB) 3000 UNIT IV (10:04)
[2025-09-15] MEDS: HEPARIN 1,000 UNITS/ML 10ML VIAL (CATH LAB) 5000 UNIT IV (10:05)
[2025-09-15] MEDS: 0.9 % SODIUM CHLORIDE 500 ML 25 ML IV (10:05)
[2025-09-15] MEDS: VERAPAMIL 2.5MG/ML 2ML VIAL 2.5 MG IV (10:05)
[2025-09-15] MEDS: MIDAZOLAM HCL 1MG/ML 5ML VIAL 1 MG IV (10:14)
[2025-09-15] MEDS: IOPAMIDOL-370 (76%);100ML BOTTLE 50 ML IV (14:49)
== END 2025-09-15 13:48 | disposition home or self-care (01) ==
PROVIDERS: PCP Family Medicine; Visit Provider Internal Medicine
PROC: 4A023N7 Measurement of Cardiac Sampling and Pressure, Left Heart, Percutaneous Approach (ICD-10-PCS; CPT 93452; principal; 2025-09-15 11:00)
DX: I25.118 Atherosclerotic heart disease of native coronary artery with other forms of angina pectoris (principal); R94.30 Abnormal result of cardiovascular function study, unspecified; R06.02 Shortness of breath; J44.9 Chronic obstructive pulmonary disease, unspecified; E11.9 Type 2 diabetes mellitus without complications; I51.89 Other ill-defined heart diseases; E78.49 Other hyperlipidemia; Z95.5 Presence of coronary angioplasty implant and graft; Z79.82 Long term (current) use of aspirin; Z79.02 Long term (current) use of antithrombotics/antiplatelets; Z79.01 Long term (current) use of anticoagulants; Z79.899 Other long term (current) drug therapy; Z82.49 Family history of ischemic heart disease and other diseases of the circulatory system; Z88.8 Allergy status to other drugs, medicaments and biological substances
CPT/HCPCS: 80048; 85025; 93458; 99152; C1725; C1769; J1200; J1644; J7040; Q9967